=== PATIENT | female | born 1955 | race Caucasian/White ===

== ENCOUNTER 2016-09-22 10:34 | Inpatient (IN) | payer MEDICARE ==
[2016-09-22] MEDS ORDERED: HYDROmorphone 1 MG/ML 1 ML SYRINGE IVP STA ×2 (11:04→12:56)
[2016-09-22] MEDS ORDERED: ONDANSETRON 4 MG/2 ML VIAL IVP STA (11:04)
[2016-09-22] MEDS ORDERED: SODIUM CHLORIDE 0.9% 1,000 ML IV STA ×2 (11:04)
--- NOTE | 2016-09-22 11:10 | ED ---
General Adult HPI - General Source: patient, RN notes reviewed Mode of arrival: wheelchair Limitations: no limitations <Rory Rivera - Last Filed: 09/22/16 12:57> <Humble Yeung - Last Filed: 09/22/16 13:02> - General Chief complaint: Abdominal Pain Stated complaint: vomiting,side pain Time Seen by Provider: 09/22/16 10:48 - History of Present Illness Initial comments: Patient 61-year-old female who presents emergency room today with a chief complaint of right-sided abdominal pain and back pain 6 days. Does admit that she has had increased urinary frequency but only urinating small amounts. She states that she has seen a pink color on. His blood. Also admits that this pain is worse after she eats. she admits to symptoms of nausea vomiting. Denies any other complaints or symptoms at this time. Patient denies any recent fever, chills, shortness of breath, chest pain, back pain, numbness or tingling , constipation or diarrhea, headaches or visual changes, or any other complaints. (Rory Rivera) - Related Data Home Medications Medication Instructions Recorded Confirmed Amitriptyline HCl [Elavil] 100 mg PO HS 09/10/13 09/22/16 Lisinopril-Hctz (Unknown Dose) 1 tab PO DAILY 09/22/16 09/22/16 Morphine Sulfate ER [Ms Contin 30 mg PO Q12HR 09/22/16 09/22/16 30Mg] predniSONE 10 mg PO DAILY 09/22/16 09/22/16 Allergies Allergy/AdvReac Type Severity Reaction Status Date / Time ketorolac tromethamine Allergy Anaphylaxis Verified 09/22/16 10:57 [From Toradol] metoclopramide HCl Allergy Anaphylaxis Verified 09/22/16 10:57 [From Reglan] NSAIDS (Non-Steroidal Allergy Nausea & Verified 09/22/16 10:57 Anti-Inflamma Vomiting prochlorperazine edisylate Allergy Anaphylaxis Verified 09/22/16 10:57 [From Compazine] prochlorperazine maleate Allergy Anaphylaxis Verified 09/22/16 10:57 [From Compazine] Sulfa (Sulfonamide Allergy Rash/Hives Verified 09/22/16 10:57 Antibiotics) acetaminophen [From Tylenol] AdvReac Unknown Verified 09/22/16 10:57 Review of Systems ROS Other: All systems not noted in ROS Statement are negative. <Rory Rivera - Last Filed: 09/22/16 12:57> ROS Other: All systems not noted in ROS Statement are negative. <Humble Yeung - Last Filed: 09/22/16 13:02> ROS Statement: Those systems with pertinent positive or pertinent negative responses have been documented in the HPI. Past Medical History Past Medical History: Asthma, Blood Disorder, Cancer, GI Bleed, Hypertension, Pneumonia Additional Past Medical History / Comment(s): Multiple tick bites and negative for Lyme disease, diagnosed with Ellerbe spotted fever, basal cell carcinoma , chronic back pain.HAS CLL History of Any Multi-Drug Resistant Organisms: C-DIFF Date of last positivie culture/infection: OCTOBER 2013 MDRO Source:: STOOL Past Surgical History: Appendectomy, Back Surgery, Section, Hysterectomy, Tonsillectomy Additional Past Surgical History / Comment(s): Removal of basal cell carcinoma from the face, colonoscopy positive for diverticulosis. Past Anesthesia/Blood Transfusion Reactions: No Reported Reaction Past Psychological History: No Psychological Hx Reported Smoking Status: Former smoker Past Alcohol Use History: None Reported Additional Past Alcohol Use History / Comment(s): Patient is and lives in the family with her . They've been traveling cross country for the last 6 years from [place], [place], [place], [place] and [place] as well as [place]. No significant international travel. They have had a pet cat that recently from tickborne disease. They do have a cat at this time. She does have a history of tobacco smoking for 5 years and quit in 1979. Patient denies any medical marijuana, marijuana, street drug use or alcohol use. Patient her have been traveling in an RV for the past 6 years after their son was murdered in a home invasion. Past Drug Use History: None Reported - Past Family History Mother Family Medical History: Coronary Artery Disease (CAD) Father Family Medical History: Cancer Additional Family Medical History / Comment(s): father lung cancer <Rory Rivera - Last Filed: 09/22/16 12:57> General Exam Limitations: no limitations <Rory Rivera - Last Filed: 09/22/16 12:57> Medical Decision Making - Lab Data Result diagrams: 09/22/16 11:29 09/22/16 11:29 <Rory Rivera Last Filed: 09/22/16 12:57> - Lab Data Result diagrams: 09/22/16 11:29 09/22/16 11:29 <Humble Yeung - Last Filed: 09/22/16 13:02> - Medical Decision Making Patient's ultrasound reviewed and does show evidence for cholelithiasis, common bile duct dilated. she will be admitted to the hospital or on antibiotics of Zosyn here in the emergency room. (Rory Rivera) Medical decision-making. The patient has had 6 days of right upper quadrant pain radiating to the right flank. Urine is clean. Ultrasound of the right upper quadrant was reviewed by radiologist and his impression is cholelithiasis , correlate for possible cholecystitis, common bile duct is dilated, consider gastroenterology consult as read by Dr. Dallas. 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 At time and still sees Dr. Delgado will be consulted. Patient be kept nothing by mouth at this time started on Zosyn. The case is discussed with on-call general surgeon Dr. dr hansonania patient be admitted to his service. Examination found the patient with positive Knapp sign or upper quadrant. Dr. Yeung (Humble Yeung) - Lab Data Lab Results 09/22/16 09/22/16 09/22/16 Range/Units 11:05 11:29 11:29 WBC 22.7 H (3.8-10.6) k/uL RBC 4.25 (3.80-5.40) m/uL Hgb 12.5 (11.4-16.0) gm/dL Hct 40.6 (34.0-46.0) % MCV 95.5 (80.0-100.0) fL MCH 29.3 (25.0-35.0) pg MCHC 30.7 L (31.0-37.0) g/dL RDW 17.4 H (11.5-15.5) % Plt Count 257 (150-450) k/uL Neutrophils % (Manual) 22.0 % Band Neutrophils % 2.0 % Lymphocytes % (Manual) 64.0 % Monocytes % (Manual) 7.0 % Eosinophils % (Manual) 5.0 % Neutrophils # (Manual) 5.4 (1.3-7.7) k/uL Lymphocytes # (Manual) 14.5 H (1.0-4.8) k/uL Monocytes # (Manual) 1.6 H (0-1.0) k/uL Eosinophils # (Manual) 1.1 H (0-0.7) k/uL Nucleated RBCs 0 (0-0) /100 WBC Manual Slide Review Performed Hypochromasia Marked Anisocytosis Slight Sodium 141 (137-145) mmol/L Potassium 3.7 (3.5-5.1) mmol/L Chloride 109 H (98-107) mmol/L Carbon Dioxide 22 (22-30) mmol/L Anion Gap 10 mmol/L BUN 9 (7-17) mg/dL Creatinine 0.70 (0.52-1.04) mg/dL Est GFR (MDRD) Af Amer >60 (>60 ml/min/1.73 sqM) Est GFR (MDRD) Non-Af >60 (>60 ml/min/1.73 sqM) Glucose 92 (74-99) mg/dL Calcium 9.4 (8.4-10.2) mg/dL Total Bilirubin 0.2 (0.2-1.3) mg/dL AST 60 H (14-36) U/L ALT 72 H (9-52) U/L Alkaline Phosphatase 115 (38-126) U/L Total Protein 5.9 L (6.3-8.2) g/dL Albumin 3.6 (3.5-5.0) g/dL Amylase 38 (30-110) U/L Lipase 66 (23-300) U/L Urine Color Yellow Urine Appearance Cloudy H (Clear) Urine pH 6.5 (5.0-8.0) Ur Specific [place] 1.021 (1.001-1.035) Urine Protein 1+ H (Negative) Urine Glucose (UA) Negative (Negative) Urine Ketones 1+ H (Negative) Urine Blood Negative (Negative) Urine Nitrite Negative (Negative) Urine Bilirubin 1+ H (Negative) Urine Urobilinogen 3.0 (<2.0) mg/dL Ur Leukocyte Esterase Small H (Negative) Urine WBC <1 (0-5) /hpf Ur Squamous Epith Cells <1 (0-4) /hpf Urine Mucus Rare H (None) /hpf Disposition Time of Disposition: 12:58 <Rory Rivera - Last Filed: 09/22/16 12:57> <Humble Yeung - Last Filed: 09/22/16 13:02> Clinical Impression: Choledocholithiasis Disposition: ADMITTED IP TO THIS HOSP Referrals: None,Stated [Primary Care Provider] - 1-2 days
[2016-09-22 11:37] LABS: Appearance,Urine Cloudy (Clear); Bilirubin,Urine 1+ (Negative); Glucose,Urine (UA) Negative (Negative); Ketones,Urine 1+ (Negative); Leukocyte Esterase,Urine Small (Negative); Mucus,Urine Rare /hpf; Nitrite,Urine Negative (Negative); PH, Urine 6.5 (5.0-8.0); Particle Count 747; Protein,Urine 1+ (Negative); Specific Gravity,Urine 1.021 (1.001-1.035); Squamous Epithelial Cell,Urine <1 /hpf (0-4); UA Billing (MACRO vs. MICRO) MICRO; WBC,Urine <1 /hpf (0-5)
--- NOTE | 2016-09-22 11:48 | XR ---
EXAMINATION TYPE: XR KUB DATE OF EXAM ORDERED: 09/22/2016 HISTORY: abdominal pain. COMPARISON: Previous study dated 12/04/2011. FINDINGS: There has been interval transpedicular fusion extending from L2 to L4. There is been a ontiveros inectomy at these levels. Spacing material is present. The abdominal gas pattern is within normal limits. There is no evidence of obstruction or free air. N o unusual calcifications are seen. IMPRESSION: 1. NO ACUTE INTRA-ABDOMINAL ABNORMALITY. 2. POSTSURGICAL CHANGE.
[2016-09-22 12:21] LABS: Anisocytosis Slight; Aty Lym Flag Marked; CH 28.6; CHCM 30.1; HCT 40.6 % (34.0-46.0); HDW 3.37; HGB 12.5 gm/dL (11.4-16.0); Hypochromasia Marked; MCH 29.3 pg (25.0-35.0); MCHC 30.7 g/dL (31.0-37.0); MCV 95.5 fL (80.0-100.0); Mean Platelet Volume 7.8; RBC 4.25 m/uL (3.80-5.40); RDW 17.4 % (11.5-15.5); WBC 22.7 k/uL (3.8-10.6); WBC (Perox) 23.83
[2016-09-22 12:25] LABS: ALT 72 U/L (9-52); AST 60 U/L (14-36); Alkaline Phosphatase 115 U/L (38-126); Amylase 38 U/L (30-110); Blood Urea Nitrogen 9 mg/dL (7-17); Calcium 9.4 mg/dL (8.4-10.2); Carbon Dioxide 22 mmol/L (22-30); Glucose 92 mg/dL (74-99); Non-African American GFR(MDRD) >60 (>60 ml/min/1.73 sqM); Potassium 3.7 mmol/L (3.5-5.1); Sodium 141 mmol/L (137-145); Total Bilirubin 0.2 mg/dL (0.2-1.3); Total Protein 5.9 g/dL (6.3-8.2)
[2016-09-22 12:34] LABS: Add Differential Manual Differential; Anion Gap 10 mmol/L; Chloride 109 mmol/L (98-107)
--- NOTE | 2016-09-22 12:34 | US ---
EXAMINATION TYPE: US abdomen limited DATE OF EXAM: 09/22/2016 COMPARISON: US 12/12/2013 CLINICAL HISTORY: Pain. Nausea and vomiting EXAM MEASUREMENTS: Liver Length: 13.7 cm Gallbladder Wall: 0.5 cm CBD: 0.8 cm Right Kidney: 10.3 cm Patient of large body habitus with extensive midline bowel gas, 2 hours post prandial Pancreas: heterogeneous, pancreatic duct is 2 to 3 mm at the body Liver: limited visualization due to overlying bowel gas Gallbladder: cholelithiasis, thickened wall Evidence for sonographic Knapp's sign: patient very tender CBD: dilated Right Kidney: wnl There is no ascites. IMPRESSION: Exam is somewhat limited. Cholelithiasis, correlate for possible cholecystitis. Common bi le duct is dilated, consider gastroenterology consult.
[2016-09-22 12:40] LABS: Nucleated Red Blood Cells 0 /100 WBC (0-0); Total Cells Counted 100
[2016-09-22 12:46] LABS: Manual Review Performed
[2016-09-22] MEDS ORDERED: PIPERACILLIN-TAZOBACTAM 3.375 GM in DEXTROSE/WATER 1 50ML.BAG IVPB STA (12:57)
[2016-09-22] MEDS ORDERED: SODIUM CHLORIDE 0.9% 1,000 ML IV ONE (13:00)
[2016-09-22] MEDS ORDERED: NALOXONE 0.4 MG/ML 1 ML VIAL IV PRN (13:00)
[2016-09-22] MEDS: HYDROmorphone 1 MG/ML 1 ML SYRINGE IV PRN ×2 (16:40→20:08)
[2016-09-22] MEDS: ONDANSETRON 4 MG/2 ML VIAL IVP PRN (18:30)
[2016-09-22] MEDS: AMITRIPTYLINE HCL 50 MG TAB PO SCH (21:45)
[2016-09-22] MEDS: PIPERACILLIN-TAZOBACTAM 3.375 GM in DEXTROSE/WATER 1 50ML.BAG IVPB SCH (21:45)
[2016-09-23] MEDS: HYDROmorphone 1 MG/ML 1 ML SYRINGE IV PRN ×7 (00:06→21:14)
[2016-09-23] MEDS: PIPERACILLIN-TAZOBACTAM 3.375 GM in DEXTROSE/WATER 1 50ML.BAG IVPB SCH ×3 (05:14→21:33)
[2016-09-23] MEDS: ONDANSETRON 4 MG/2 ML VIAL IVP PRN ×2 (06:20→14:20)
[2016-09-23 07:40] LABS: ALT 53 U/L (9-52); AST 46 U/L (14-36); Alkaline Phosphatase 95 U/L (38-126); Anion Gap 9 mmol/L; Blood Urea Nitrogen 7 mg/dL (7-17); Calcium 8.5 mg/dL (8.4-10.2); Carbon Dioxide 21 mmol/L (22-30); Chloride 112 mmol/L (98-107); Glucose 90 mg/dL (74-99); Non-African American GFR(MDRD) >60 (>60 ml/min/1.73 sqM); Potassium 3.5 mmol/L (3.5-5.1); Sodium 142 mmol/L (137-145); Total Bilirubin 0.4 mg/dL (0.2-1.3); Total Protein 5.5 g/dL (6.3-8.2)
[2016-09-23 07:43] LABS: Anisocytosis Slight; Aty Lym Flag Marked; CH 28.8; CHCM 31.4; HCT 34.6 % (34.0-46.0); HDW 3.32; Hypochromasia Moderate; MCH 29.3 pg (25.0-35.0); MCHC 31.7 g/dL (31.0-37.0); MCV 92.3 fL (80.0-100.0); Mean Platelet Volume 7.5; RBC 3.75 m/uL (3.80-5.40); RDW 17.4 % (11.5-15.5); WBC 24.2 k/uL (3.8-10.6); WBC (Perox) 24.62
--- NOTE | 2016-09-23 08:10 | P.GSHP ---
History of Present Illness H&P Date: 09/22/16 Chief Complaint: Right upper quadrant pain This is a 61-year-old female who has had a several week history of right upper quadrant pain. Patient states the pain has been intermittent nature however worsened this morning. - Constitutional Constitutional: Reports as per HPI Past Medical History Past Medical History: Asthma, Blood Disorder, Cancer, COPD, GERD/Reflux, GI Bleed, Hypertension, Pneumonia, Seizure Disorder, Thyroid Disorder Additional Past Medical History / Comment(s): CLL, basal cell carcinoma, pt states she does not make gamma globulin and normally gets gammaglobulin infusions monthy but has not been received an infusion in 2 months, anemia, rectal bleed, diverticular dx, colitis, IBS, chronic back pain and R sided sciatica, pt states she has seizures and last seizure was few weeks ago, bilateral tinnitis, migraines, UTIs, thyroid problem in past, miguel mountain spotted fever, . History of Any Multi-Drug Resistant Organisms: C-DIFF Date of last positivie culture/infection: OCTOBER 2013 MDRO Source:: STOOL Past Surgical History: Appendectomy, Back Surgery, Section, Hysterectomy, Orthopedic Surgery, Tonsillectomy Additional Past Surgical History / Comment(s): Recent low back injections, past 4 low back surgery, cervical surgery, removal of basal cell carcinoma from the face, PICC lines since removed, R sided infusaport, BMAs with biopsy, R breast benign lumpectomy, D&C, EGD/colonoscopy Past Anesthesia/Blood Transfusion Reactions: No Reported Reaction Additional Past Anesthesia/Blood Transfusion Reaction / Comment(s): Pt received blood in 2008 without reaction. Past Psychological History: No Psychological Hx Reported Additional Psychological History / Comment(s): Pt resides with her spouse in their RV. They are back in [place] for the summer. Pt is independent. They have a dog. Smoking Status: Former smoker Past Alcohol Use History: None Reported Additional Past Alcohol Use History / Comment(s): Patient is and lives in the family RV with her . They've been traveling cross country for the last 6 years from [facility], [place], [place], [place] and [place] as well as [place]. No significant international travel. They have had a pet cat that recently from tickborne disease. They do have a dog at this time. She does have a history of tobacco smoking for 5 years and quit in 1979. Patient denies any medical marijuana, marijuana, street drug use or alcohol use. Patient her have been traveling in an for the past 6 years after their son was murdered in a home invasion. Past Drug Use History: None Reported - Past Family History Mother Family Medical History: Coronary Artery Disease (CAD) Father Family Medical History: Cancer Additional Family Medical History / Comment(s): father lung cancer Medications and Allergies Home Medications Medication Instructions Recorded Confirmed Type Amitriptyline HCl [Elavil] 100 mg PO HS 09/10/13 09/22/16 History Lisinopril-Hctz (Unknown Dose) 1 tab PO DAILY 09/22/16 09/22/16 History Morphine Sulfate ER [Ms Contin 30 mg PO Q12HR 09/22/16 09/22/16 History 30Mg] predniSONE 10 mg PO DAILY 09/22/16 09/22/16 History Allergies Allergy/AdvReac Type Severity Reaction Status Date / Time ketorolac tromethamine Allergy Anaphylaxis Verified 09/22/16 10:57 [From Toradol] metoclopramide HCl Allergy Anaphylaxis Verified 09/22/16 10:57 [From Reglan] NSAIDS (Non-Steroidal Allergy Nausea & Verified 09/22/16 10:57 Anti-Inflamma Vomiting prochlorperazine edisylate Allergy Anaphylaxis Verified 09/22/16 10:57 [From Compazine] prochlorperazine maleate Allergy Anaphylaxis Verified 09/22/16 10:57 [From Compazine] Sulfa (Sulfonamide Allergy Rash/Hives Verified 09/22/16 10:57 Antibiotics) acetaminophen [From Tylenol] AdvReac Unknown Verified 09/22/16 10:57 Surgical - Exam Vital Signs Temp Pulse Resp BP Pulse Ox 98.1 F 88 20 133/79 98 09/22/16 10:34 09/22/16 10:34 09/22/16 10:34 09/22/16 10:34 09/22/16 10:34 - General well developed, moderate distress - Eyes PERRL - ENT normal pinna - Neck no masses - Respiratory normal expansion - Cardiovascular Rhythm: regular - Abdomen Mild right upper quadrant pain Abdomen: soft, tender Results - Labs 09/23/16 06:38 09/23/16 06:38 Abnormal Lab Results - Last 24 Hours (Table) 09/22/16 09/22/16 09/22/16 Range/Units 11:05 11:29 11:29 WBC 22.7 H (3.8-10.6) k/uL RBC (3.80-5.40) m/uL Hgb (11.4-16.0) gm/dL MCHC 30.7 L (31.0-37.0) g/dL RDW 17.4 H (11.5-15.5) % Lymphocytes # (Manual) 14.5 H (1.0-4.8) k/uL Monocytes # (Manual) 1.6 H (0-1.0) k/uL Eosinophils # (Manual) 1.1 H (0-0.7) k/uL Chloride 109 H (98-107) mmol/L Carbon Dioxide (22-30) mmol/L AST 60 H (14-36) U/L ALT 72 H (9-52) U/L Total Protein 5.9 L (6.3-8.2) g/dL Albumin (3.5-5.0) g/dL Urine Appearance Cloudy H (Clear) Urine Protein 1+ H (Negative) Urine Ketones 1+ H (Negative) Urine Bilirubin 1+ H (Negative) Ur Leukocyte Esterase Small H (Negative) Urine Mucus Rare H (None) /hpf 09/23/16 09/23/16 Range/Units 06:38 06:38 WBC 24.2 H (3.8-10.6) k/uL RBC 3.75 L (3.80-5.40) m/uL Hgb 11.0 L (11.4-16.0) gm/dL MCHC (31.0-37.0) g/dL RDW 17.4 H (11.5-15.5) % Lymphocytes # (Manual) (1.0-4.8) k/uL Monocytes # (Manual) (0-1.0) k/uL Eosinophils # (Manual) (0-0.7) k/uL Chloride 112 H (98-107) mmol/L Carbon Dioxide 21 L (22-30) mmol/L AST 46 H (14-36) U/L ALT 53 H (9-52) U/L Total Protein 5.5 L (6.3-8.2) g/dL Albumin 3.0 L (3.5-5.0) g/dL Urine Appearance (Clear) Urine Protein (Negative) Urine Ketones (Negative) Urine Bilirubin (Negative) Ur Leukocyte Esterase (Negative) Urine Mucus (None) /hpf Microbiology - Last 24 Hours (Table) 09/22/16 12:55 Urine Culture - Preliminary Urine,Voided Diabetes panel 09/22/16 09/23/16 Range/Units 11:29 06:38 Sodium 141 142 (137-145) mmol/L Potassium 3.7 3.5 (3.5-5.1) mmol/L Chloride 109 H 112 H (98-107) mmol/L Carbon Dioxide 22 21 L (22-30) mmol/L BUN 9 7 (7-17) mg/dL Creatinine 0.70 0.68 (0.52-1.04) mg/dL Glucose 92 90 (74-99) mg/dL Calcium 9.4 8.5 (8.4-10.2) mg/dL AST 60 H 46 H (14-36) U/L ALT 72 H 53 H (9-52) U/L Alkaline Phosphatase 115 95 (38-126) U/L Total Protein 5.9 L 5.5 L (6.3-8.2) g/dL Albumin 3.6 3.0 L (3.5-5.0) g/dL Calcium panel 09/22/16 09/23/16 Range/Units 11:29 06:38 Calcium 9.4 8.5 (8.4-10.2) mg/dL Albumin 3.6 3.0 L (3.5-5.0) g/dL Pituitary panel 09/22/16 09/23/16 Range/Units 11:29 06:38 Sodium 141 142 (137-145) mmol/L Potassium 3.7 3.5 (3.5-5.1) mmol/L Chloride 109 H 112 H (98-107) mmol/L Carbon Dioxide 22 21 L (22-30) mmol/L BUN 9 7 (7-17) mg/dL Creatinine 0.70 0.68 (0.52-1.04) mg/dL Glucose 92 90 (74-99) mg/dL Calcium 9.4 8.5 (8.4-10.2) mg/dL Adrenal panel 09/22/16 09/23/16 Range/Units 11:29 06:38 Sodium 141 142 (137-145) mmol/L Potassium 3.7 3.5 (3.5-5.1) mmol/L Chloride 109 H 112 H (98-107) mmol/L Carbon Dioxide 22 21 L (22-30) mmol/L BUN 9 7 (7-17) mg/dL Creatinine 0.70 0.68 (0.52-1.04) mg/dL Glucose 92 90 (74-99) mg/dL Calcium 9.4 8.5 (8.4-10.2) mg/dL Total Bilirubin 0.2 0.4 (0.2-1.3) mg/dL AST 60 H 46 H (14-36) U/L ALT 72 H 53 H (9-52) U/L Alkaline Phosphatase 115 95 (38-126) U/L Total Protein 5.9 L 5.5 L (6.3-8.2) g/dL Albumin 3.6 3.0 L (3.5-5.0) g/dL - Imaging US - abdomen: report reviewed (Cholelithiasis with thickened gallbladder wall) Assessment and Plan Plan: Acute cholecystitis. Patient received IV antibiotics. She'll undergo laparoscopic cholecystectomy his admission.
[2016-09-23 08:48] LABS: Add Differential Manual Differential
[2016-09-23 08:55] LABS: Nucleated Red Blood Cells 0 /100 WBC (0-0); Total Cells Counted 200
[2016-09-23 15:39] VITALS: BMI 33.9
[2016-09-23] MEDS ORDERED: IV FLUID CONTINUATION 1,000 ML IV ONE (16:54)
[2016-09-23] MEDS ORDERED: HEPARIN SODIUM,PORCINE 5,000 UNIT/ML 1 ML VIAL SQ ONE (17:12)
[2016-09-23] MEDS ORDERED: HYDROCORTISONE SUCCINATE 100 MG/2 ML VIAL IV ONE (17:32)
[2016-09-23] MEDS ORDERED: ONDANSETRON 4 MG/2 ML VIAL IVP ONE (17:32)
[2016-09-23] MEDS ORDERED: GLYCOPYRROLATE 0.2 MG/ML 2 ML VIAL ONE (17:42)
[2016-09-23] MEDS ORDERED: fentaNYL (PF) 50 MCG/ML 2 ML AMP ONE (17:42)
[2016-09-23] MEDS ORDERED: SUCCINYLCHOLINE CHLORIDE 100 MG/5 ML SYR IV ONE (17:42)
[2016-09-23] MEDS ORDERED: LIDOCAINE 1% INJ 10MG/ML (20 ML MDV) ONE (17:42)
[2016-09-23] MEDS ORDERED: NEOSTIGMINE 1 MG/ML 10 ML VIAL ONE (17:42)
[2016-09-23] MEDS ORDERED: PROPOFOL 10 MG/ML 20 ML VIAL IV ONE (17:42)
[2016-09-23] MEDS ORDERED: ROCURONIUM BROMIDE 10 MG/ML 10 ML VIAL IV ONE (17:42)
[2016-09-23] MEDS ORDERED: MIDAZOLAM 2 MG/2 ML VIAL ONE (17:42)
[2016-09-23] MEDS ORDERED: BUPIVACAIN-EPI 0.25%-1:200,000 30 ML VIAL IJ ONE (17:56)
[2016-09-23] MEDS ORDERED: NALOXONE 0.4 MG/ML 1 ML VIAL IV PRN (18:14)
[2016-09-23] MEDS ORDERED: LACTATED RINGERS 1,000 ML IV ONE (18:14)
[2016-09-23] MEDS ORDERED: HYDROcodone/APAP 5-325MG 1 EACH TAB PO PRN ×2 (18:14)
--- NOTE | 2016-09-23 18:14 | P.OP ---
Date of Procedure: 09/23/16 Preoperative Diagnosis: Cholecystitis Postoperative Diagnosis: Cholecystitis Procedure(s) Performed: Laparoscopic cholecystectomy Implants: Anesthesia: BUCK Surgeon: Alex Ribeiro Estimated Blood Loss (ml): 5 Pathology: other (Gallbladder) Condition: stable Disposition: PACU Indications for Procedure: Operative Findings: Description of Procedure: MThe patient was placed on the operating table. The patient received a general endotracheal tube anesthesia. The patients abdomen was prepped and draped in the usual sterile fashion. Through an infraumbilical stab incision , the fascia of the anterior abdominal wall was grasped with a pair of Kochers and then the Veress needle was placed in the peritoneal cavity. Position of the Veress needle was confirmed with positive drop test. The abdomen was then insufflated. After adequate insufflation, the 10 mm trocar was placed in the peritoneal cavity. Following this the laparoscope was placed in the peritoneal cavity. The patient was placed in the head-up, right side up position and then a 5 mm trocar was placed in the right lateral and right subcostal position under direct visualization. A 8 mm trocar was placed in the epigastric position. The gallbladder was grasped in the fundus and infundibulum. Traction on the gallbladder was placed in the lateral and the cephalad positions. The triangle of Calot was visualized.. The cystic duct was bluntly dissected until the union of the cystic duct and common bile duct was seen. The cystic duct was then divided and sealed with the Harmonic scissors. A PDS Endoloop was then placed throughout the cystic duct stump. The cystic artery divided and sealed with the Harmonic scissors. The gallbladder was then removed from the liver bed using Harmonic scissors. The gallbladder was then extracted through the epigastric port site. Operative field was checked for any bleeding spots and Harmonic scissors was used to coagulate the liver bed. The abdomen was irrigated. The trocars were removed. The skin was closed using interrupted 3-0 Vicryl suture. Dermabond dressing were applied. The patient tolerated the procedure well.
[2016-09-23] MEDS ORDERED: KETOROLAC 30 MG/ML 1 ML VIAL IVP SCH (18:15)
[2016-09-23] MEDS: HYDROmorphone 1 MG/ML 1 ML SYRINGE IVP ONE ×4 (18:51→19:15)
[2016-09-23] MEDS ORDERED: SODIUM CHLORIDE 0.9% 1,000 ML IV ONE (19:18)
--- NOTE | 2016-09-23 20:05 | P.CONS ---
History of Present Illness - Reason for Consult Consult date: 09/23/16 CLL Requesting physician: Rory Rivera - Chief Complaint RUQ and right shoulder pain, choleycystitis - History of Present Illness Ms. Siegel is a pleasant female with a history of CLL diagnosed in 2007. She had bone marrow in [place] and was treated with fludarabine and Cytoxan for one cycle in 2011 with excellent response so she was placed on observation. Pt has moved several times and while in [place] in 2013 she received 1 cycle of Treanda and Rituxan for increasing WBC, she again had a good response and decided against continuing. In 08/30 she was seen at [facility], her CBC showed no progression. She had been receiving monthly IVIg infusions in [place] from 01/29 to 07/31 for skin lesions with no changes, she had another IVIg infusion in 09/30 as her IgG levels were very low. CT scan of abdomen/pevis 11/03/13 which revealed no splenomegaly or lymphadenopathies, diffusely sclerotic osseous structures, bone scan done on 12/29/2013 revealed mild osseous changes, consistent with CLL. Bone marrow biopsy done 01/17/2014 revealed diffuse bone marrow involvement with CLL at 95%. Pt was last seen by Dr. Delgado 01/26/14 and she was moving. Pt states that treatment was attempted with irbutinib but she could not tolerate it so this was stopped. She states monthly IVIg infusions and CBC monitoring only. She just came back to the area in the last few weeks. She is admitted with choleycystitis and sched for removal. Review of Systems All systems: negative Constitutional: Reports as per HPI Past Medical History Past Medical History: Asthma, Blood Disorder, Cancer, COPD, GERD/Reflux, GI Bleed, Hypertension, Pneumonia, Seizure Disorder, Thyroid Disorder Additional Past Medical History / Comment(s): CLL, basal cell carcinoma, pt states she does not make gamma globulin and normally gets gammaglobulin infusions monthy but has not been received an infusion in 2 months, anemia, rectal bleed, diverticular dx, colitis, IBS, chronic back pain and R sided sciatica, pt states she has seizures and last seizure was few weeks ago, bilateral tinnitis, migraines, UTIs, thyroid problem in past, miguel mountain spotted fever, . History of Any Multi-Drug Resistant Organisms: C-DIFF Year Discovered:: OCTOBER 2013 MDRO Source:: STOOL Past Surgical History: Appendectomy, Back Surgery, Section, Hysterectomy, Orthopedic Surgery, Tonsillectomy Additional Past Surgical History / Comment(s): Recent low back injections, past 4 low back surgery, cervical surgery, removal of basal cell carcinoma from the face, PICC lines since removed, R sided infusaport, BMAs with biopsy, R breast benign lumpectomy, D&C, EGD/colonoscopy Past Anesthesia/Blood Transfusion Reactions: No Reported Reaction Additional Past Anesthesia/Blood Transfusion Reaction / Comm: Pt received blood in 2008 without reaction. Past Psychological History: No Psychological Hx Reported Additional Psychological History / Comment(s): Pt resides with her spouse in their RV. They are back in [place] for the summer. Pt is independent. They have a dog. Smoking Status: Former smoker Past Alcohol Use History: None Reported Additional Past Alcohol Use History / Comment(s): Patient is and lives in the family RV with her . They've been traveling cross country for the last 6 years from [facility], [place], [place], [place] and [place] as well as [place]. No significant international travel. They have had a pet cat that recently from tickborne disease. They do have a dog at this time. She does have a history of tobacco smoking for 5 years and quit in 1979. Patient denies any medical marijuana, marijuana, street drug use or alcohol use. Patient her have been traveling in an RV for the past 6 years after their son was murdered in a home invasion. Past Drug Use History: None Reported - Past Family History Mother Family Medical History: Coronary Artery Disease (CAD) Father Family Medical History: Cancer Additional Family Medical History / Comment(s): father lung cancer Medications and Allergies Home Medications Medication Instructions Recorded Confirmed Type Amitriptyline HCl [Elavil] 100 mg PO HS 09/10/13 09/22/16 History Lisinopril-Hctz (Unknown Dose) 1 tab PO DAILY 09/22/16 09/22/16 History Morphine Sulfate ER [Ms Contin 30 mg PO Q12HR 09/22/16 09/22/16 History 30Mg] predniSONE 10 mg PO DAILY 09/22/16 09/22/16 History Allergies Allergy/AdvReac Type Severity Reaction Status Date / Time ketorolac tromethamine Allergy Anaphylaxis Verified 09/23/16 17:04 [From Toradol] metoclopramide HCl Allergy Anaphylaxis Verified 09/23/16 17:04 [From Reglan] NSAIDS (Non-Steroidal Allergy Nausea & Verified 09/23/16 17:04 Anti-Inflamma Vomiting prochlorperazine edisylate Allergy Anaphylaxis Verified 09/23/16 17:04 [From Compazine] prochlorperazine maleate Allergy Anaphylaxis Verified 09/23/16 17:04 [From Compazine] Sulfa (Sulfonamide Allergy Rash/Hives Verified 09/23/16 17:04 Antibiotics) acetaminophen [From Tylenol] AdvReac Unknown Verified 09/23/16 17:04 Physical Exam Vitals: Vital Signs Temp Pulse Pulse Pulse Resp BP Pulse Ox 09/23/16 19:15 91 16 128/60 96 09/23/16 19:02 87 16 121/58 96 09/23/16 19:01 99 16 122/60 96 09/23/16 18:45 90 16 137/73 96 09/23/16 18:30 98.6 F 96 16 144/80 96 09/23/16 16:55 98.4 F 90 16 152/87 98 09/23/16 15:01 98.5 F 87 16 150/97 96 09/23/16 14:00 98.5 F 87 18 150/97 96 09/23/16 08:00 80 78 18 09/23/16 07:00 98.1 F 80 18 145/86 99 09/23/16 02:00 98.1 F 78 16 125/83 95 09/22/16 20:00 97.4 F L 78 18 153/82 Intake and Output 09/23/16 09/23/16 09/23/16 06:59 14:59 22:59 Intake Total 1400 750 Output Total 5 Balance 1400 745 Intake: IV 750 Intake, IV Titration 1400 Amount Piperacillin-Tazobactam 3 200 .375 gm In Dextrose/Water 1 50ml.bag @ 12.5 mls/hr IVPB Q8H [facility] Rx#: [id number] Sodium Chloride 0.9% 1, 1200 000 ml @ 100 mls/hr IV . Q10H [facility] Rx#:[id number] Output: Estimated Blood Loss 5 Other: Voiding Method Toilet # Voids 2 1 Weight 95.254 kg Patient Weight 09/24/16 06:59 Weight 95.254 kg - Constitutional General appearance: cooperative, no acute distress, obese - EENT Eyes: anicteric sclerae, EOMI, PERRLA, normal appearance ENT: hearing grossly normal, normal oropharynx - Neck Neck: no lymphadenopathy - Respiratory Respiratory: bilateral: CTA - Cardiovascular Rhythm: regular Heart sounds: normal: S1, S2 leg Peripheral Edema: bilateral: None - Gastrointestinal General gastrointestinal: no absent bowel sounds, no decreased bowel sounds, no distended, no hepatomegaly, no hyperactive bowel sounds, normal bowel sounds, no organomegaly, no rigid, no scaphoid, soft, no splenomegaly, tenderness, no umbilical hernia, no ventral hernia Localized gastrointestinal: tender: RUQ (mild) - Neurologic Neurologic: CNII-XII intact - Musculoskeletal Musculoskeletal: strength equal bilaterally - Psychiatric Psychiatric: A&O x's 3, appropriate affect, intact judgment & insight Results CBC & Chem 7: 09/23/16 06:38 09/23/16 06:38 Labs: Abnormal Lab Results - Last 24 Hours (Table) 09/23/16 09/23/16 Range/Units 06:38 06:38 WBC 24.2 H (3.8-10.6) k/uL RBC 3.75 L (3.80-5.40) m/uL Hgb 11.0 L (11.4-16.0) gm/dL RDW 17.4 H (11.5-15.5) % Lymphocytes # (Manual) 16.7 H (1.0-4.8) k/uL Chloride 112 H (98-107) mmol/L Carbon Dioxide 21 L (22-30) mmol/L AST 46 H (14-36) U/L ALT 53 H (9-52) U/L Total Protein 5.5 L (6.3-8.2) g/dL Albumin 3.0 L (3.5-5.0) g/dL Microbiology - Last 24 Hours (Table) 09/22/16 13:42 Blood Culture - Preliminary Blood No Growth after 24 hours 09/22/16 12:55 Urine Culture - Preliminary Urine,Voided Abdominal x-ray: report reviewed US - abdomen: report reviewed Assessment and Plan (1) Chronic lymphocytic leukemia of B-cell type in remission Narrative/Plan: Pt has had intermittent treatments and been monitored for many years. Nothing to suggest acute hematologic condition, pt is ok from Hem standpoint to have choleycystectomy. Ig levels have been ordered, no acute interventions at this time, f/u Dr. Delgado few weeks. Status: Chronic (2) Leukocytosis Narrative/Plan: Not significantly increased from pt baseline. Pt just back in the area from [place], she will f/u with Dr. Delgado in a few weeks and have CBC rechecked. Status: Acute
[2016-09-23] MEDS: AMITRIPTYLINE HCL 50 MG TAB PO SCH (21:33)
[2016-09-24 04:39] LABS: Immunoglobulin G 431 mg/dL (700 - 1600)
[2016-09-24] MEDS: ONDANSETRON 4 MG/2 ML VIAL IVP PRN ×2 (04:41→13:46)
[2016-09-24] MEDS: HYDROmorphone 1 MG/ML 1 ML SYRINGE IV PRN ×7 (04:42→23:25)
[2016-09-24] MEDS: PIPERACILLIN-TAZOBACTAM 3.375 GM in DEXTROSE/WATER 1 50ML.BAG IVPB SCH ×3 (04:48→22:08)
[2016-09-24 07:42] LABS: Anisocytosis Slight; Aty Lym Flag Marked; HCT 35.9 % (34.0-46.0); HDW 3.62; HGB 11.9 gm/dL (11.4-16.0); Hypochromasia Slight; MCH 29.4 pg (25.0-35.0); MCHC 33.1 g/dL (31.0-37.0); MCV 88.6 fL (80.0-100.0); Mean Platelet Volume 7.1; Poikilocytosis Slight; RBC 4.05 m/uL (3.80-5.40); RDW 17.2 % (11.5-15.5); WBC (Perox) 39.29
[2016-09-24 07:44] LABS: ALT 73 U/L (9-52); AST 69 U/L (14-36); Alkaline Phosphatase 131 U/L (38-126); Anion Gap 12 mmol/L; Blood Urea Nitrogen 6 mg/dL (7-17); Calcium 9.6 mg/dL (8.4-10.2); Carbon Dioxide 20 mmol/L (22-30); Chloride 110 mmol/L (98-107); Glucose 98 mg/dL (74-99); Non-African American GFR(MDRD) >60 (>60 ml/min/1.73 sqM); Sodium 142 mmol/L (137-145); Total Bilirubin 0.6 mg/dL (0.2-1.3); Total Protein 6.1 g/dL (6.3-8.2)
[2016-09-24 07:45] LABS: WBC 38.1 k/uL (3.8-10.6)
[2016-09-24 08:01] LABS: Glucose,Whole Blood 96 mg/dL (75-99)
[2016-09-24] MEDS ORDERED: Potassium Replacement Protocol 1 EACH MISC MISCELLANE PRN ×2 (08:05→17:17)
[2016-09-24 08:11] LABS: Add Differential Manual Differential
[2016-09-24 08:14] LABS: Band Neutrophils % 0.5 %; Metamyelocytes % 0.5 %; Nucleated Red Blood Cells 0 /100 WBC (0-0); Total Cells Counted 200
[2016-09-24 08:28] LABS: Polychromasia Present; Spherocytes Present
[2016-09-24] MEDS: POTASSIUM CHLORIDE 10 MEQ, LIDOCAINE 2% INJ 10 MG in SODIUM CHLORIDE 0.9% 100 ML IV SCH ×4 (09:23→19:39)
--- NOTE | 2016-09-24 13:00 | P.PN ---
Progress Note - Text The patient is resting comfortably in her bed. She has some complaints of incisional pain. She also has some mild nausea. On exam her vital signs are stable. Her abdomen soft. His incision sites are clean dry and intact. Leukocytosis has increased her white count is now 34,000. Dr. Perry from infectious we'll see the patient today. Her leukocytosis is most likely due to her chronic CLL. Patient will be observed closely. Hopefully we discharged home the next 24-48 hours.
[2016-09-24] MEDS: AMITRIPTYLINE HCL 50 MG TAB PO SCH (20:03)
[2016-09-24] MEDS: POTASSIUM CHLORIDE ER 20 MEQ TAB.ER PO SCH ×2 (20:03→22:09)
[2016-09-24] MEDS ORDERED: IMMUNE GLOBULIN 1 GM/10 ML VL IV ONE (20:13)
[2016-09-24] MEDS ORDERED: IMMUNE GLOBULIN (HUMAN-IGG) 20 GM in EMPTY BAG 1 BAG IV NR (22:00)
[2016-09-24] MEDS ORDERED: IMMUNE GLOBULIN (HUMAN-IGG) 20 GM in EMPTY BAG 1 BAG IV ONE (22:00)
[2016-09-25] MEDS: HYDROmorphone 1 MG/ML 1 ML SYRINGE IV PRN ×5 (02:59→17:19)
[2016-09-25] MEDS: ONDANSETRON 4 MG/2 ML VIAL IVP PRN ×3 (03:00→20:01)
[2016-09-25] MEDS: PIPERACILLIN-TAZOBACTAM 3.375 GM in DEXTROSE/WATER 1 50ML.BAG IVPB SCH ×3 (06:05→20:03)
[2016-09-25] MEDS: POTASSIUM CHLORIDE ER 20 MEQ TAB.ER PO SCH ×5 (08:46→23:05)
--- NOTE | 2016-09-25 16:08 | P.PN ---
Progress Note - Text The patient feels better. Her hypokalemia was corrected yesterday. She's had minimal oral intake. On exam her vital signs are stable. Her abdomen soft. Status post laparoscopic cholecystectomy. Patiently discharged the next 24-48 hours when she is medically cleared.
--- NOTE | 2016-09-25 16:24 | CONS ---
DATE OF CONSULTATION: 09/24/2016 REASON FOR CONSULTATION: Leukocytosis post cholecystectomy. The patient is a 61 -year-old female with past medical history significant for ( ) back in 2007 for which the patient has been previously treated with ( ). The patient did mention that recently when she was in [place], her white count was elevated but it was in the 20,000 range. The patient has been diagnosed with gallstone with ultrasound of the abdomen showing cholelithiasis, ( ) possible cholecystitis with thickened gallbladder wall. The patient was giving a history of pain in the right upper quadrant and slightly in the flank area for the last three days prior to admission to the hospital. The patient says pain has been mostly dull aching pain about 3 to 7 out of 10 in intensity. Some nausea but no vomiting with it. The patient subsequently did have a laparoscopic cholecystectomy done by Dr. Ribeiro. Patient though do not have any high grade fever. The patient, however, did have an elevated white count, admission of 22.7 that has gradually increased to 24.7 yesterday, and 38.1 today; hence, ID was consulted for further recommendation regarding antibiotic therapy. The patient did give some history of decreased urine output and some burning but no frequency of any urgency. Her urine has been slightly positive and UTI did show ( ) gram negative bacilli. The patient has been treated with Zosyn during this time. The patient denies any significant chest pain or shortness of breath or cough. No further nausea, vomiting or any diarrhea. REVIEW OF SYSTEMS: CONSTITUTIONAL: Positive for weakness but no high-grade fever. EYES: No complaint. ENT: No complaint. RESPIRATORY: No complaint. GASTROINTESTINAL: No complaint. GENITOURINARY: As per HPI. GASTROINTESTINAL: As per HPI. MUSCULOSKELETAL: No complaint. INTEGUMENTARY: No complaint. PSYCHOLOGICAL: No complaint. ENDOCRINE: No complaint. NEUROLOGIC: No complaint. PAST MEDICAL HISTORY: Significant for asthma, CLL, ( ) GI bleed, hypertension, pneumonia, seizure disorder, hypothyroidism. PAST SURGICAL HISTORY: Appendectomy, back surgery, , hysterectomy, tonsillectomy, ( ) biopsy. SOCIAL HISTORY: Remote history of smoking. No drinking or drug use. FAMILY HISTORY: Mother with history of coronary artery disease, father with history of lung cancer. ALLERGIES TO MULTIPLE MEDICATIONS INCLUDIN. ( ). 2. ( ). 3. Reglan. 4. ( ). 5. Ketorolac. Medications include the patient is currently on: 1. [place]. 2. Elavil. 3. Dilaudid. 4. Narcan. 5. Zofran. 6. Piptazobactam. On examination, blood pressure is 155/83 with a pulse of 85, temperature 98.2. She is 96% on room air. General description is a middle-age female lying in bed in no distress. No tachypnea or accessory muscles of respiration use. HEENT examination shows no pallor or scleral icterus. Oral mucosa membranes dry. NECK: Trachea central. There is no thyromegaly. LUNGS: Unlabored breathing. Clear to auscultation anteriorly. No wheeze or crackle. HEART: S1, S2. Regular rate and rhythm. ABDOMEN: Soft, mild tenderness. No guarding or rigidity. EXTREMITIES: No edema of feet. Examination ( ) some rash on the facial area. No mass palpable. NEUROLOGICAL: The patient is awake, alert and oriented times three. Mood and affect normal. LABS: Hemoglobin is 11.9, white count ( ) with a BUN 6, creatinine 0.60. Potassium has been low. ( ) has been slightly positive. Urine showing gram negative. Blood cultures are negative. DIAGNOSTIC IMPRESSION AND PLAN: The patient with elevated white count, which is likely multifactorial in this patient who does have evidence of an acute cholecystitis, status post cholecystectomy and a gram negative urinary tract infection. However, the patient did have underlying ( ) and elevated white count could be related to blood dyscrasia and the patient also has some rosacea on the skin facial area for which the patient recently has received steroids that may contribute to some of the elevated white count. The patient overall does not look toxic. Clinically with no other clinical focus of infection. PLAN: 1. We will keep the patient on Zosyn 3.375 grams ( ) while waiting for the culture to finalize. 2. ( ) IV fluid. 3. ( ) clinical response as well as the cultures will determine her discharge antibiotics. Thank you for this consultation. We will follow this patient along with you.
[2016-09-25 16:25] LABS: Anisocytosis Slight; Aty Lym Flag Marked; CH 29.1; CHCM 32.3; HCT 35.6 % (34.0-46.0); HGB 11.6 gm/dL (11.4-16.0); Hypochromasia Slight; MCH 29.5 pg (25.0-35.0); MCHC 32.5 g/dL (31.0-37.0); MCV 90.6 fL (80.0-100.0); Mean Platelet Volume 7.3; Poikilocytosis Slight; RBC 3.93 m/uL (3.80-5.40); RDW 17.3 % (11.5-15.5); WBC (Perox) 33.12
[2016-09-25 16:27] LABS: WBC 32.2 k/uL (3.8-10.6)
[2016-09-25 16:28] LABS: Anion Gap 12 mmol/L; Blood Urea Nitrogen 6 mg/dL (7-17); Calcium 9.5 mg/dL (8.4-10.2); Carbon Dioxide 24 mmol/L (22-30); Chloride 107 mmol/L (98-107); Glucose 107 mg/dL (74-99); Non-African American GFR(MDRD) >60 (>60 ml/min/1.73 sqM); Potassium 3.4 mmol/L (3.5-5.1); Sodium 143 mmol/L (137-145)
[2016-09-25 16:37] LABS: Add Differential Manual Differential
[2016-09-25 16:38] LABS: Nucleated Red Blood Cells 0 /100 WBC (0-0); Total Cells Counted 100
[2016-09-25 16:39] LABS: Large Platelets Present; Manual Review Performed; Polychromasia Present; Toxic Granulation Present
[2016-09-25] MEDS: predniSONE 10 MG TAB PO SCH (17:49)
[2016-09-25] MEDS: DOCUSATE 100 MG CAP PO SCH (17:49)
--- NOTE | 2016-09-25 19:35 | CONS ---
DATE OF CONSULTATION: 09/25/2016 REASON FOR CONSULTATION: Advice regarding hypokalemia and other multiple medical issues, requested by Dr. Ribeiro. HISTORY OF PRESENT ILLNESS: This 61-year-old woman with a past medical history of multiple medical problems, including history of CLL, history of COPD, GERD, GI bleed, hypertension, seizure disorder, hypothyroidism, basal cell carcinoma, being followed by Dr. Sun in the outpatient setting, underwent laparoscopic cholecystectomy by Dr. Ribeiro. The patient recently came back to [facility]. The patient also has skin lesions on the face which are related to a tick bite in an immunosuppressed patient, and with prednisone. There is no history of any fever, rigor, or chills. No history of any headache, loss of consciousness, seizures. Patient admitted for further evaluation and treatment. PAST MEDICAL HISTORY: 1. History of asthma. 2. History of COPD. 3. GERD. 4. GI bleed. 5. Hypertension. 6. Pneumonia. 7. Seizure disorder. 8. CLL. 9. Appendectomy. 10. C difficile colitis. Medications prior to admission include: 1. Colace 1 tablet p.o. daily. 2. Prednisone 10 mg daily. 3. Lisinopril hydrochlorothiazide 1 p.o. daily. 4. MS Contin 30 mg p.o. b.i.d. 5. Elavil 100 mg at bedtime. ALLERGIES: 1. KETOROLAC. 2. METOCLOPRAMIDE. 3. NSAIDS. 4. PROCHLORPERAZINE. 5. SULFA. 6. ACETAMINOPHEN. FAMILY HISTORY: History of lung cancer in the family. SOCIAL HISTORY: Previous history of smoking. No current smoking or alcohol intake. REVIEW OF SYSTEMS: ENT: No diminishing hearing. No diminished vision. CARDIOVASCULAR SYSTEM: No angina, palpitations. RESPIRATORY: As mentioned earlier. GI: As mentioned earlier. : No dysuria, retention. NERVOUS SYSTEM: No numbness or weakness. ALLERGY/IMMUNOLOGY: No asthma, hayfever. MUSCULOSKELETAL: As mentioned earlier. HEMATOLOGY/ONCOLOGY: As mentioned earlier. ENDOCRINE: As mentioned earlier. CONSTITUTIONAL: As mentioned earlier. DERMATOLOGY: Negative. RHEUMATOLOGY: Negative. PSYCHIATRY: As mentioned earlier. PHYSICAL EXAMINATION: Patient pulse 92, blood pressure 167/83, respiration 18, temperature 98.2, pulse ox 94% on room air. HEENT: Conjunctivae normal. Oral mucosa moist. NECK: No jugular venous distention. No carotid bruit. No lymph node enlargement. CARDIOVASCULAR SYSTEM: S1, S2 muffled. RESPIRATORY SYSTEM: Breath sounds diminished at the bases. Bilateral scattered rhonchi. No crackles. ABDOMEN: Soft. Status post surgery. LEGS: No edema. No swelling. NERVOUS SYSTEM: Higher functions as mentioned earlier. Moves all 4 limbs. No focal motor or sensory deficit. LYMPHATICS: No lymph node palpable in neck, axillae or groin. SKIN: Maculopapular lesions. Excoriation on the face present. Labs at this time show WBC 38.1. Otherwise, sodium 142, potassium 3. AST 69, ALT 73. ASSESSMENT: 1. Status post laparoscopic cholecystectomy for acute cholecystitis. 2. Chronic lymphocytic leukemia, B-cell type, in remission. 3. Multiple facial lesions. 4. Increased white count secondary to chronic lymphocytic leukemia. 5. Severe hypokalemia. 6. Decreased carbon dioxide. 7. Increased AST, ALT; mild hepatitis. 8. Increased alkaline phosphatase. 9. History of asthma, chronic, intermittent. 10. History of chronic obstructive pulmonary disease. 11. History of gastroesophageal reflux disease. 12. Remote history of gastrointestinal bleed. 13. History of hypertension, essential. 14. History of seizure disorder. 15. Hypothyroidism. 16. History of basal cell carcinoma. 17. History of IV gamma globulin infusions. 18. History of irritable bowel syndrome. 19. History of degenerative joint disease. 20. History of Clostridium difficile colitis. 21. Back surgery and back injections. 22. FULL CODE. RECOMMENDATIONS AND DISCUSSION: In this 61-year-old woman who presented with multiple complex medical issues, we will monitor the patient closely, continue the current medications, current symptomatic treatment. Otherwise, at this time I would recommend supplementation. See orders for further details. Otherwise, home medications if okay with Dr. Ribeiro. Incentive spirometry. Monitor blood sugars closely. Further recommendations to follow. See orders for further details. STAT and repeat labs have been ordered. I would also recommend that the patient follow with Dr. Memo Sun closely after discharge. Patient has seen Dr. Memo Sun previously. [facility]
--- NOTE | 2016-09-25 19:41 | PN ---
DATE OF SERVICE: 09/25/2016 Reason for follow-up: Leukocytosis on admission and acute cholecystitis and urinary tract infection. INTERVAL HISTORY: The patient is afebrile. He was slightly upset that he did vomit earlier this afternoon. He is still complaining of pain in the right upper quadrant area. Denies significant chest pain. No shortness of breath. Occasional cough. On examination, blood pressure 157/86 with pulse of 92, temperature 98.2, she is 95% on room air. General description is a middle-age female lying in bed in no distress. RESPIRATORY SYSTEM: Unlabored breathing. Clear to auscultation anteriorly. HEART: S1, S2 regular rate and rhythm. ABDOMEN: Soft, nontender. ( ) right upper quadrant area. LABS: Potassium of 3.3, ( ) blood culture ( ) showing Proteus mirabilis. DIAGNOSTIC IMPRESSION AND PLAN: Patient with leukocytosis, more likely multifactorial in this patient who did have component ( ) cholecystitis, ( ) status post cholecystectomy and outpatient steroid use for her skin rash. At this time, blood culture has been negative. We will repeat a CBC tomorrow. Keep the patient on Zosyn. However, ( ) switch to oral. Continue supportive care.
[2016-09-25] MEDS: MORPHINE SULFATE ER 30 MG TABLET PO SCH (20:00)
[2016-09-25] MEDS: AMITRIPTYLINE HCL 50 MG TAB PO SCH (20:01)
[2016-09-25] MEDS: PANTOPRAZOLE 40 MG/10 ML VIAL IVP SCH (20:02)
[2016-09-26 01:44] LABS: Appearance,Urine Clear (Clear); Bilirubin,Urine Negative (Negative); Glucose,Urine (UA) Negative (Negative); Ketones,Urine Negative (Negative); Leukocyte Esterase,Urine Negative (Negative); Nitrite,Urine Negative (Negative); Protein,Urine Negative (Negative); Specific Gravity,Urine 1.004 (1.001-1.035); UA Billing (MACRO vs. MICRO) CHEM; Urobilinogen,Urine <2.0 mg/dL (<2.0)
[2016-09-26] MEDS: PIPERACILLIN-TAZOBACTAM 3.375 GM in DEXTROSE/WATER 1 50ML.BAG IVPB SCH ×2 (05:21→13:40)
[2016-09-26] MEDS: MORPHINE SULFATE ER 30 MG TABLET PO SCH (08:00)
[2016-09-26] MEDS: ONDANSETRON 4 MG/2 ML VIAL IVP PRN (08:01)
--- NOTE | 2016-09-26 08:28 | P.DS ---
Providers Date of admission: 09/22/16 13:02 Expected date of discharge: 09/26/16 Attending physician: Alex Ribeiro Consults: 09/22/16 13:00 Consult Physician Stat Consulting Provider: Kvng [place] Consult Reason/Comments: Medical Management Do you want consulting provider notified?: Yes 09/24/16 08:20 Consult Physician Routine Consulting Provider: Lania Carter Consult Reason/Comments: Leukocytosis, CLL Do you want consulting provider notified?: Yes Primary care physician: Stated None Hospital Course: She was hospitalized with abdominal pain. She underwent cholecystectomy. She has a history of CLL. She has had pre-and postoperative leukocytosis as expected. She is doing quite well today. Her incisions are clean and dry. She is asking to go home. She'll be discharged home to continue her oral pain medications at home. Patient will follow-up with Dr. Mccloud in 1 week. Patient Condition at Discharge: Stable Plan - Discharge Summary New Discharge Prescriptions: No Action Amitriptyline HCl [Elavil] 100 mg PO HS predniSONE 10 mg PO DAILY Morphine Sulfate ER [Ms Contin 30Mg] 30 mg PO Q12HR Docusate [Colace] 1 tab PO DAILY Lisinopril 40 mg PO DAILY Hydrochlorothiazide 25 mg PO DAILY Discharge Medication List Amitriptyline HCl [Elavil] 100 mg PO HS 09/10/13 [History] Morphine Sulfate ER [Ms Contin 30Mg] 30 mg PO Q12HR 09/22/16 [History] predniSONE 10 mg PO DAILY 09/22/16 [History] Docusate [Colace] 1 tab PO DAILY 09/25/16 [History] Hydrochlorothiazide 25 mg PO DAILY 09/25/16 [History] Lisinopril 40 mg PO DAILY 09/25/16 [History] Follow up Appointment(s)/Referral(s): None,Stated [Primary Care Provider] - 1-2 days Luis Fernando Delgado MD [STAFF PHYSICIAN] - 10/30/16 4:45 pm Alex Ribeiro MD [STAFF PHYSICIAN] - 1 Week Activity/Diet/Wound Care/Special Instructions: Hand Trimmer placed call to Dr Memo Horn office to check if Dr Sun takes new patients and this insurance. Insurance and [place] address reviewed with office and they will accept. Patient will need to call office to make first appointment-[phone]
[2016-09-26 09:42] LABS: Anisocytosis Slight; Aty Lym Flag Marked; CH 29.1; CHCM 32.6; HCT 37.8 % (34.0-46.0); HGB 12.2 gm/dL (11.4-16.0); Hypochromasia Slight; MCH 29.1 pg (25.0-35.0); MCHC 32.4 g/dL (31.0-37.0); MCV 89.9 fL (80.0-100.0); Mean Platelet Volume 7.4; Poikilocytosis Slight; RBC 4.21 m/uL (3.80-5.40); RDW 17.3 % (11.5-15.5); WBC (Perox) 32.14
[2016-09-26 09:44] LABS: WBC 33.1 k/uL (3.8-10.6)
[2016-09-26 10:08] LABS: Anion Gap 9 mmol/L; Blood Urea Nitrogen 8 mg/dL (7-17); Calcium 9.8 mg/dL (8.4-10.2); Carbon Dioxide 22 mmol/L (22-30); Chloride 111 mmol/L (98-107); Glucose 102 mg/dL (74-99); Non-African American GFR(MDRD) >60 (>60 ml/min/1.73 sqM); Sodium 142 mmol/L (137-145)
[2016-09-26 10:12] LABS: Potassium 4.3 mmol/L (3.5-5.1)
[2016-09-26] MEDS: PANTOPRAZOLE 40 MG/10 ML VIAL IVP SCH (10:12)
[2016-09-26] MEDS: predniSONE 10 MG TAB PO SCH (10:12)
[2016-09-26] MEDS: DOCUSATE 100 MG CAP PO SCH (10:12)
[2016-09-26 10:35] LABS: Add Differential Manual Differential
[2016-09-26 10:36] LABS: Nucleated Red Blood Cells 0 /100 WBC (0-0); Polychromasia Present; Total Cells Counted 100
[2016-09-26 14:20] VITALS: BP 158/94; PULSE 100; RESP 16; TEMP 97.4
[2016-09-26] MEDS ORDERED: HEPARIN SODIUM,PORCINE 5,000 UNIT/ML 1 ML VIAL IV STA (15:31)
--- NOTE | 2016-09-26 19:17 | PN ---
DATE OF SERVICE: 09/26/2016 Reason for follow-up: 1. Leukocytosis, more likely CLS. 2. Possible urinary tract infection. INTERVAL HISTORY: The patient is afebrile. Overall she is feeling better. No further nausea, vomiting and has been tolerating her diet. No worsening right upper quadrant pain. Denies significant chest pain or shortness of breath or cough. On examination, blood pressure 158/94 with a pulse of 100, temperature 97.4, she is 95% on room air. General description is a middle-age female lying in bed in no distress. RESPIRATORY SYSTEM: Unlabored breathing. Clear to auscultation anteriorly. HEART: S1, S2. Regular rate and rhythm. ABDOMEN: Soft. Minimal tender right upper quadrant area. LABS: Hemoglobin 12.2, white count 33.1, BUN 8, creatinine 0.69. UA has been negative. Blood cultures have been negative. DIAGNOSTIC IMPRESSION AND PLAN: Patient with leukocytosis, could more likely be ( ) clinically ( ) any infectious etiology. The patient did have acute cholecystitis, status post cholecystectomy, given a short course of oral Augmentin to be on the safe side without outpatient follow-up with oncology. Continue supportive care.
--- NOTE | 2016-09-26 20:52 | PN ---
DATE OF SERVICE: 09/26/2016 This 61-year-old woman who was admitted after laparoscopic cholecystectomy is improving significantly. No chest pain. No palpitation. No fever. On exam, alert and oriented x3. Pulse is 100, blood pressure is 158/94, respirations 16, temperature 97.4, pulse ox 94% on room air. HEENT: Conjunctivae normal. NECK: No jugular venous distension. CARDIOVASCULAR: S1 and S2 muffled. RESPIRATORY: Breath sounds diminished in the bases. No rhonchi. No crackles. ABDOMEN: Soft, status post surgery. NERVOUS SYSTEM: No focal deficits. LABS: WBC 33.1. Otherwise, sodium 142. ASSESSMENT: 1. Status post laparoscopic cholecystectomy for acute cholecystitis. 2. Chronic lymphoid leukemia, B-cell type, in remission. 3. Multiple facial lesions. 4. Increased WBC secondary to chronic lymphoid leukemia. 5. Severe hyperkalemia improved. 6. Decreased CO2, improved. 7. Increased AST, ALT, mild hepatitis. 8. Increased alkaline phosphatase. 9. History of asthma; chronic, intermittent. 10. History of chronic obstructive pulmonary disease. 11. History of gastroesophageal reflux disease. 12. Remote history of gastrointestinal bleed. 13. History of hypertension, essential. 14. History of seizure disorder. 15. Hypothyroidism. 16. History of basal cell carcinoma. 17. History of IV gamma globulin infusions. 18. History of irritable bowel syndrome. 19. History of degenerative joint disease. 20. History of Clostridium difficile colitis. 21. Back surgery and back injections. 22. FULL CODE. RECOMMENDATIONS AND DISCUSSION: In this 61-year-old woman with a past medical history of multiple medical problems, at this time I recommend to continue current medications, resume the home medications, follow up with Dr. Memo Sun, who is her primary physician. Further recommendations to follow.
== END 2016-09-26 16:46 | disposition home or self-care (01) | DRG 418 ==
LOC: EC 10:34 → 6PED 13:02 → 3SUR 18:50
PROVIDERS: ADMIT Surgery; ATTEND Surgery
PROC: 0FT44ZZ Resection of Gallbladder, Percutaneous Endoscopic Approach (ICD-10-PCS; principal; 2016-09-23 08:00)
DX: K80.00 Calculus of gallbladder with acute cholecystitis without obstruction (principal); C91.11 Chronic lymphocytic leukemia of B-cell type in remission; K75.9 Inflammatory liver disease, unspecified; N39.0 Urinary tract infection, site not specified; I10 Essential (primary) hypertension; J44.9 Chronic obstructive pulmonary disease, unspecified; K21.9 Gastro-esophageal reflux disease without esophagitis; E03.9 Hypothyroidism, unspecified; E87.6 Hypokalemia; B96.89 Other specified bacterial agents as the cause of diseases classified elsewhere; K57.90 Diverticulosis of intestine, part unspecified, without perforation or abscess without bleeding; L71.9 Rosacea, unspecified; M19.91 Primary osteoarthritis, unspecified site; G40.909 Epilepsy, unspecified, not intractable, without status epilepticus; K58.9 Irritable bowel syndrome, unspecified; W57.XXXA Bitten or stung by nonvenomous insect and other nonvenomous arthropods, initial encounter; Z85.828 Personal history of other malignant neoplasm of skin; Z86.19 Personal history of other infectious and parasitic diseases; Z87.891 Personal history of nicotine dependence
CPT/HCPCS: 36415; 74000; 76705; 80048; 80053; 80306; 81001; 81003; 82150; 82784; 83605; 83690; 84132; 85025; 87040; 87077; 87086; 87186; 88304

== ENCOUNTER 2016-09-28 11:05 | Emergency (ER) | payer MEDICARE ==
[2016-09-28] MEDS ORDERED: MORPHINE SULFATE 4 MG/ML SYRINGE IV STA (12:27)
[2016-09-28] MEDS ORDERED: SODIUM CHLORIDE 0.9% 1,000 ML IV STA ×2 (12:27)
[2016-09-28] MEDS ORDERED: ONDANSETRON 4 MG/2 ML VIAL IVP STA (12:27)
[2016-09-28] MEDS ORDERED: PANTOPRAZOLE 40 MG/10 ML VIAL IVP STA (12:27)
[2016-09-28] MEDS ORDERED: RX INFO: IV CONTRAST WAS GIVEN 1 EACH MISC MISCELLANE PRN (12:27)
--- NOTE | 2016-09-28 13:07 | ED ---
General Adult HPI - General Chief complaint: Abdominal Pain Stated complaint: Abd Pain, vomiting Time Seen by Provider: 09/28/16 12:27 Source: patient, RN notes reviewed, old records reviewed Mode of arrival: wheelchair Limitations: no limitations - History of Present Illness Initial comments: This is a 61-year-old female here for evaluation of bowel pain, patient's abdominal pain appears to be right lower quadrant. No radiation. Patient has no fevers, no diarrhea. Patient is complaining of abdominal pain. No rashes. Patient's had surgery about a week and a half ago. Since then she's had decreased appetite and decreased bowel movements. She states however she doesn' t she is severely nauseous. Denies any chest pain or shortness of breath. Denies any dysuria - Related Data Home Medications Medication Instructions Recorded Confirmed Amitriptyline HCl [Elavil] 100 mg PO HS 09/10/13 09/28/16 Morphine Sulfate ER [Ms Contin 30 mg PO Q12HR 09/22/16 09/28/16 30Mg] predniSONE 10 mg PO DAILY 09/22/16 09/28/16 Docusate [Colace] 1 tab PO DAILY 09/25/16 09/28/16 Hydrochlorothiazide 25 mg PO DAILY 09/25/16 09/28/16 Lisinopril 40 mg PO DAILY 09/25/16 09/28/16 Previous Rx's Medication Instructions Recorded Amoxicillin/Potassium Clav 1 tab PO Q12HR #14 tab 09/26/16 [Augmentin 875-125 Tablet] Ondansetron [Zofran] 4 mg PO Q8HR PRN #20 tab 09/26/16 oxyCODONE HCL/ACETAMINOPHEN 1 tab PO Q6HR PRN #30 tab 09/26/16 [Percocet 7.5-325 mg] Allergies Allergy/AdvReac Type Severity Reaction Status Date / Time ketorolac tromethamine Allergy Anaphylaxis Verified 09/28/16 12:46 [From Toradol] metoclopramide HCl Allergy Anaphylaxis Verified 09/28/16 12:46 [From Reglan] NSAIDS (Non-Steroidal Allergy Nausea & Verified 09/28/16 12:46 Anti-Inflamma Vomiting prochlorperazine edisylate Allergy Anaphylaxis Verified 09/28/16 12:46 [From Compazine] prochlorperazine maleate Allergy Anaphylaxis Verified 09/28/16 12:46 [From Compazine] Sulfa (Sulfonamide Allergy Rash/Hives Verified 09/28/16 12:46 Antibiotics) acetaminophen [From Tylenol] AdvReac Unknown Verified 09/28/16 12:46 Review of Systems ROS Statement: Those systems with pertinent positive or pertinent negative responses have been documented in the HPI. ROS Other: All systems not noted in ROS Statement are negative. Past Medical History Past Medical History: Asthma, Blood Disorder, Cancer, COPD, GERD/Reflux, GI Bleed, Hypertension, Pneumonia, Seizure Disorder, Thyroid Disorder Additional Past Medical History / Comment(s): CLL, basal cell carcinoma, pt states she does not make gamma globulin and normally gets gammaglobulin infusions monthy but has not been received an infusion in 2 months, anemia, rectal bleed, diverticular dx, colitis, IBS, chronic back pain and R sided sciatica, pt states she has seizures and last seizure was few weeks ago, bilateral tinnitis, migraines, UTIs, thyroid problem in past, miguel mountain spotted fever, . History of Any Multi-Drug Resistant Organisms: C-DIFF Date of last positivie culture/infection: OCTOBER 2013 MDRO Source:: STOOL Past Surgical History: Appendectomy, Back Surgery, Section, Cholecystectomy, Hysterectomy, Orthopedic Surgery, Tonsillectomy Additional Past Surgical History / Comment(s): Recent low back injections, past 4 low back surgery, cervical surgery, removal of basal cell carcinoma from the face, PICC lines since removed, R sided infusaport, BMAs with biopsy, R breast benign lumpectomy, D&C, EGD/colonoscopy Past Anesthesia/Blood Transfusion Reactions: No Reported Reaction Additional Past Anesthesia/Blood Transfusion Reaction / Comment(s): Pt received blood in 2008 without reaction. Past Psychological History: No Psychological Hx Reported Additional Psychological History / Comment(s): Pt resides with her spouse in their RV. They are back in [place] for the summer. Pt is independent. They have a dog. Smoking Status: Former smoker Past Alcohol Use History: None Reported Additional Past Alcohol Use History / Comment(s): Patient is and lives in the family RV with her . They've been traveling cross country for the last [address] [facility], [place], [place], [place] and [place] as well as [place]. No significant international travel. They have had a pet cat that recently from tickborne disease. They do have a dog at this time. She does have a history of tobacco smoking for 5 years and quit in 1979. Patient denies any medical marijuana, marijuana, street drug use or alcohol use. Patient her have been traveling in an RV for the past 6 years after their son was murdered in a home invasion. Past Drug Use History: None Reported - Past Family History Mother Family Medical History: Coronary Artery Disease (CAD) Father Family Medical History: Cancer Additional Family Medical History / Comment(s): father lung cancer General Exam Limitations: no limitations General appearance: alert, in no apparent distress Head exam: Present: atraumatic, normocephalic, normal inspection Eye exam: Present: normal appearance, PERRL, EOMI. Absent: scleral icterus, conjunctival injection, periorbital swelling ENT exam: Present: normal exam, mucous membranes moist Neck exam: Present: normal inspection. Absent: tenderness, meningismus, lymphadenopathy Respiratory exam: Present: normal lung sounds bilaterally. Absent: respiratory distress, wheezes, rales, rhonchi, stridor Cardiovascular Exam: Present: regular rate, normal rhythm, normal heart sounds. Absent: systolic murmur, diastolic murmur, rubs, gallop, clicks GI/Abdominal exam: Present: soft, normal bowel sounds. Absent: distended, tenderness, guarding, rebound, rigid Extremities exam: Present: normal inspection, full ROM, normal capillary refill. Absent: tenderness, pedal edema, joint swelling, calf tenderness Back exam: Present: normal inspection Neurological exam: Present: alert, oriented X3, CN II-XII intact Psychiatric exam: Present: normal affect, normal mood Skin exam: Present: warm, dry, intact, normal color. Absent: rash Course Vital Signs 09/28/16 11:18 Temperature 98.1 F Pulse Rate 94 Respiratory 20 Rate Blood Pressure 112/60 O2 Sat by Pulse 98 Oximetry - Reevaluation(s) Reevaluation #1: 09/28/16 14:01 Medical surgical history is reviewed, white count increased from 33-40 Reevaluation #2: 09/28/16 14:[address] Cole will see patient in his office tomorrow Medical Decision Making - Medical Decision Making 61 female here for evaluation of bowel pain. Spoke with , we'll continue antiemetics liquid diet and patient to be seen in his office tomorrow. CT is negative for acute disease, lab work is normal urine is negative - Lab Data Result diagrams: 09/28/16 12:45 09/28/16 12:45 Lab Results 09/28/16 09/28/16 09/28/16 Range/Units 12:45 12:45 12:45 WBC 40.7 H* (3.8-10.6) k/uL RBC 4.19 (3.80-5.40) m/uL Hgb 12.2 (11.4-16.0) gm/dL Hct 37.7 (34.0-46.0) % MCV 89.9 (80.0-100.0) fL MCH 29.1 (25.0-35.0) pg MCHC 32.4 (31.0-37.0) g/dL RDW 17.4 H (11.5-15.5) % Plt Count 241 (150-450) k/uL Neutrophils % (Manual) 22.5 % Band Neutrophils % 0.5 % Lymphocytes % (Manual) 67.0 % Monocytes % (Manual) 8.5 % Eosinophils % (Manual) 1.5 % Neutrophils # (Manual) 9.4 H (1.3-7.7) k/uL Lymphocytes # (Manual) 27.3 H (1.0-4.8) k/uL Monocytes # (Manual) 3.5 H (0-1.0) k/uL Eosinophils # (Manual) 0.6 (0-0.7) k/uL Nucleated RBCs 0 (0-0) /100 WBC Manual Slide Review Performed Hypochromasia Slight Poikilocytosis Slight Anisocytosis Slight Sodium 139 (137-145) mmol/L Potassium 3.9 (3.5-5.1) mmol/L Chloride 105 (98-107) mmol/L Carbon Dioxide 22 (22-30) mmol/L Anion Gap 12 mmol/L BUN 15 (7-17) mg/dL Creatinine 0.80 (0.52-1.04) mg/dL Est GFR (MDRD) Af Amer >60 (>60 ml/min/1.73 sqM) Est GFR (MDRD) Non-Af >60 (>60 ml/min/1.73 sqM) Glucose 107 H (74-99) mg/dL Plasma Lactic Acid Eddie 1.5 (0.7-2.0) mmol/L Calcium 9.5 (8.4-10.2) mg/dL Total Bilirubin 0.6 (0.2-1.3) mg/dL AST 61 H (14-36) U/L ALT 69 H (9-52) U/L Alkaline Phosphatase 132 H (38-126) U/L Total Protein 7.2 (6.3-8.2) g/dL Albumin 4.0 (3.5-5.0) g/dL Amylase 32 (30-110) U/L Lipase 64 (23-300) U/L Urine Color Urine Appearance (Clear) Urine pH (5.0-8.0) Ur Specific [place] (1.001-1.035) Urine Protein (Negative) Urine Glucose (UA) (Negative) Urine Ketones (Negative) Urine Blood (Negative) Urine Nitrite (Negative) Urine Bilirubin (Negative) Urine Urobilinogen (<2.0) mg/dL Ur Leukocyte Esterase (Negative) Urine RBC (0-5) /hpf Urine WBC (0-5) /hpf Ur Squamous Epith Cells (0-4) /hpf Urine Bacteria (None) /hpf Hyaline Casts (0-2) /lpf Urine Mucus (None) /hpf 09/28/16 Range/Units 12:45 WBC (3.8-10.6) k/uL RBC (3.80-5.40) m/uL Hgb (11.4-16.0) gm/dL Hct (34.0-46.0) % MCV (80.0-100.0) fL MCH (25.0-35.0) pg MCHC (31.0-37.0) g/dL RDW (11.5-15.5) % Plt Count (150-450) k/uL Neutrophils % (Manual) % Band Neutrophils % % Lymphocytes % (Manual) % Monocytes % (Manual) % Eosinophils % (Manual) % Neutrophils # (Manual) (1.3-7.7) k/uL Lymphocytes # (Manual) (1.0-4.8) k/uL Monocytes # (Manual) (0-1.0) k/uL Eosinophils # (Manual) (0-0.7) k/uL Nucleated RBCs (0-0) /100 WBC Manual Slide Review Hypochromasia Poikilocytosis Anisocytosis Sodium (137-145) mmol/L Potassium (3.5-5.1) mmol/L Chloride (98-107) mmol/L Carbon Dioxide (22-30) mmol/L Anion Gap mmol/L BUN (7-17) mg/dL Creatinine (0.52-1.04) mg/dL Est GFR (MDRD) Af Amer (>60 ml/min/1.73 sqM) Est GFR (MDRD) Non-Af (>60 ml/min/1.73 sqM) Glucose (74-99) mg/dL Plasma Lactic Acid Eddie (0.7-2.0) mmol/L Calcium (8.4-10.2) mg/dL Total Bilirubin (0.2-1.3) mg/dL AST (14-36) U/L ALT (9-52) U/L Alkaline Phosphatase (38-126) U/L Total Protein (6.3-8.2) g/dL Albumin (3.5-5.0) g/dL Amylase (30-110) U/L Lipase (23-300) U/L Urine Color Yellow Urine Appearance Clear (Clear) Urine pH 6.0 (5.0-8.0) Ur Specific [place] 1.023 (1.001-1.035) Urine Protein Trace H (Negative) Urine Glucose (UA) Negative (Negative) Urine Ketones Negative (Negative) Urine Blood Negative (Negative) Urine Nitrite Negative (Negative) Urine Bilirubin Negative (Negative) Urine Urobilinogen 2.0 (<2.0) mg/dL Ur Leukocyte Esterase Small H (Negative) Urine RBC 3 (0-5) /hpf Urine WBC 3 (0-5) /hpf Ur Squamous Epith Cells 1 (0-4) /hpf Urine Bacteria Rare H (None) /hpf Hyaline Casts 27 H (0-2) /lpf Urine Mucus Rare H (None) /hpf Disposition Clinical Impression: Abdominal pain, Nausea and vomiting Disposition: HOME SELF-CARE Condition: Good Instructions: Acute Nausea and Vomiting (ED) Referrals: Memo Sun MD [Primary Care Provider] - 1-2 days
[2016-09-28 13:11] LABS: Appearance,Urine Clear (Clear); Bacteria,Urine Rare /hpf; Bilirubin,Urine Negative (Negative); Glucose,Urine (UA) Negative (Negative); Ketones,Urine Negative (Negative); Leukocyte Esterase,Urine Small (Negative); Mucus,Urine Rare /hpf; Nitrite,Urine Negative (Negative); Particle Count 4492; Protein,Urine Trace (Negative); RBC,Urine 3 /hpf (0-5); Specific Gravity,Urine 1.023 (1.001-1.035); Squamous Epithelial Cell,Urine 1 /hpf (0-4); UA Billing (MACRO vs. MICRO) MICRO; WBC,Urine 3 /hpf (0-5)
[2016-09-28 13:16] LABS: Anisocytosis Slight; Aty Lym Flag Marked; CH 29.2; CHCM 32.7; HCT 37.7 % (34.0-46.0); HDW 3.54; HGB 12.2 gm/dL (11.4-16.0); Hypochromasia Slight; MCH 29.1 pg (25.0-35.0); MCHC 32.4 g/dL (31.0-37.0); MCV 89.9 fL (80.0-100.0); Mean Platelet Volume 7.9; Poikilocytosis Slight; RBC 4.19 m/uL (3.80-5.40); RDW 17.4 % (11.5-15.5); WBC (Perox) 42.12
[2016-09-28 13:21] LABS: ALT 69 U/L (9-52); AST 61 U/L (14-36); Alkaline Phosphatase 132 U/L (38-126); Amylase 32 U/L (30-110); Anion Gap 12 mmol/L; Blood Urea Nitrogen 15 mg/dL (7-17); Calcium 9.5 mg/dL (8.4-10.2); Carbon Dioxide 22 mmol/L (22-30); Chloride 105 mmol/L (98-107); Glucose 107 mg/dL (74-99); Non-African American GFR(MDRD) >60 (>60 ml/min/1.73 sqM); Potassium 3.9 mmol/L (3.5-5.1); Sodium 139 mmol/L (137-145); Total Bilirubin 0.6 mg/dL (0.2-1.3); Total Protein 7.2 g/dL (6.3-8.2); WBC 40.7 k/uL (3.8-10.6)
[2016-09-28 13:42] LABS: Add Differential Manual Differential
[2016-09-28 13:45] LABS: Band Neutrophils % 0.5 %; Manual Review Performed; Nucleated Red Blood Cells 0 /100 WBC (0-0); Total Cells Counted 200
--- NOTE | 2016-09-28 13:53 | CT ---
EXAMINATION TYPE: CT abdomen pelvis w con DATE OF EXAM: 09/28/2016 COMPARISON: 11/03/2013 INDICATION: Pain, constipation, nausea and vomiting post GB surgery last week DLP: 1355.4 mGycm, Automated exposure control for dose reduction was used. CONTRAST: 100 mL of Omnipaque 300. Study performed without Oral Contrast TECHNIQUE: Axial images were obtained from above the diaphragm to the pubic rami in the axial plane a t 5 mm thick sections. Reconstructed images are reviewed on the computer in the coronal plane. FINDINGS: Limited CT sections are obtained the lung bases. There is some minimal compressive atelectasis withi n the dependent portions of the lung bases.. CT ABDOMEN: Liver: Normal Spleen: Normal Pancreas: There is fatty infiltration of the pancreas. Adrenal glands: The adrenal glands are normal. Gallbladder: There is been a cholecystectomy. Kidneys: No masses are evident. No hydronephrosis is present. A 0.8 cm mid posterior right renal co rtical cyst is present. Delayed images were obtained through the kidneys, which remain unremarkable. Aorta: Normal Inferior vena cava: Normal. CT PELVIS: Loops of bowel within the abdomen and pelvis are normal. There are loops of bowel which are incom pletely distended or lack oral contrast limiting their evaluation. Appendix: Surgically absent Urinary bladder: Decompressed, somewhat limited evaluation. Genitourinary structures: Uterus and ovaries are not identified. Osseous structures: There is diffuse osseous sclerosis throughout the osseous structures suspicious f or metastatic disease. Degenerative changes are at sacroiliac joints. Postsurgical changes are within the lumbar spine. IMPRESSIONS: 1. Diffuse osseous metastasis. Clinical correlation is recommended.
[2016-09-28] MEDS ORDERED: TRIMETHOBENZAMIDE 100 MG/ML 2 ML VIAL IM STA (14:45)
[2016-09-28 15:06] VITALS: BP 151/99; PULSE 97; RESP 18; TEMP 98.2
== END 2016-09-28 15:04 | disposition home or self-care (01) ==
LOC: EC 11:05
DX: R10.31 Right lower quadrant pain (principal); R11.2 Nausea with vomiting, unspecified; I10 Essential (primary) hypertension; Z87.891 Personal history of nicotine dependence; Z85.828 Personal history of other malignant neoplasm of skin; Z90.49 Acquired absence of other specified parts of digestive tract; Z79.891 Long term (current) use of opiate analgesic; Z79.899 Other long term (current) drug therapy; Z88.2 Allergy status to sulfonamides; Z88.6 Allergy status to analgesic agent; Z88.8 Allergy status to other drugs, medicaments and biological substances
CPT/HCPCS: 36415; 80053; 82150; 83605; 83690; 85025; 81001; 87086; 74177; 99284; 96374; 96375 ×2; 96361 ×2; 96372; J2270; J3250; J2405; Q9967; C9113

== ENCOUNTER 2016-10-16 12:23 | Inpatient (IN) | payer MEDICARE ==
[2016-10-16] MEDS ORDERED: SODIUM CHLORIDE 0.9% 1,000 ML IV STA (12:44)
[2016-10-16] MEDS ORDERED: RX INFO: IV CONTRAST WAS GIVEN 1 EACH MISC MISCELLANE PRN (12:44)
[2016-10-16] MEDS ORDERED: PANTOPRAZOLE 40 MG/10 ML VIAL IVP STA (12:44)
[2016-10-16] MEDS ORDERED: HYDROmorphone 1 MG/ML 1 ML SYRINGE IVP STA ×2 (12:45→15:09)
[2016-10-16] MEDS ORDERED: ONDANSETRON 4 MG/2 ML VIAL IVP STA (12:46)
--- NOTE | 2016-10-16 12:48 | ED ---
General Adult HPI - General Chief complaint: Abdominal Pain Stated complaint: Abd Pain Time Seen by Provider: 10/16/16 12:34 Source: patient, family, RN notes reviewed Mode of arrival: wheelchair Limitations: no limitations - History of Present Illness Initial comments: Patient is a pleasant 62-year-old female presenting to the emergency Department with epigastric pain. Onset was last night. Discomfort is mostly in the epigastric region however somewhat through the lower abdomen as well. No vomiting. No diarrhea. Patient has had some dark stools however. Patient did have a cystectomy done laparoscopically 2 weeks ago. Patient has been doing well prior to last night. No fevers. No chest pain abdominal discomfort is intermittent. - Related Data Home Medications Medication Instructions Recorded Confirmed Amitriptyline HCl [Elavil] 100 mg PO HS 09/10/13 10/16/16 Lisinopril-Hctz 20-25 mg 1 tab PO DAILY 10/16/16 10/16/16 [Zestoretic 20-25] Allergies Allergy/AdvReac Type Severity Reaction Status Date / Time ketorolac tromethamine Allergy Anaphylaxis Verified 10/16/16 13:32 [From Toradol] metoclopramide HCl Allergy Anaphylaxis Verified 10/16/16 13:32 [From Reglan] NSAIDS (Non-Steroidal Allergy Nausea & Verified 10/16/16 13:32 Anti-Inflamma Vomiting prochlorperazine edisylate Allergy Anaphylaxis Verified 10/16/16 13:32 [From Compazine] prochlorperazine maleate Allergy Anaphylaxis Verified 10/16/16 13:32 [From Compazine] Sulfa (Sulfonamide Allergy Rash/Hives Verified 10/16/16 13:32 Antibiotics) acetaminophen [From Tylenol] AdvReac Unknown Verified 10/16/16 13:32 Review of Systems ROS Statement: Those systems with pertinent positive or pertinent negative responses have been documented in the HPI. ROS Other: All systems not noted in ROS Statement are negative. Constitutional: Denies: fever Eyes: Denies: eye pain ENT: Denies: ear pain Respiratory: Denies: cough, dyspnea Cardiovascular: Denies: chest pain Endocrine: Denies: fatigue Gastrointestinal: Reports: abdominal pain Genitourinary: Denies: dysuria Musculoskeletal: Denies: back pain Skin: Denies: rash Neurological: Denies: weakness Past Medical History Past Medical History: Asthma, Blood Disorder, Cancer, COPD, GERD/Reflux, GI Bleed, Hypertension, Pneumonia, Seizure Disorder, Thyroid Disorder Additional Past Medical History / Comment(s): CLL, basal cell carcinoma, pt states she does not make gamma globulin and normally gets gammaglobulin infusions monthy but has not been received an infusion in 2 months, anemia, rectal bleed, diverticular dx, colitis, IBS, chronic back pain and R sided sciatica, pt states she has seizures and last seizure was few weeks ago, bilateral tinnitis, migraines, UTIs, thyroid problem in past, miguel mountain spotted fever, . History of Any Multi-Drug Resistant Organisms: C-DIFF Date of last positivie culture/infection: OCTOBER 2013 MDRO Source:: STOOL Past Surgical History: Appendectomy, Back Surgery, Section, Cholecystectomy, Hysterectomy, Orthopedic Surgery, Tonsillectomy Additional Past Surgical History / Comment(s): Recent low back injections, past 4 low back surgery, cervical surgery, removal of basal cell carcinoma from the face, PICC lines since removed, R sided infusaport, BMAs with biopsy, R breast benign lumpectomy, D&C, EGD/colonoscopy Past Anesthesia/Blood Transfusion Reactions: No Reported Reaction Additional Past Anesthesia/Blood Transfusion Reaction / Comment(s): Pt received blood in 2008 without reaction. Past Psychological History: No Psychological Hx Reported Smoking Status: Former smoker Past Alcohol Use History: None Reported Past Drug Use History: None Reported - Past Family History Mother Family Medical History: Coronary Artery Disease (CAD) Father Family Medical History: Cancer Additional Family Medical History / Comment(s): father lung cancer General Exam Limitations: no limitations General appearance: alert, in no apparent distress Head exam: Present: atraumatic Eye exam: Present: normal appearance, PERRL ENT exam: Present: normal oropharynx Neck exam: Present: normal inspection Respiratory exam: Present: normal lung sounds bilaterally Cardiovascular Exam: Present: regular rate, normal rhythm Expanded Peripheral pulses: 2+: Dorsalis Pedis (R), Dorsalis Pedis (L) GI/Abdominal exam: Present: soft, tenderness (Moderate epigastric tenderness to palpation, mild diffuse tenderness), normal bowel sounds. Absent: distended, guarding, rebound, rigid, pulsatile mass Extremities exam: Present: normal inspection. Absent: pedal edema, calf tenderness Neurological exam: Present: alert Psychiatric exam: Present: normal affect, normal mood Skin exam: Present: normal color Course Vital Signs 10/16/16 10/16/16 10/16/16 12:26 13:51 15:04 Temperature 98.1 F Pulse Rate 99 79 85 Respiratory 16 18 16 Rate Blood Pressure 142/98 147/88 160/88 O2 Sat by Pulse 97 99 99 Oximetry EKG Findings - EKG Comments: EKG Findings:: Normal sinus rhythm 84. [place] 146. QRS 98. QT 388. QTC 458. Normal axis. Normal QRS. Normal ST-T. Medical Decision Making - Medical Decision Making Patient reexamined and still and discomfort. Case discussed with Dr. Mireles who does recommend medical admission. Case discussed with Dr. [place], who will admit for Dr. Sun. Case also discussed with Dr. Wilson for ERCP. Dr. Delgado will be placed on consult for patient's CLL. - Lab Data Result diagrams: 10/16/16 13:25 10/16/16 13:25 Lab Results 10/16/16 10/16/16 10/16/16 Range/Units 13:25 13:25 13:25 WBC 37.6 H* (3.8-10.6) k/uL RBC 3.70 L (3.80-5.40) m/uL Hgb 11.0 L (11.4-16.0) gm/dL Hct 33.6 L (34.0-46.0) % MCV 91.0 (80.0-100.0) fL MCH 29.8 (25.0-35.0) pg MCHC 32.8 (31.0-37.0) g/dL RDW 17.5 H (11.5-15.5) % Plt Count 198 (150-450) k/uL Neutrophils % (Manual) 27.0 % Lymphocytes % (Manual) 67.5 % Monocytes % (Manual) 4.5 % Eosinophils % (Manual) 1.0 % Neutrophils # (Manual) 10.2 H (1.3-7.7) k/uL Lymphocytes # (Manual) 25.4 H (1.0-4.8) k/uL Monocytes # (Manual) 1.7 H (0-1.0) k/uL Eosinophils # (Manual) 0.4 (0-0.7) k/uL Nucleated RBCs 0 (0-0) /100 WBC Manual Slide Review Performed Polychromasia Present Hypochromasia Slight Anisocytosis Slight PT (9.0-12.0) sec INR (<1.1) APTT (22.0-30.0) sec Sodium 140 (137-145) mmol/L Potassium 3.5 (3.5-5.1) mmol/L Chloride 106 (98-107) mmol/L Carbon Dioxide 24 (22-30) mmol/L Anion Gap 10 mmol/L BUN 11 (7-17) mg/dL Creatinine 0.66 (0.52-1.04) mg/dL Est GFR (MDRD) Af Amer >60 (>60 ml/min/1.73 sqM) Est GFR (MDRD) Non-Af >60 (>60 ml/min/1.73 sqM) Glucose 86 (74-99) mg/dL Calcium 9.1 (8.4-10.2) mg/dL Total Bilirubin 0.5 (0.2-1.3) mg/dL AST 61 H (14-36) U/L ALT 55 H (9-52) U/L Alkaline Phosphatase 146 H (38-126) U/L Total Creatine Kinase 21 L (30-135) U/L CK-MB (CK-2) 0.4 (0.0-2.4) ng/mL CK-MB (CK-2) Rel Index 1.9 Troponin I <0.012 (0.000-0.034) ng/mL Total Protein 6.3 (6.3-8.2) g/dL Albumin 3.7 (3.5-5.0) g/dL Amylase 38 (30-110) U/L Lipase 161 (23-300) U/L Urine Color Urine Appearance (Clear) Urine pH (5.0-8.0) Ur Specific [place] (1.001-1.035) Urine Protein (Negative) Urine Glucose (UA) (Negative) Urine Ketones (Negative) Urine Blood (Negative) Urine Nitrite (Negative) Urine Bilirubin (Negative) Urine Urobilinogen (<2.0) mg/dL Ur Leukocyte Esterase (Negative) Stool Occult Blood (Negative) 10/16/16 10/16/16 10/16/16 Range/Units 13:25 13:25 13:25 WBC (3.8-10.6) k/uL RBC (3.80-5.40) m/uL Hgb (11.4-16.0) gm/dL Hct (34.0-46.0) % MCV (80.0-100.0) fL MCH (25.0-35.0) pg MCHC (31.0-37.0) g/dL RDW (11.5-15.5) % Plt Count (150-450) k/uL Neutrophils % (Manual) % Lymphocytes % (Manual) % Monocytes % (Manual) % Eosinophils % (Manual) % Neutrophils # (Manual) (1.3-7.7) k/uL Lymphocytes # (Manual) (1.0-4.8) k/uL Monocytes # (Manual) (0-1.0) k/uL Eosinophils # (Manual) (0-0.7) k/uL Nucleated RBCs (0-0) /100 WBC Manual Slide Review Polychromasia Hypochromasia Anisocytosis PT 9.4 (9.0-12.0) sec INR 0.9 (<1.1) APTT 21.5 L (22.0-30.0) sec Sodium (137-145) mmol/L Potassium (3.5-5.1) mmol/L Chloride (98-107) mmol/L Carbon Dioxide (22-30) mmol/L Anion Gap mmol/L BUN (7-17) mg/dL Creatinine (0.52-1.04) mg/dL Est GFR (MDRD) Af Amer (>60 ml/min/1.73 sqM) Est GFR (MDRD) Non-Af (>60 ml/min/1.73 sqM) Glucose (74-99) mg/dL Calcium (8.4-10.2) mg/dL Total Bilirubin (0.2-1.3) mg/dL AST (14-36) U/L ALT (9-52) U/L Alkaline Phosphatase (38-126) U/L Total Creatine Kinase (30-135) U/L CK-MB (CK-2) (0.0-2.4) ng/mL CK-MB (CK-2) Rel Index Troponin I (0.000-0.034) ng/mL Total Protein (6.3-8.2) g/dL Albumin (3.5-5.0) g/dL Amylase (30-110) U/L Lipase (23-300) U/L Urine Color Yellow Urine Appearance Clear (Clear) Urine pH 7.0 (5.0-8.0) Ur Specific [place] 1.011 (1.001-1.035) Urine Protein Negative (Negative) Urine Glucose (UA) Negative (Negative) Urine Ketones Negative (Negative) Urine Blood Negative (Negative) Urine Nitrite Negative (Negative) Urine Bilirubin Negative (Negative) Urine Urobilinogen <2.0 (<2.0) mg/dL Ur Leukocyte Esterase Negative (Negative) Stool Occult Blood Negative (Negative) - Radiology Data Radiology results: image reviewed (Computed tomography scan of the abdomen and pelvis shows concerns for possible calcification in the common bile duct. Sclerotic lesions in the pelvis and lumbar and sacrum.) Disposition Clinical Impression: Bile duct obstruction Disposition: ADMITTED IP TO THIS [facility] Condition: Serious Referrals: Memo Sun MD [Primary Care Provider] - 1-2 days
[2016-10-16 13:44] LABS: Anisocytosis Slight; Aty Lym Flag Marked; HCT 33.6 % (34.0-46.0); HDW 3.15; Hypochromasia Slight; MCH 29.8 pg (25.0-35.0); MCHC 32.8 g/dL (31.0-37.0); Mean Platelet Volume 7.6; RDW 17.5 % (11.5-15.5); WBC (Perox) 37.03
[2016-10-16 13:47] LABS: Appearance,Urine Clear (Clear); Bilirubin,Urine Negative (Negative); Glucose,Urine (UA) Negative (Negative); Ketones,Urine Negative (Negative); Leukocyte Esterase,Urine Negative (Negative); Nitrite,Urine Negative (Negative); Protein,Urine Negative (Negative); Specific Gravity,Urine 1.011 (1.001-1.035); UA Billing (MACRO vs. MICRO) CHEM; Urobilinogen,Urine <2.0 mg/dL (<2.0)
[2016-10-16 13:49] LABS: WBC 37.6 k/uL (3.8-10.6)
[2016-10-16 13:55] LABS: Add Differential Manual Differential
[2016-10-16 13:57] LABS: ALT 55 U/L (9-52); AST 61 U/L (14-36); Alkaline Phosphatase 146 U/L (38-126); Amylase 38 U/L (30-110); Anion Gap 10 mmol/L; Blood Urea Nitrogen 11 mg/dL (7-17); Calcium 9.1 mg/dL (8.4-10.2); Carbon Dioxide 24 mmol/L (22-30); Chloride 106 mmol/L (98-107); Glucose 86 mg/dL (74-99); Non-African American GFR(MDRD) >60 (>60 ml/min/1.73 sqM); Potassium 3.5 mmol/L (3.5-5.1); Sodium 140 mmol/L (137-145); Total Bilirubin 0.5 mg/dL (0.2-1.3); Total Protein 6.3 g/dL (6.3-8.2)
[2016-10-16 13:58] LABS: INR 0.9 (<1.1); Manual Review Performed; Nucleated Red Blood Cells 0 /100 WBC (0-0); Prothrombin Time 9.4 sec (9.0-12.0); Total Cells Counted 200
[2016-10-16 13:59] LABS: Polychromasia Present
[2016-10-16 14:02] LABS: Creatine Kinase 21 U/L (30-135)
[2016-10-16 14:05] LABS: Partial Thromboplastin Time 21.5 sec (22.0-30.0)
[2016-10-16 14:15] LABS: Creatine Kinase MB 0.4 ng/mL (0.0-2.4); Troponin I <0.012 ng/mL (0.000-0.034)
--- NOTE | 2016-10-16 14:39 | CT ---
EXAMINATION TYPE: CT abdomen pelvis w con DATE OF EXAM: 10/16/2016 COMPARISON: NONE INDICATION: Abdominal pain DLP: 1543.40 mGycm, Automated exposure control for dose reduction was used. CONTRAST: 100 ml mL of Omnipaque 300. Study performed without Oral Contrast TECHNIQUE: Axial images were obtained from above the diaphragm to the pubic rami in the axial plane a t 5 mm thick sections. Reconstructed images are reviewed on the computer in the coronal plane. FINDINGS: Limited CT sections are obtained the lung bases. Some minimal subsegmental atelectasis is likely pre sent along the left diaphragm.. Coronary artery calcification is present. CT ABDOMEN: Liver: Normal Spleen: Normal Pancreas: Fatty infiltrated Adrenal glands: The adrenal glands are normal. Gallbladder: A 0.5 cm calcification is near the expected region of the neck of the gallbladder. By hi story the gallbladder is surgically absent, Correlate with patient's surgical history. A duct stone may be present. Kidneys: No masses are evident. No hydronephrosis is present. There is a 1.0 cm cyst on the posteri or mid right kidney. Delayed images were obtained through the kidneys, which remain unremarkable. Aorta: Vascular calcification is within the aorta. Inferior vena cava: Normal. CT PELVIS: Postsurgical bowel changes are in the right lower quadrant. Diverticular changes are within the sigmo id colon. No acute diverticulitis is evident. Studies without oral contrast limiting their evaluation . Appendix: Surgically absent Urinary bladder: Normal. Genitourinary structures: Uterus and ovaries are not identified. Osseous structures: Postsurgical changes are within the lumbar spine. Laminectomies have been perform ed. There is diffuse osseous changes throughout the pelvis including the symphysis pubis iliac wings, the sacrum, and multiple vertebral levels. Some proximal femoral changes may be present. Findings ar e compatible with multiple metastatic lesions. IMPRESSIONS: 1. Extensive sclerotic metastasis. 2. Common bile duct calcification may be present measuring 0.5 cm. 3. Diverticulosis without acute diverticulitis. 4. Right renal cyst.
[2016-10-16] MEDS ORDERED: NALOXONE 0.4 MG/ML 1 ML VIAL IV PRN (16:29)
[2016-10-16] MEDS: SODIUM CHLORIDE 0.9% 1,000 ML IV SCH (17:08)
--- NOTE | 2016-10-16 17:28 | P.GSCN ---
History of Present Illness Consult date: 10/16/16 Reason for Consult: Abdominal pain History of present illness: This a 61-year-old female who was admitted through the emergency room with complete abdominal pain. Patient states that he had she has severe crampy at the epigastric abdominal pain. The patient underwent laparoscopic cholecystectomy proximal 2 weeks ago. Patient to CAT scan which is suggestive of a retained common bile duct stone. The patient has a history of CLL. Her white count is chronically elevated in the 25-35 range. Past Medical History Past Medical History: Asthma, Blood Disorder, Cancer, COPD, GERD/Reflux, GI Bleed, Hypertension, Pneumonia, Seizure Disorder, Thyroid Disorder Additional Past Medical History / Comment(s): CLL, basal cell carcinoma, pt states she does not make gamma globulin and normally gets gammaglobulin infusions monthy but has not been received an infusion in 2 months, anemia, rectal bleed, diverticular dx, colitis, IBS, chronic back pain and R sided sciatica, pt states she has seizures and last seizure was few weeks ago, bilateral tinnitis, migraines, UTIs, thyroid problem in past, miguel mountain spotted fever, . History of Any Multi-Drug Resistant Organisms: C-DIFF Year Discovered:: OCTOBER 2013 MDRO Source:: STOOL Past Surgical History: Appendectomy, Back Surgery, Section, Cholecystectomy, Hysterectomy, Orthopedic Surgery, Tonsillectomy Additional Past Surgical History / Comment(s): Recent low back injections, past 4 low back surgery, cervical surgery, removal of basal cell carcinoma from the face, PICC lines since removed, R sided infusaport, BMAs with biopsy, R breast benign lumpectomy, D&C, EGD/colonoscopy Past Anesthesia/Blood Transfusion Reactions: No Reported Reaction Additional Past Anesthesia/Blood Transfusion Reaction / Comm: Pt received blood in 2008 without reaction. Past Psychological History: No Psychological Hx Reported Smoking Status: Former smoker Past Alcohol Use History: None Reported Past Drug Use History: None Reported - Past Family History Mother Family Medical History: Coronary Artery Disease (CAD) Father Family Medical History: Cancer Additional Family Medical History / Comment(s): father lung cancer Medications and Allergies Home Medications Medication Instructions Recorded Confirmed Type Amitriptyline HCl [Elavil] 100 mg PO HS 09/10/13 10/16/16 History Lisinopril-Hctz 20-25 mg 1 tab PO DAILY 10/16/16 10/16/16 History [Zestoretic 20-25] Allergies Allergy/AdvReac Type Severity Reaction Status Date / Time ketorolac tromethamine Allergy Anaphylaxis Verified 10/16/16 13:32 [From Toradol] metoclopramide HCl Allergy Anaphylaxis Verified 10/16/16 13:32 [From Reglan] NSAIDS (Non-Steroidal Allergy Nausea & Verified 10/16/16 13:32 Anti-Inflamma Vomiting prochlorperazine edisylate Allergy Anaphylaxis Verified 10/16/16 13:32 [From Compazine] prochlorperazine maleate Allergy Anaphylaxis Verified 10/16/16 13:32 [From Compazine] Sulfa (Sulfonamide Allergy Rash/Hives Verified 10/16/16 13:32 Antibiotics) acetaminophen [From Tylenol] AdvReac Unknown Verified 10/16/16 13:32 Surgical - Exam Vital Signs Temp Pulse Resp BP Pulse Ox 98.1 F 99 16 142/98 97 10/16/16 12:26 10/16/16 12:26 10/16/16 12:26 10/16/16 12:26 10/16/16 12:26 - General well developed, no distress - Eyes PERRL - ENT normal pinna - Neck no masses - Respiratory normal expansion - Cardiovascular Rhythm: regular - Abdomen Mild epigastric tenderness. There is no rebound or guarding Abdomen: soft Results - Labs 10/16/16 13:25 10/16/16 13:25 Abnormal Lab Results - Last 24 Hours (Table) 10/16/16 10/16/16 10/16/16 Range/Units 13:25 13:25 13:25 WBC 37.6 H* (3.8-10.6) k/uL RBC 3.70 L (3.80-5.40) m/uL Hgb 11.0 L (11.4-16.0) gm/dL Hct 33.6 L (34.0-46.0) % RDW 17.5 H (11.5-15.5) % Neutrophils # (Manual) 10.2 H (1.3-7.7) k/uL Lymphocytes # (Manual) 25.4 H (1.0-4.8) k/uL Monocytes # (Manual) 1.7 H (0-1.0) k/uL APTT (22.0-30.0) sec AST 61 H (14-36) U/L ALT 55 H (9-52) U/L Alkaline Phosphatase 146 H (38-126) U/L Total Creatine Kinase 21 L (30-135) U/L 10/16/16 Range/Units 13:25 WBC (3.8-10.6) k/uL RBC (3.80-5.40) m/uL Hgb (11.4-16.0) gm/dL Hct (34.0-46.0) % RDW (11.5-15.5) % Neutrophils # (Manual) (1.3-7.7) k/uL Lymphocytes # (Manual) (1.0-4.8) k/uL Monocytes # (Manual) (0-1.0) k/uL APTT 21.5 L (22.0-30.0) sec AST (14-36) U/L ALT (9-52) U/L Alkaline Phosphatase (38-126) U/L Total Creatine Kinase (30-135) U/L Diabetes panel 10/16/16 Range/Units 13:25 Sodium 140 (137-145) mmol/L Potassium 3.5 (3.5-5.1) mmol/L Chloride 106 (98-107) mmol/L Carbon Dioxide 24 (22-30) mmol/L BUN 11 (7-17) mg/dL Creatinine 0.66 (0.52-1.04) mg/dL Glucose 86 (74-99) mg/dL Calcium 9.1 (8.4-10.2) mg/dL AST 61 H (14-36) U/L ALT 55 H (9-52) U/L Alkaline Phosphatase 146 H (38-126) U/L Total Protein 6.3 (6.3-8.2) g/dL Albumin 3.7 (3.5-5.0) g/dL Calcium panel 10/16/16 Range/Units 13:25 Calcium 9.1 (8.4-10.2) mg/dL Albumin 3.7 (3.5-5.0) g/dL Pituitary panel 10/16/16 Range/Units 13:25 Sodium 140 (137-145) mmol/L Potassium 3.5 (3.5-5.1) mmol/L Chloride 106 (98-107) mmol/L Carbon Dioxide 24 (22-30) mmol/L BUN 11 (7-17) mg/dL Creatinine 0.66 (0.52-1.04) mg/dL Glucose 86 (74-99) mg/dL Calcium 9.1 (8.4-10.2) mg/dL Adrenal panel 10/16/16 Range/Units 13:25 Sodium 140 (137-145) mmol/L Potassium 3.5 (3.5-5.1) mmol/L Chloride 106 (98-107) mmol/L Carbon Dioxide 24 (22-30) mmol/L BUN 11 (7-17) mg/dL Creatinine 0.66 (0.52-1.04) mg/dL Glucose 86 (74-99) mg/dL Calcium 9.1 (8.4-10.2) mg/dL Total Bilirubin 0.5 (0.2-1.3) mg/dL AST 61 H (14-36) U/L ALT 55 H (9-52) U/L Alkaline Phosphatase 146 H (38-126) U/L Total Protein 6.3 (6.3-8.2) g/dL Albumin 3.7 (3.5-5.0) g/dL Assessment and Plan Plan: Rule out retained common bile duct stone. Patient will undergo evaluation by the GI service for possible ERCP. She'll have her liver function tests repeated in the a.m.
[2016-10-16] MEDS: ONDANSETRON 4 MG/2 ML VIAL IVP PRN (18:21)
[2016-10-16] MEDS: HYDROmorphone 1 MG/ML 1 ML SYRINGE IV PRN ×2 (18:22→20:55)
[2016-10-16] MEDS: AMITRIPTYLINE HCL 50 MG TAB PO SCH (20:55)
[2016-10-16] MEDS: PANTOPRAZOLE 40 MG/10 ML VIAL IV SCH (21:50)
[2016-10-17] MEDS: HYDROmorphone 1 MG/ML 1 ML SYRINGE IV PRN ×7 (00:35→19:07)
[2016-10-17] MEDS: ONDANSETRON 4 MG/2 ML VIAL IVP PRN ×3 (03:31→17:18)
[2016-10-17] MEDS: SODIUM CHLORIDE 0.9% 1,000 ML IV SCH ×2 (05:18→10:25)
[2016-10-17] MEDS: PANTOPRAZOLE 40 MG/10 ML VIAL IV SCH ×2 (09:18→20:57)
[2016-10-17] MEDS: LISINOPRIL-HCTZ 20-25 MG 1 EACH TAB PO SCH (09:19)
--- NOTE | 2016-10-17 09:54 | P.CONS ---
History of Present Illness - Reason for Consult Consult date: 10/17/16 Pain, liver enzyme elevation.CLL - History of Present Illness Ms. Siegel is a [id number] female with a history of CLL diagnosed in 2007. She had bone marrow in [place] and was treated with fludarabine and Cytoxan for one cycle in 2011 with excellent response so she was placed on observation. Pt has moved several times and while in [place] in 2013 she received 1 cycle of Treanda and Rituxan for increasing WBC, she again had a good response and decided against continuing. In 08/30 she was seen at [facility] , her CBC showed no progression. She had been receiving monthly IVIg infusions in [place] from 01/29 to 07/31 for skin lesions with no changes, she had another IVIg infusion in 09/30 as her IgG levels were very low. CT scan of abdomen/pevis 11/03/13 which revealed no splenomegaly or lymphadenopathies, diffusely sclerotic osseous structures, bone scan done on 12/29/2013 revealed mild osseous changes, consistent with CLL. Bone marrow biopsy done 01/17/2014 revealed diffuse bone marrow involvement with CLL at 95%. Pt was last seen by Dr. Delgado 01/26/14 and she was moving. Pt states that treatment was attempted with irbutinib but she could not tolerate it so this was stopped. She states monthly IVIg infusions and CBC monitoring only. She just came back to the area in 09/02. She was admitted with choleycystitis in early 10/03. Her IgG level was 431, and she received IVIG infusions. She underwent a cholecystectomy and was discharged. The patient has continued to have abdominal discomfort as well as intermittent nausea and vomiting and had an ER visit after her discharge. She was admitted with persistence of these symptoms. On admission, she was again noted to have elevated liver enzymes in the same range as during her previous admission. WBC was elevated in the 30,000 range. Hemoglobin and platelets are stable. CT of the abdomen and pelvis showed a calcification at the site of the gallbladder neck, suspicious for bile duct stone. Consult was placed for further evaluation. Review of Systems Constitutional: Reports fatigue, Reports poor appetite Eyes: denies blurred vision, denies pain Ears, nose, mouth and throat: Denies headache, Denies sore throat Cardiovascular: Reports decreased exercise tolerance Respiratory: Denies cough Gastrointestinal: Reports as per HPI, Reports abdominal pain, Reports nausea, Reports vomiting Genitourinary: Denies dysuria, Denies hematuria Menstruation: Reports postmenopausal Musculoskeletal: Denies myalgias Integumentary: Reports rash (Prior history of recurrent issues with rash, which appeared to be reaction to insect bites. This has not recurred recently) Neurological: Reports weakness Psychiatric: Denies anxiety, Denies depression Endocrine: Denies fatigue, Denies weight change Hematologic/Lymphatic: Reports as per HPI Past Medical History Past Medical History: Asthma, Blood Disorder, Cancer, COPD, GERD/Reflux, GI Bleed, Hypertension, Pneumonia, Seizure Disorder, Thyroid Disorder Additional Past Medical History / Comment(s): CLL, basal cell carcinoma, pt states she does not make gamma globulin and normally gets gammaglobulin infusions monthLy-HAD 3 WEEKS AGO, anemia, rectal bleed, diverticular dx, colitis, IBS, chronic back pain and R sided sciatica, pt states she has seizures and last seizure 10-15-16, bilateral tinnitis, migraines, UTIs, thyroid problem in past, 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 History of Any Multi-Drug Resistant Organisms: None Reported Year Discovered:: OCTOBER 2013 MDRO Source:: STOOL Past Surgical History: Appendectomy, Back Surgery, Section, Cholecystectomy, Hysterectomy, Orthopedic Surgery, Tonsillectomy Additional Past Surgical History / Comment(s): Recent low back injections, past 4 low back surgery, cervical surgery, removal of basal cell carcinoma from the face, PICC lines since removed, R sided infusaport, BMAs with biopsy, R breast benign lumpectomy, D&C, EGD/colonoscopy Past Anesthesia/Blood Transfusion Reactions: No Reported Reaction Additional Past Anesthesia/Blood Transfusion Reaction / Comm: Pt received blood in 2008 without reaction. clausterphobia Smoking Status: Former smoker - Past Family History Mother Family Medical History: Coronary Artery Disease (CAD) Father Family Medical History: Cancer Additional Family Medical History / Comment(s): father lung cancer Medications and Allergies Home Medications Medication Instructions Recorded Confirmed Type Amitriptyline HCl [Elavil] 100 mg PO HS 09/10/13 10/16/16 History Lisinopril-Hctz 20-25 mg 1 tab PO DAILY 10/16/16 10/16/16 History [Zestoretic 20-25] Allergies Allergy/AdvReac Type Severity Reaction Status Date / Time ketorolac tromethamine Allergy Anaphylaxis Verified 10/16/16 13:32 [From Toradol] metoclopramide HCl Allergy Anaphylaxis Verified 10/16/16 13:32 [From Reglan] NSAIDS (Non-Steroidal Allergy Nausea & Verified 10/16/16 13:32 Anti-Inflamma Vomiting prochlorperazine edisylate Allergy Anaphylaxis Verified 10/16/16 13:32 [From Compazine] prochlorperazine maleate Allergy Anaphylaxis Verified 10/16/16 13:32 [From Compazine] Sulfa (Sulfonamide Allergy Rash/Hives Verified 10/16/16 13:32 Antibiotics) acetaminophen [From Tylenol] AdvReac Unknown Verified 10/16/16 13:32 Physical Exam Vitals: Vital Signs Temp Pulse Pulse Resp BP BP Pulse Ox 10/16/16 23:00 98 F 85 16 122/64 96 10/16/16 17:10 98.0 F 68 16 160/94 99 10/16/16 16:28 97.3 F L 87 18 142/80 96 10/16/16 15:04 85 16 160/88 99 10/16/16 13:51 79 18 147/88 99 10/16/16 12:26 98.1 F 99 16 142/98 97 Intake and Output 10/16/16 10/17/16 10/17/16 22:59 06:59 14:59 Intake Total 920 920 Balance 920 920 Intake: IV 920 920 Sodium Chloride 0.9% 1, 920 920 000 ml @ 115 mls/hr IV . Q8H42M [facility] Rx#:[id number] Other: Weight 90.718 kg - Constitutional General appearance: no acute distress - EENT Eyes: EOMI, PERRLA ENT: hearing grossly normal, normal oropharynx - Neck Neck: no lymphadenopathy Thyroid: bilateral: normal size - Respiratory Respiratory: bilateral: CTA - Cardiovascular Rhythm: regular Heart sounds: normal: S1, S2 - Gastrointestinal General gastrointestinal: normal bowel sounds, soft Localized gastrointestinal: tender: RUQ - Integumentary Integumentary: normal - Neurologic Neurologic: CNII-XII intact - Musculoskeletal Musculoskeletal: generalized weakness, strength equal bilaterally - Psychiatric Psychiatric: A&O x's 3, appropriate affect Results CBC & Chem 7: 10/16/16 13:25 10/16/16 13:25 Labs: Abnormal Lab Results - Last 24 Hours (Table) 10/16/16 10/16/16 10/16/16 Range/Units 13:25 13:25 13:25 WBC 37.6 H* (3.8-10.6) k/uL RBC 3.70 L (3.80-5.40) m/uL Hgb 11.0 L (11.4-16.0) gm/dL Hct 33.6 L (34.0-46.0) % RDW 17.5 H (11.5-15.5) % Neutrophils # (Manual) 10.2 H (1.3-7.7) k/uL Lymphocytes # (Manual) 25.4 H (1.0-4.8) k/uL Monocytes # (Manual) 1.7 H (0-1.0) k/uL APTT (22.0-30.0) sec AST 61 H (14-36) U/L ALT 55 H (9-52) U/L Alkaline Phosphatase 146 H (38-126) U/L Total Creatine Kinase 21 L (30-135) U/L 10/16/16 Range/Units 13:25 WBC (3.8-10.6) k/uL RBC (3.80-5.40) m/uL Hgb (11.4-16.0) gm/dL Hct (34.0-46.0) % RDW (11.5-15.5) % Neutrophils # (Manual) (1.3-7.7) k/uL Lymphocytes # (Manual) (1.0-4.8) k/uL Monocytes # (Manual) (0-1.0) k/uL APTT 21.5 L (22.0-30.0) sec AST (14-36) U/L ALT (9-52) U/L Alkaline Phosphatase (38-126) U/L Total Creatine Kinase (30-135) U/L CT scan - abdomen: report reviewed CT scan - pelvis: report reviewed Assessment and Plan (1) Abdominal pain Narrative/Plan: The patient has had persistent liver enzyme elevation, in the same range since her surgery. CT of the abdomen and pelvis does not show any evidence of an abscess or fluid leak, but does raise the possibility of a bile duct stone. This is most likely the cause of her symptoms. Her presentation does NOT appear to be related in any way to her underlying CLL. Defer to surgery, and GI for further management. Status: Acute (2) Chronic lymphocytic leukemia of B-cell type in remission Narrative/Plan: The patient's white count is increased from her usual baseline. With her current clinical presentation, this is most likely reactive, due to her recent cholecystitis, surgery, and ongoing inflammation. Her hemoglobin and platelets are stable. There is no evidence of any new adenopathy. Therefore, at this time, progression of the CLL is felt to be quite unlikely. She will have continued follow-up, with Dr. Delgado in the office, after resolution of her acute problems. If WBC remains elevated even in those circumstances, that would indicate progression. However even in that case, at this time the patient really does not have any criteria for initiation of treatment. Status: Chronic (3) Hypogammaglobulinemia Narrative/Plan: The patient has been receiving IVIG infusions approximately every month. Did have an an infusion of for IgG level of 431, about 3 weeks ago. With no evidence of any active infection currently, there does not seem to be an indication to repeat infusions right now or to check levels. These will be checked as an outpatient, and further infusion set up, when she follows up with Dr. Barfield. Status: Acute
[2016-10-17] MEDS: LORazepam 2 MG/ML SYRINGE IV PRN ×2 (11:35→18:03)
--- NOTE | 2016-10-17 12:35 | P.PN ---
Subjective Principal diagnosis: Abdominal pain, elevated liver function tests The patient continues to have abdominal pain. She is thirsty. She is afraid to eat. She's not been evaluated by GI. Objective - Vital Signs Vital signs: Vital Signs Temp 97.9 F 10/17/16 07:00 Pulse 73 10/17/16 07:00 Resp 16 10/17/16 07:00 BP 159/99 10/17/16 07:00 Pulse Ox 98 10/17/16 07:00 Intake & Output 10/16/16 10/17/16 10/17/16 18:59 06:59 18:59 Intake Total 1840 Balance 1840 Weight 90.718 kg 90.718 kg Intake: IV 1840 Sodium Chloride 0.9% 1, 1840 000 ml @ 115 mls/hr IV . Q8H42M [facility] Rx#:[id number] - Constitutional General appearance: Present: cooperative, mild distress (Appears anxious regarding her medical situation) - Gastrointestinal General gastrointestinal: Present: soft - Integumentary Integumentary: Absent: jaundiced - Labs CBC & Chem 7: 10/16/16 13:25 10/16/16 13:25 Labs: Abnormal Lab Results - Last 24 Hours (Table) 10/16/16 10/16/16 10/16/16 Range/Units 13:25 13:25 13:25 WBC 37.6 H* (3.8-10.6) k/uL RBC 3.70 L (3.80-5.40) m/uL Hgb 11.0 L (11.4-16.0) gm/dL Hct 33.6 L (34.0-46.0) % RDW 17.5 H (11.5-15.5) % Neutrophils # (Manual) 10.2 H (1.3-7.7) k/uL Lymphocytes # (Manual) 25.4 H (1.0-4.8) k/uL Monocytes # (Manual) 1.7 H (0-1.0) k/uL APTT (22.0-30.0) sec AST 61 H (14-36) U/L ALT 55 H (9-52) U/L Alkaline Phosphatase 146 H (38-126) U/L Total Creatine Kinase 21 L (30-135) U/L 06/30/17 Range/Units 13:25 WBC (3.8-10.6) k/uL RBC (3.80-5.40) m/uL Hgb (11.4-16.0) gm/dL Hct (34.0-46.0) % RDW (11.5-15.5) % Neutrophils # (Manual) (1.3-7.7) k/uL Lymphocytes # (Manual) (1.0-4.8) k/uL Monocytes # (Manual) (0-1.0) k/uL APTT 21.5 L (22.0-30.0) sec AST (14-36) U/L ALT (9-52) U/L Alkaline Phosphatase (38-126) U/L Total Creatine Kinase (30-135) U/L Assessment and Plan (1) Bile duct obstruction Status: Acute (2) Abdominal pain Status: Acute Plan: Await evaluation by GI. The patient is currently nonsurgical.
[2016-10-17] MEDS: AMITRIPTYLINE HCL 50 MG TAB PO SCH (20:56)
[2016-10-17] MEDS: HEPARIN SODIUM,PORCINE 5,000 UNIT/ML 1 ML VIAL SQ SCH (20:58)
[2016-10-17] MEDS ORDERED: METOCLOPRAMIDE 5 MG/ML 2 ML VIAL IVP PRN (21:35)
[2016-10-17] MEDS: HYDROmorphone 1 MG/ML 1 ML SYRINGE IVP PRN (21:50)
[2016-10-18] MEDS: ONDANSETRON 4 MG/2 ML VIAL IVP PRN ×3 (01:52→19:24)
[2016-10-18] MEDS: HYDROmorphone 1 MG/ML 1 ML SYRINGE IVP PRN ×4 (01:54→14:12)
[2016-10-18] MEDS: LORazepam 2 MG/ML SYRINGE IV PRN ×4 (02:12→21:34)
[2016-10-18] MEDS: SODIUM CHLORIDE 0.9% 1,000 ML IV SCH ×2 (05:38→12:58)
[2016-10-18] MEDS: HEPARIN SODIUM,PORCINE 5,000 UNIT/ML 1 ML VIAL SQ SCH ×2 (07:33→19:22)
[2016-10-18] MEDS: PANTOPRAZOLE 40 MG/10 ML VIAL IV SCH ×2 (07:33→21:27)
[2016-10-18 08:15] LABS: ALT 268 U/L (9-52); AST 274 U/L (14-36); Alkaline Phosphatase 298 U/L (38-126); Anion Gap 11 mmol/L; Blood Urea Nitrogen 7 mg/dL (7-17); Calcium 8.9 mg/dL (8.4-10.2); Carbon Dioxide 26 mmol/L (22-30); Chloride 102 mmol/L (98-107); Glucose 102 mg/dL (74-99); Non-African American GFR(MDRD) >60 (>60 ml/min/1.73 sqM); Potassium 3.3 mmol/L (3.5-5.1); Sodium 139 mmol/L (137-145); Total Bilirubin 0.7 mg/dL (0.2-1.3); Total Protein 6.1 g/dL (6.3-8.2)
[2016-10-18 08:29] LABS: Anisocytosis Slight; Aty Lym Flag Marked; CH 28.3; CHCM 32.1; HCT 35.2 % (34.0-46.0); HDW 3.12; HGB 11.9 gm/dL (11.4-16.0); Hypochromasia Slight; MCHC 33.8 g/dL (31.0-37.0); MCV 88.8 fL (80.0-100.0); Mean Platelet Volume 7.3; RBC 3.96 m/uL (3.80-5.40); RDW 17.3 % (11.5-15.5); WBC (Perox) 30.88
[2016-10-18 09:19] LABS: Add Differential Manual Differential
--- NOTE | 2016-10-18 09:20 | P.CONS ---
History of Present Illness - Reason for Consult Consult date: 10/17/16 - History of Present Illness This a 61-year-old female who was admitted through the emergency room with complete abdominal pain. Patient states that he had she has severe crampy at the epigastric abdominal pain. The patient underwent laparoscopic cholecystectomy proximal 2 weeks ago. Patient to CAT scan which is suggestive of a retained common bile duct stone. The patient has a history of CLL. Her white count is chronically elevated in the 25-35 range. Review of Systems Constitutional: Reports fatigue, Reports poor appetite Eyes: denies blurred vision, denies pain Ears, nose, mouth and throat: Denies headache, Denies sore throat Cardiovascular: Reports decreased exercise tolerance Respiratory: Denies cough Gastrointestinal: Reports as per HPI, Reports abdominal pain, Reports nausea, Reports vomiting Genitourinary: Denies dysuria, Denies hematuria Menstruation: Reports postmenopausal Musculoskeletal: Denies myalgias Integumentary: Reports rash (Prior history of recurrent issues with rash, which appeared to be reaction to insect bites. This has not recurred recently) Neurological: Reports weakness Psychiatric: Denies anxiety, Denies depression Endocrine: Denies fatigue, Denies weight change Hematologic/Lymphatic: Reports as per HPI Past Medical History Past Medical History: Asthma, Blood Disorder, Cancer, COPD, GERD/Reflux, GI Bleed, Hypertension, Pneumonia, Seizure Disorder, Thyroid Disorder Additional Past Medical History / Comment(s): CLL, basal cell carcinoma, pt states she does not make gamma globulin and normally gets gammaglobulin infusions monthLy-HAD 3 WEEKS AGO, anemia, rectal bleed, diverticular dx, colitis, IBS, chronic back pain and R sided sciatica, pt states she has seizures and last seizure 10-15-16, bilateral tinnitis, migraines, UTIs, thyroid problem in past, 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 History of Any Multi-Drug Resistant Organisms: None Reported Year Discovered:: OCTOBER 2013 MDRO Source:: STOOL Past Surgical History: Appendectomy, Back Surgery, Section, Cholecystectomy, Hysterectomy, Orthopedic Surgery, Tonsillectomy Additional Past Surgical History / Comment(s): Recent low back injections, past 4 low back surgery, cervical surgery, removal of basal cell carcinoma from the face, PICC lines since removed, R sided infusaport, BMAs with biopsy, R breast benign lumpectomy, D&C, EGD/colonoscopy Past Anesthesia/Blood Transfusion Reactions: No Reported Reaction Additional Past Anesthesia/Blood Transfusion Reaction / Comm: Pt received blood in 2008 without reaction. clausterphobia Smoking Status: Former smoker - Past Family History Mother Family Medical History: Coronary Artery Disease (CAD) Father Family Medical History: Cancer Additional Family Medical History / Comment(s): father lung cancer Medications and Allergies Home Medications Medication Instructions Recorded Confirmed Type Amitriptyline HCl [Elavil] 100 mg PO HS 09/10/13 10/16/16 History Lisinopril-Hctz 20-25 mg 1 tab PO DAILY 10/16/16 10/16/16 History [Zestoretic 20-25] Allergies Allergy/AdvReac Type Severity Reaction Status Date / Time ketorolac tromethamine Allergy Anaphylaxis Verified 10/16/16 13:32 [From Toradol] metoclopramide HCl Allergy Anaphylaxis Verified 10/16/16 13:32 [From Reglan] NSAIDS (Non-Steroidal Allergy Nausea & Verified 10/16/16 13:32 Anti-Inflamma Vomiting prochlorperazine edisylate Allergy Anaphylaxis Verified 10/16/16 13:32 [From Compazine] prochlorperazine maleate Allergy Anaphylaxis Verified 10/16/16 13:32 [From Compazine] Sulfa (Sulfonamide Allergy Rash/Hives Verified 10/16/16 13:32 Antibiotics) acetaminophen [From Tylenol] AdvReac Unknown Verified 10/16/16 13:32 Physical Exam Vitals: Vital Signs Temp Pulse Pulse Resp BP BP Pulse Ox 10/17/16 07:00 97.9 F 73 16 159/99 98 10/16/16 23:00 98 F 85 16 122/64 96 10/16/16 17:10 98.0 F 68 16 160/94 99 10/16/16 16:28 97.3 F L 87 18 142/80 96 Intake and Output 10/17/16 10/17/16 10/17/16 06:59 14:59 22:59 Intake Total 920 Balance 920 Intake: IV 920 Sodium Chloride 0.9% 1, 920 000 ml @ 115 mls/hr IV . [id number] [facility] Rx#:[id number] Other: Weight 90.718 kg On physical examination, patient appears comfortable in no apparent distress. Vital signs are stable. Blood pressure is [], pulse is [], temperature []. HEENT: Unremarkable. Conjunctivae pink. Sclerae anicteric. Oral cavity no lesions. NECK: No JVD or lymph node enlargement. CHEST: Clear to auscultation. HEART: Regular rate and rhythm. ABDOMEN: Soft. Bowel sounds are positive. No organomegaly. EXTREMITIES: No pedal edema. SKIN: No rashes. NEUROLOGIC: Alert and oriented x3. No focal deficits. Results CBC & Chem 7: 10/18/16 08:00 10/18/16 05:38 Assessment and Plan Plan: 61-year old female S/P recent cholecystectomy presenting with abdominal pains and abnormal LFT's and suggestion of CBD stone. Will repeat labs in AM. Will consider ERCP tomorrow or Wednesday based on her course and enzymes.
[2016-10-18 09:21] LABS: WBC 31.9 k/uL (3.8-10.6)
[2016-10-18 09:22] LABS: Metamyelocytes % 2.5 %; Nucleated Red Blood Cells 0 /100 WBC (0-0); Polychromasia Present; Total Cells Counted 200
--- NOTE | 2016-10-18 11:18 | P.PN ---
Progress Note - Text The patient continues to have pain. Her liver function tests are going up. Her white counts coming down. I spoke with Dr. Lau via phone. Hopefully does a ERCP on her within the next day or so.
[2016-10-18] MEDS ORDERED: hydrALAZINE HCL 20 MG/ML 1 ML VIAL IVP PRN (11:19)
[2016-10-18 11:38] LABS: Amylase 125 U/L (30-110)
[2016-10-18] MEDS: LISINOPRIL-HCTZ 20-25 MG 1 EACH TAB PO SCH (12:02)
--- NOTE | 2016-10-18 12:41 | XR ---
EXAMINATION TYPE: XR abdomen acute w cxr DATE OF EXAM: 10/18/2016 COMPARISON: NONE HISTORY: Pain TECHNIQUE: Single view of the chest and 2 views of the abdomen are submitted. FINDINGS: Single view of the chest fails demonstrate evidence for acute pulmonary disease. There is no evidence for pneumoperitoneum. The bowel gas pattern is unremarkable as there is air throughout nondilated small and large bowel. No sizeable air fluid levels.No mass effects are seen. No unusual calcifications. Sclerotic bony metastases. IMPRESSION: 1. Unremarkable abdomen. Bone metastases.
[2016-10-18] MEDS: MORPHINE SULFATE IR 15 MG TABLET PO PRN ×3 (12:49→23:54)
[2016-10-18] MEDS: MORPHINE SULFATE ER 30 MG TABLET PO SCH (19:55)
[2016-10-19] MEDS: MORPHINE SULFATE IR 15 MG TABLET PO PRN ×3 (05:54→16:28)
[2016-10-19] MEDS: ONDANSETRON 4 MG/2 ML VIAL IVP PRN ×2 (06:02→16:28)
[2016-10-19] MEDS: SODIUM CHLORIDE 0.9% 1,000 ML IV SCH (06:06)
--- NOTE | 2016-10-19 06:50 | P.PN ---
Progress Note - Text Await evaluation and recommendations from GI.
[2016-10-19] MEDS: HEPARIN SODIUM,PORCINE 5,000 UNIT/ML 1 ML VIAL SQ SCH ×2 (07:49→19:58)
[2016-10-19] MEDS: MORPHINE SULFATE ER 30 MG TABLET PO SCH ×2 (08:14→19:57)
[2016-10-19] MEDS: PANTOPRAZOLE 40 MG/10 ML VIAL IV SCH ×2 (08:15→19:58)
[2016-10-19] MEDS: LISINOPRIL-HCTZ 20-25 MG 1 EACH TAB PO SCH (08:15)
[2016-10-19] MEDS: LORazepam 2 MG/ML SYRINGE IV PRN ×2 (08:35→21:15)
[2016-10-19 09:53] LABS: Anisocytosis Slight; Aty Lym Flag Moderate; CHCM 32.3; HCT 34.9 % (34.0-46.0); HDW 3.09; HGB 11.4 gm/dL (11.4-16.0); MCH 29.6 pg (25.0-35.0); MCHC 32.7 g/dL (31.0-37.0); MCV 90.3 fL (80.0-100.0); Mean Platelet Volume 7.7; RBC 3.87 m/uL (3.80-5.40); RDW 17.6 % (11.5-15.5); WBC (Perox) 33.38
[2016-10-19 10:08] LABS: ALT 158 U/L (9-52); AST 112 U/L (14-36); Alkaline Phosphatase 234 U/L (38-126); Anion Gap 12 mmol/L; Blood Urea Nitrogen 13 mg/dL (7-17); Calcium 8.7 mg/dL (8.4-10.2); Carbon Dioxide 20 mmol/L (22-30); Chloride 106 mmol/L (98-107); Glucose 70 mg/dL (74-99); Non-African American GFR(MDRD) >60 (>60 ml/min/1.73 sqM); Potassium 3.1 mmol/L (3.5-5.1); Sodium 138 mmol/L (137-145); Total Bilirubin 0.6 mg/dL (0.2-1.3); Total Protein 5.6 g/dL (6.3-8.2)
[2016-10-19 10:21] LABS: WBC 33.2 k/uL (3.8-10.6)
[2016-10-19] MEDS ORDERED: INDOMETHACIN 50MG SUPPOSITORY RECTAL ONE (10:37)
[2016-10-19] MEDS ORDERED: LEVOFLOXACIN 500MG-D5W PMX 500 MG in DEXTROSE/WATER 1 100ML.BAG IVPB STA (10:38)
[2016-10-19] MEDS: LACTATED RINGERS 1,000 ML IV SCH ×2 (11:00→23:29)
[2016-10-19 13:22] LABS: Add Differential Manual Differential
[2016-10-19 13:25] LABS: Nucleated Red Blood Cells 0 /100 WBC (0-0); Total Cells Counted 200
[2016-10-19 13:26] LABS: Toxic Granulation Present
[2016-10-19] MEDS ORDERED: PROPOFOL 10 MG/ML 20 ML VIAL IV ONE (14:21)
[2016-10-19] MEDS ORDERED: HYDROCORTISONE SUCCINATE 100 MG/2 ML VIAL ONE (14:21)
[2016-10-19] MEDS ORDERED: IV FLUID CONTINUATION 1,000 ML IV ONE (14:26)
[2016-10-19] MEDS ORDERED: IOHEXOL 300 MG/ML 50 ML BOTTLE MISCELLANE ONE (15:04)
--- NOTE | 2016-10-19 15:42 | FL ---
Fluoroscopy INDICATION: Postop abdominal pain FINDINGS: Fluoroscopy time: 32 seconds. Images obtained: 1. IMPRESSIONS: 1. Documentation of fluoroscopy.
--- NOTE | 2016-10-19 15:58 | P.PCN ---
Date of Procedure: 10/19/16 Preoperative Diagnosis: Postoperative Diagnosis: Procedure(s) Performed: Procedure: Endoscopic retrograde cholangiography with sphincterotomy and passing of the 11.5 mm balloon catheter across the sphincterotomy site multiple times fully inflated. Preoperative diagnosis: Abdominal pain, abnormal liver chemistries and abnormal CT of the abdomen 2 weeks following cholecystectomy. Postoperative diagnosis: 1. Dilated common bile duct with suggestion of filling defects noted under fluoroscopy raising the possibility of retained common bile duct stone. 2. No bile leak demonstrated at the cystic duct stump. 3. Successful sphincterotomy with passing of the 11.5 mm balloon catheter in a sweeping motion through the common bile duct and across the sphincterotomy site fully inflated multiple times with no common bile duct stones seen during this maneuver. Preparation and sedation: Were provided by anesthesia. Brief clinical history: The patient is a 61-year-old female who was admitted through the emergency room with abdominal pain. Patient states that she has severe crampy epigastric/abdominal pain. The patient underwent laparoscopic cholecystectomy approximately 2 weeks ago[address] Patient had CT scan which is suggestive of a retained common bile duct stone. The patient has a history of CLL. Her white count is chronically elevated in the 25-35 range. The patient had elevated liver enzymes but normal bilirubin. She continued to have a pressure sensation in her abdomen and was symptomatic every night since admission. This evaluation to assess for possible common bile duct stone. The details are summarized in the history and physical and dictated consultation. Procedure: With the patient in the prone position and after informed consent and adequate sedation, I passed the Olympus video duodenoscope down the esophagus into the stomach then passed it through the pylorus into the duodenum and brought the papilla into view. Initial cannulation and injection with dye resulted in opacification of the common bile duct. The common bile duct and biliary tree were visualized as well as the cystic duct stump. There was suggestion of faint filling defects observed under fluoroscopy raising the possibility of common bile duct stones. No bile leakage was demonstrated. I then proceeded to exchange the catheter for a sphincterotome over a guidewire. After adequate sphincterotomy I exchanged the sphincterotome for an 11.5 mm balloon catheter. The balloon catheter was advanced to the proximal common bile duct and inflated and was withdrawn fully inflated multiple times. During this sweeping motion of the common bile duct we did not see any common bile duct stones emerge at the sphincterotomy site. The patient tolerated the procedure well and did not have any immediate complications. Plan: The patient was reassured. Will allow liquid diet and monitor her symptoms and liver enzymes closely. Further plans based on her course. Will continue to follow with you with interest. Implants: Indications for Procedure: Operative Findings: Description of Procedure:
[2016-10-19 17:34] LABS: Glucose,Whole Blood 102 mg/dL (75-99)
[2016-10-20] MEDS: MORPHINE SULFATE IR 15 MG TABLET PO PRN ×2 (00:20→05:59)
[2016-10-20] MEDS: LORazepam 2 MG/ML SYRINGE IV PRN ×2 (02:31→09:50)
[2016-10-20 06:44] LABS: Anisocytosis Slight; Aty Lym Flag Marked; CH 28.8; CHCM 32.5; HCT 32.7 % (34.0-46.0); HDW 3.13; HGB 10.8 gm/dL (11.4-16.0); MCH 29.4 pg (25.0-35.0); MCHC 33.1 g/dL (31.0-37.0); Mean Platelet Volume 7.8; RBC 3.68 m/uL (3.80-5.40); RDW 17.8 % (11.5-15.5)
[2016-10-20 06:48] LABS: ALT 127 U/L (9-52); AST 77 U/L (14-36); Alkaline Phosphatase 220 U/L (38-126); Anion Gap 10 mmol/L; Blood Urea Nitrogen 18 mg/dL (7-17); Calcium 9.1 mg/dL (8.4-10.2); Carbon Dioxide 23 mmol/L (22-30); Chloride 105 mmol/L (98-107); Glucose 89 mg/dL (74-99); Non-African American GFR(MDRD) >60 (>60 ml/min/1.73 sqM); Potassium 3.4 mmol/L (3.5-5.1); Sodium 138 mmol/L (137-145); Total Bilirubin 0.5 mg/dL (0.2-1.3); Total Protein 5.6 g/dL (6.3-8.2)
[2016-10-20 06:56] LABS: WBC 42.6 k/uL (3.8-10.6)
[2016-10-20] MEDS: PANTOPRAZOLE 40 MG/10 ML VIAL IV SCH (07:53)
[2016-10-20] MEDS: MORPHINE SULFATE ER 30 MG TABLET PO SCH (07:53)
[2016-10-20] MEDS: HEPARIN SODIUM,PORCINE 5,000 UNIT/ML 1 ML VIAL SQ SCH (07:53)
[2016-10-20] MEDS: LISINOPRIL-HCTZ 20-25 MG 1 EACH TAB PO SCH (07:53)
[2016-10-20 08:19] VITALS: BP 122/70; PULSE 81; RESP 20; TEMP 97.9
--- NOTE | 2016-10-20 10:10 | P.PN ---
Progress Note - Text The patient underwent ERCP with stenting yesterday. Her pain is gone. She's feeling well and anxious to be discharged. Assessment, choledocholithiasis status post laparoscopic cholecystectomy Recommendation: Surgically stable for discharge. Follow-up with Dr. Aguilar as needed.
[2016-10-20 10:38] LABS: Add Differential Manual Differential
[2016-10-20 10:42] LABS: Manual Review Performed; Nucleated Red Blood Cells 0 /100 WBC (0-0); Total Cells Counted 100
--- NOTE | 2016-10-25 13:09 | HP ---
DATE OF SERVICE: 10/16/2016 CHIEF COMPLAINT: Abdominal pain. HISTORY OF PRESENT ILLNESS: This 61-year-old woman who has a past medical history of multiple medical problems, including history of asthma, history of COPD, history of CLL, history of seizure disorder, had a laparoscopic cholecystectomy about 2 weeks ago. The patient was complaining of upper abdominal pain. The patient had elevated LFTs and was admitted for further evaluation and treatment. There is no history of any fever, rigor, chills, no history of headache, loss of consciousness. PAST MEDICAL HISTORY: 1. Asthma. 2. COPD. 3. GI bleed. 4. History of recent laparoscopic cholecystectomy. HOME MEDICATIONS: 1. Prednisone 10 mg daily. 2. MS Contin 30 mg p.o. b.i.d. 3. Zestoretic 1 tablet p.o. daily. 4. Protonix 40 mg daily. 5. MSIR 15 mg t.i.d. ALLERGIES: 1. KETOROLAC. 2. METOCLOPRAMIDE. 3. NSAIDS. 4. PROCHLORPERAZINE. 5. SULFA. FAMILY HISTORY: History of cancer in the family. SOCIAL HISTORY: Previous history of smoking. No history of alcohol intake. REVIEW OF SYSTEMS: ENT: No diminished hearing. No diminished vision. CARDIOVASCULAR SYSTEM: No angina. RESPIRATORY SYSTEM: As mentioned earlier. GI: As mentioned earlier. : No dysuria, retention. NERVOUS SYSTEM: No numbness, weakness. ALLERGY/IMMUNOLOGY: No asthma, hayfever. MUSCULOSKELETAL: As mentioned earlier. HEMATOLOGY/ONCOLOGY: No history of anemia. ENDOCRINE: No history of diabetes or hypothyroidism. CONSTITUTIONAL: As mentioned earlier. DERMATOLOGIC: Negative. RHEUMATOLOGIC: Negative. PSYCHIATRY: As mentioned earlier. PHYSICAL EXAMINATION: Patient is alert and oriented x3. Pulse is 99, blood pressure 148/98, respirations 16, temperature 98.1, pulse ox 97% on room air. HEENT: Conjunctivae normal. NECK: No jugular venous congestion. CARDIAC: S1, S2 muffled. RESPIRATORY: Breath sounds diminished at the bases. Scattered rhonchi and crackles. ABDOMEN: Soft. Mild diffuse discomfort in the upper abdomen. LEGS: No edema. No swelling. NERVOUS SYSTEM: Higher functions as mentioned earlier. Moves all 4 limbs. No focal motor or sensory deficit. LYMPHATICS: No lymph node palpable in neck, axillae or groin. SKIN: No ulcer, rash or bleeding. LABS: WBC 37.6. AST 61, ALT 55, alkaline phosphatase 146. ASSESSMENT: 1. Upper abdominal pain; possibly common bile duct stones. 2. History of recent laparoscopic cholecystectomy. 3. Chronic lymphocytic leukemia. 4. Chronic pain syndrome. 5. History of asthma, chronic obstructive pulmonary disease. 6. Multiple other medical issues. RECOMMENDATIONS AND DISCUSSION: In this 61-year-old woman who presented with multiple complex medical issues, we will monitor the patient closely, continue the current medications, symptomatic treatment for the pain. Otherwise, repeat labs. Guarded prognosis because of multiple complex medical issues. Further recommendations to follow. Gastroenterology evaluation for possible ERCP. MTDD
--- NOTE | 2016-10-25 13:24 | PN ---
DATE OF SERVICE: 10/17/2016 This 61-year-old woman was admitted with upper abdominal pain after cholecystectomy. She has elevated LFTs. CBD stones were suspected. The patient is complaining of nausea and vomiting also. The patient has multiple pain medications, but she is still complaining of pain despite significant pain medication. Past medical history reviewed. REVIEW OF SYSTEMS: CARDIOVASCULAR SYSTEM: No angina, palpitations. RESPIRATORY SYSTEM: As mentioned earlier. GI: As mentioned earlier. : No dysuria, retention. NERVOUS SYSTEM: No numbness, weakness. Current medications are reviewed. Doses are reviewed. On exam, alert and oriented x3. Pulse 84, blood pressure 160/91, respiration 16 , temperature 98 degrees, pulse ox 99% on room air. HEENT: Conjunctivae normal. NECK: No jugular venous distention. CARDIOVASCULAR: S1, S2 muffled. RESPIRATORY: Breath sounds diminished at the bases. No rhonchi. No crackles. ABDOMEN: Soft. Diffuse tenderness, upper abdomen. No guarding. No rigidity. No mass palpable. LEGS: No edema. No swelling. NERVOUS SYSTEM: No focal deficit. LABS: WBC 31.9. Other labs are noted. AST has increased to 274. ALT 268. ASSESSMENT: 1. Upper abdominal pain; possibly common bile duct stones. 2. History of recent laparoscopic cholecystectomy. 3. Chronic obstructive pulmonary disease. 4. Gastroesophageal reflux disease. 5. Hypertension. 6. seizure disorder. RECOMMENDATIONS AND DISCUSSION: I recommend to continue current medications, continue with symptomatic treatment. Otherwise, at this time I recommend gastroenterology evaluation. Guarded prognosis because of multiple complex medical issues. Further recommendations to follow. MTDD
--- NOTE | 2016-10-25 13:28 | PN ---
DATE OF SERVICE: 10/18/2016 This 61-year-old woman who was admitted with upper abdominal pain is suspected to have CBD stones. No chest pain. No palpitations. No fever. On exam, alert and oriented x3. Pulse 96, blood pressure 120/77, respiration 18 , temperature 98.1, pulse ox 96% on room air. HEENT: Conjunctivae normal. NECK: No jugular venous distention. CARDIOVASCULAR: S1, S2 muffled. RESPIRATORY: Breath sounds diminished at the bases. No rhonchi. No crackles. ABDOMEN: Soft. Minimal diffuse tenderness. LEGS: No edema. No swelling. NERVOUS SYSTEM: No focal deficit. LABS: WBC 31.9. Other labs are noted. ASSESSMENT: 1. Upper abdominal pain with possible common bile duct stones. 2. History of recent cholecystectomy. RECOMMENDATIONS AND DISCUSSION: I recommend to continue current medications, continue with the monitoring, symptomatic treatment. Otherwise, at this time I would recommend gastroenterology evaluation. Further recommendations to follow. MTDD
--- NOTE | 2016-10-25 13:53 | PN ---
DATE OF SERVICE: 10/19/2016 This 61-year-old woman was admitted with upper abdominal pain also has elevated LFTs. The patient underwent ERCP and sphincterotomy by Dr. Lau. The patient is feeling much better. No chest pain, no palpitations. No fever. On exam, alert and oriented x3. Pulse 83, blood pressure 112/66, respirations 16 , temperature 98.1, pulse ox 94% on room air. HEENT: Conjunctivae normal. NECK: No jugular venous distention. CARDIOVASCULAR: S1, S2. RESPIRATORY: Breath sounds are diminished at the bases. No rhonchi, no crackles. ABDOMEN: Soft, nontender. LEGS: No edema. NERVOUS SYSTEM: No focal deficits. LABS: WBC 33.2, AST 112, other labs are noted. ASSESSMENT: 1. Upper abdominal pain, possibly common bile duct stones status post ERCP. 2. History of recent laparoscopic cholecystectomy. 3. History of asthma, chronic obstructive pulmonary disease. 4. History of gastroesophageal reflux disease. 5. History of hypertension. 6. Multiple medical issues. RECOMMENDATIONS AND DISCUSSIONS: Continue the current medications, continue monitoring and symptomatic treatment. Guarded prognosis. Further recommendations to follow. Repeat labs in the morning. MTDD
--- NOTE | 2016-10-26 14:36 | DS ---
FINAL DIAGNOSES: 1. Upper abdominal pain with possible common bile duct stones. 2. Recent laparoscopic cholecystectomy. 3. History of status post ERCP and sphincterotomy. 4. History of asthma, chronic obstructive pulmonary disease. 5. Multiple other medical issues. 6. Chronic lymphatic leukemia. HISTORY OF PRESENT ILLNESS: This 61 year old woman with history of multiple medical problems underwent recent laparoscopic cholecystectomy. The patient had upper abdominal pain as well as CBD stones. The patient underwent ERCP, improving significantly. On exam, vital signs are stable. Cardiovascular: S1, S2. Abdomen soft. Nervous system: No focal deficits. DISCHARGE ADVICE AND MEDICATIONS: 1. Diet is cardiac. 2. Activity limited until followup. 3. Followup with Dr. Memo Sun in one to two days. 4. Followup with Dr. Lau as advised. 5. pain management. 6. Zestoretic one tablet po daily. 7. MS Contin 30 mg po b.i.d. 8. MSIR 50 mg t.i.d. prn 9. Protonix 40 mg daily. 10. Prednisone 10 mg po daily. MTDD
== END 2016-10-20 12:30 | disposition home or self-care (01) | DRG 445 ==
LOC: EC 12:23 → 5ONC 16:29
PROVIDERS: ADMIT Hospitalist; ATTEND Hospitalist
PROC: 0F798ZZ Dilation of Common Bile Duct, Via Natural or Artificial Opening Endoscopic (ICD-10-PCS; principal; 2016-10-19 08:40)
PROC: BF101ZZ Fluoroscopy of Bile Ducts using Low Osmolar Contrast (ICD-10-PCS; 2016-10-19 08:40)
DX: K80.50 Calculus of bile duct without cholangitis or cholecystitis without obstruction (principal); C91.11 Chronic lymphocytic leukemia of B-cell type in remission; D80.1 Nonfamilial hypogammaglobulinemia; I10 Essential (primary) hypertension; J44.9 Chronic obstructive pulmonary disease, unspecified; K21.9 Gastro-esophageal reflux disease without esophagitis; E07.9 Disorder of thyroid, unspecified; M54.9 Dorsalgia, unspecified; G89.29 Other chronic pain; G40.909 Epilepsy, unspecified, not intractable, without status epilepticus; Z85.828 Personal history of other malignant neoplasm of skin; Z90.710 Acquired absence of both cervix and uterus; Z90.49 Acquired absence of other specified parts of digestive tract; Z87.891 Personal history of nicotine dependence; Z86.19 Personal history of other infectious and parasitic diseases; Z79.899 Other long term (current) drug therapy; Z88.6 Allergy status to analgesic agent; Z88.2 Allergy status to sulfonamides; Z88.8 Allergy status to other drugs, medicaments and biological substances
CPT/HCPCS: 36415; 43262; 43277; 74022; 74177; 74330; 80053; 81003; 82150; 82272; 82550; 82553; 83690; 84484; 85025; 85610; 85730; 93005; 96361; 96374; 96375; 96376; 99285

== ENCOUNTER 2016-11-03 11:15 | Emergency (ER) | payer MEDICARE ==
[2016-11-03 11:32] VITALS: RESP 20
[2016-11-03] MEDS ORDERED: MINERAL OIL 133 ML ENEMA RECTAL STA (12:03)
[2016-11-03] MEDS ORDERED: ONDANSETRON ODT 8 MG TAB.RAPDIS PO STA (12:03)
[2016-11-03] MEDS ORDERED: MAGNESIUM CITRATE 296 ML BOTTLE PO ONE (12:04)
[2016-11-03] MEDS ORDERED: DOCUSATE 100 MG CAP PO STA (12:04)
--- NOTE | 2016-11-03 12:08 | ED ---
Abdominal Pain HPI - General Chief Complaint: Abdominal Pain Stated Complaint: Abd Pain Time Seen by Provider: 11/03/16 11:50 Source: patient Mode of arrival: ambulatory Limitations: no limitations - History of Present Illness Initial Comments: This 61-year-old white female presents with a complaint of constipation. She states that she had her gallbladder out and then another scope afterwards and was discharged from the hospital on October 20, 2 weeks ago. She states that she has not had normal bowel movements ever since that time. She is taking strong narcotic medications for her chronic back pain. She has had long-standing constipation problems but states that this is the worse she has had. She has had occasional nausea and vomiting. She has not had any recorded fevers or temperatures. She states that she had a small bowel movement yesterday. No other complaints or modifying factors. - Related Data Home Medications Medication Instructions Recorded Confirmed Lisinopril-Hctz 20-25 mg 1 tab PO DAILY 10/16/16 11/03/16 [Zestoretic 20-25] Previous Rx's Medication Instructions Recorded Pantoprazole Sodium [Protonix] 40 mg PO DAILY #30 tablet. 10/20/16 Allergies Allergy/AdvReac Type Severity Reaction Status Date / Time ketorolac tromethamine Allergy Anaphylaxis Verified 11/03/16 12:42 [From Toradol] metoclopramide HCl Allergy Anaphylaxis Verified 11/03/16 12:42 [From Reglan] NSAIDS (Non-Steroidal Allergy Nausea & Verified 11/03/16 12:42 Anti-Inflamma Vomiting prochlorperazine edisylate Allergy Anaphylaxis Verified 11/03/16 12:42 [From Compazine] prochlorperazine maleate Allergy Anaphylaxis Verified 11/03/16 12:42 [From Compazine] Sulfa (Sulfonamide Allergy Rash/Hives Verified 11/03/16 12:42 Antibiotics) acetaminophen [From Tylenol] AdvReac Unknown Verified 11/03/16 12:42 Review of Systems ROS Statement: Those systems with pertinent positive or pertinent negative responses have been documented in the HPI. ROS Other: All systems not noted in ROS Statement are negative. 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 History of Any Multi-Drug Resistant Organisms: None Reported Date of last positivie culture/infection: None MDRO Source:: None Past Surgical History: Appendectomy, Back Surgery, Section, Cholecystectomy, Hysterectomy, Orthopedic Surgery, Tonsillectomy Additional Past Surgical History / Comment(s): Recent low back injections, past 4 low back surgery, cervical surgery, removal of basal cell carcinoma from the face, PICC lines since removed, R sided infusaport, BMAs with biopsy, R breast benign lumpectomy, D&C, EGD/colonoscopy Past Anesthesia/Blood Transfusion Reactions: No Reported Reaction Additional Past Anesthesia/Blood Transfusion Reaction / Comment(s): Pt received blood in 2008 without reaction. clausterphobia Past Psychological History: No Psychological Hx Reported Smoking Status: Former smoker Past Alcohol Use History: None Reported Past Drug Use History: None Reported - Past Family History Mother Family Medical History: Coronary Artery Disease (CAD) Father Family Medical History: Cancer Additional Family Medical History / Comment(s): father lung cancer General Exam - General Exam Comments Initial Comments: GENERAL: The patient is well nourished and well hydrated. VITAL SIGNS: Heart rate, blood pressure, respiratory rate reviewed as recorded in nurse's notes. EYES: Pupils are round and reactive. Extraocular movements are intact. No conjunctival / lid redness or swelling. ENT: No external evidence of injury, swelling, or ecchymosis. Airway is patent. Throat is clear. NECK: Nontender. No swelling or evidence of injury. No subcutaneous emphysema. Trachea is midline. No thyroid mass. HEART: Regular rate and rhythm. Good peripheral pulses. LUNGS/CHEST: Breath sounds clear and equal bilaterally. No rales, rhonchi, or wheezes. No ecchymosis, subcutaneous emphysema, or tenderness. ABDOMEN: There is mild diffuse abdominal tenderness noted. No palpable masses or organomegaly. No peritoneal signs. No abdominal wall swelling or ecchymosis. There is well-healing laparoscopic surgical scars without evidence of infection. EXTREMITIES: No extremity tenderness. Normal muscle tone and function. No thoracolumbar tenderness. NEUROLOGIC: Sensation is grossly intact. Cranial nerve exam reveals face is symmetrical, tongue is midline, speech is clear. SKIN: No abrasions or ecchymosis is noted. No induration or masses noted. PSYCHIATRIC: Alert and oriented. Appropriate behavior and judgment. Limitations: no limitations Course Vital Signs 11/03/16 11:30 Temperature 98.4 F Pulse Rate 81 Respiratory 20 Rate Blood Pressure 135/74 O2 Sat by Pulse 96 Oximetry Medical Decision Making - Medical Decision Making The patient was seen and examined. A mineral oil enema as well as some Colace and agrees him citrate is ordered. Zofran oral dissolving tablet is administered. The KUB x-ray shows increased amount of stool but no obstructive or acute process otherwise noted. The laboratory shows significant elevation of white blood cell count of 46,000 and this likely is due to her leukemia. This has trended upwards from previous comparisons. The remainder of labs are fairly unremarkable. She is refusing to take the magnesium citrate or mineral oil enema here. She does not want to take the medications here and then potentially have bowel movements in the emergency department. She states that she would prefer to go home and take the medications. These will be distributed to her to take home. She was informed of her results, particularly her elevated white blood cell count and is felt that she should've close follow- up with her oncologist. She is informed to please return if she changes her mind regarding further ER inpatient treatment. Return parameters are discussed and she leaves in no identifiable distress. - Lab Data Result diagrams: 11/03/16 11:55 11/03/16 11:55 Lab Results 11/03/16 11/03/16 11/03/16 Range/Units 11:55 11:55 11:55 WBC 46.5 H* (3.8-10.6) k/uL RBC 4.00 (3.80-5.40) m/uL Hgb 11.6 (11.4-16.0) gm/dL Hct 35.5 (34.0-46.0) % MCV 88.9 (80.0-100.0) fL MCH 29.1 (25.0-35.0) pg MCHC 32.8 (31.0-37.0) g/dL RDW 17.4 H (11.5-15.5) % Plt Count 237 (150-450) k/uL Neutrophils % (Manual) 6.0 % Lymphocytes % (Manual) 84.0 % Monocytes % (Manual) 9.0 % Eosinophils % (Manual) 1.0 % Neutrophils # (Manual) 2.8 (1.3-7.7) k/uL Lymphocytes # (Manual) 39.1 H (1.0-4.8) k/uL Monocytes # (Manual) 4.2 H (0-1.0) k/uL Eosinophils # (Manual) 0.5 (0-0.7) k/uL Nucleated RBCs 0 (0-0) /100 WBC Manual Slide Review Performed Hypochromasia Slight Poikilocytosis (manual Present Anisocytosis Slight PT 9.6 (9.0-12.0) sec INR 0.9 (<1.2) APTT 21.9 L (22.0-30.0) sec Sodium 141 (137-145) mmol/L Potassium 3.8 (3.5-5.1) mmol/L Chloride 106 (98-107) mmol/L Carbon Dioxide 26 (22-30) mmol/L Anion Gap 9 mmol/L BUN 11 (7-17) mg/dL Creatinine 0.75 (0.52-1.04) mg/dL Est GFR (MDRD) Af Amer >60 (>60 ml/min/1.73 sqM) Est GFR (MDRD) Non-Af >60 (>60 ml/min/1.73 sqM) Glucose 86 (74-99) mg/dL Calcium 9.5 (8.4-10.2) mg/dL Total Bilirubin 0.3 (0.2-1.3) mg/dL AST 73 H (14-36) U/L ALT 71 H (9-52) U/L Alkaline Phosphatase 176 H (38-126) U/L Total Protein 6.3 (6.3-8.2) g/dL Albumin 3.9 (3.5-5.0) g/dL Amylase <30 L (30-110) U/L Lipase 41 (23-300) U/L Urine Color Urine Appearance (Clear) Urine pH (5.0-8.0) Ur Specific [place] (1.001-1.035) Urine Protein (Negative) Urine Glucose (UA) (Negative) Urine Ketones (Negative) Urine Blood (Negative) Urine Nitrite (Negative) Urine Bilirubin (Negative) Urine Urobilinogen (<2.0) mg/dL Ur Leukocyte Esterase (Negative) Urine RBC (0-5) /hpf Urine WBC (0-5) /hpf Ur Squamous Epith Cells (0-4) /hpf Hyaline Casts (0-2) /lpf Urine Mucus (None) /hpf 11/03/ Range/Units 11:55 WBC (3.8-10.6) k/uL RBC (3.80-5.40) m/uL Hgb (11.4-16.0) gm/dL Hct (34.0-46.0) % MCV (80.0-100.0) fL MCH (25.0-35.0) pg MCHC (31.0-37.0) g/dL RDW (11.5-15.5) % Plt Count (150-450) k/uL Neutrophils % (Manual) % Lymphocytes % (Manual) % Monocytes % (Manual) % Eosinophils % (Manual) % Neutrophils # (Manual) (1.3-7.7) k/uL Lymphocytes # (Manual) (1.0-4.8) k/uL Monocytes # (Manual) (0-1.0) k/uL Eosinophils # (Manual) (0-0.7) k/uL Nucleated RBCs (0-0) /100 WBC Manual Slide Review Hypochromasia Poikilocytosis (manual Anisocytosis PT (9.0-12.0) sec INR (<1.2) APTT (22.0-30.0) sec Sodium (137-145) mmol/L Potassium (3.5-5.1) mmol/L Chloride (98-107) mmol/L Carbon Dioxide (22-30) mmol/L Anion Gap mmol/L BUN (7-17) mg/dL Creatinine (0.52-1.04) mg/dL Est GFR (MDRD) Af Amer (>60 ml/min/1.73 sqM) Est GFR (MDRD) Non-Af (>60 ml/min/1.73 sqM) Glucose (74-99) mg/dL Calcium (8.4-10.2) mg/dL Total Bilirubin (0.2-1.3) mg/dL AST (14-36) U/L ALT (9-52) U/L Alkaline Phosphatase (38-126) U/L Total Protein (6.3-8.2) g/dL Albumin (3.5-5.0) g/dL Amylase (30-110) U/L Lipase (23-300) U/L Urine Color Yellow Urine Appearance Clear (Clear) Urine pH 5.5 (5.0-8.0) Ur Specific [place] 1.018 (1.001-1.035) Urine Protein Trace H (Negative) Urine Glucose (UA) Negative (Negative) Urine Ketones Negative (Negative) Urine Blood Negative (Negative) Urine Nitrite Negative (Negative) Urine Bilirubin Negative (Negative) Urine Urobilinogen <2.0 (<2.0) mg/dL Ur Leukocyte Esterase Large H (Negative) Urine RBC 2 (0-5) /hpf Urine WBC 10 H (0-5) /hpf Ur Squamous Epith Cells <1 (0-4) /hpf Hyaline Casts 4 H (0-2) /lpf Urine Mucus Rare H (None) /hpf Disposition Clinical Impression: Constipation, Abdominal pain, Nausea and vomiting, Chronic pain syndrome, Leukocytosis, Leukemia Disposition: HOME SELF-CARE Condition: Good Instructions: Abdominal Pain (ED), Constipation (ED) Referrals: Memo Sun MD [Primary Care Provider] - 1-2 days Time of Disposition: 13:17
--- NOTE | 2016-11-03 12:23 | XR ---
EXAMINATION TYPE: XR KUB DATE OF EXAM: 11/03/2016 COMPARISON: NONE HISTORY: Pain TECHNIQUE: Single supine KUB image of the abdomen is obtained FINDINGS: Small bowel demonstrates no evidence for dilatation or air fluid levels. Gas and fecal material is seen in non-distended colon. No convincing evidence for pneumoperitoneum. No unusual calcifications. The lung bases are clear. Diffuse osseous disease. Postsurgical change lumbar spine. IMPRESSION: 1. Overall nonobstructive bowel gas pattern.
[2016-11-03 12:32] LABS: ALT 71 U/L (9-52); AST 73 U/L (14-36); Alkaline Phosphatase 176 U/L (38-126); Amylase <30 U/L (30-110); Anion Gap 9 mmol/L; Blood Urea Nitrogen 11 mg/dL (7-17); Calcium 9.5 mg/dL (8.4-10.2); Carbon Dioxide 26 mmol/L (22-30); Chloride 106 mmol/L (98-107); Glucose 86 mg/dL (74-99); Non-African American GFR(MDRD) >60 (>60 ml/min/1.73 sqM); Potassium 3.8 mmol/L (3.5-5.1); Sodium 141 mmol/L (137-145); Total Bilirubin 0.3 mg/dL (0.2-1.3); Total Protein 6.3 g/dL (6.3-8.2)
[2016-11-03 12:33] LABS: Appearance,Urine Clear (Clear); Bilirubin,Urine Negative (Negative); Glucose,Urine (UA) Negative (Negative); Ketones,Urine Negative (Negative); Leukocyte Esterase,Urine Large (Negative); Mucus,Urine Rare /hpf; Nitrite,Urine Negative (Negative); PH, Urine 5.5 (5.0-8.0); Particle Count 4706; Protein,Urine Trace (Negative); RBC,Urine 2 /hpf (0-5); Specific Gravity,Urine 1.018 (1.001-1.035); Squamous Epithelial Cell,Urine <1 /hpf (0-4); UA Billing (MACRO vs. MICRO) MICRO; Urobilinogen,Urine <2.0 mg/dL (<2.0); WBC,Urine 10 /hpf (0-5)
[2016-11-03 12:35] LABS: Anisocytosis Slight; Aty Lym Flag Marked; CH 28.2; HCT 35.5 % (34.0-46.0); HDW 3.23; HGB 11.6 gm/dL (11.4-16.0); Hypochromasia Slight; MCH 29.1 pg (25.0-35.0); MCHC 32.8 g/dL (31.0-37.0); MCV 88.9 fL (80.0-100.0); Mean Platelet Volume 7.6; RDW 17.4 % (11.5-15.5); WBC (Perox) 45.63
[2016-11-03 12:45] LABS: INR 0.9 (<1.2); Prothrombin Time 9.6 sec (9.0-12.0)
[2016-11-03 12:48] LABS: Add Differential Manual Differential; WBC 46.5 k/uL (3.8-10.6)
[2016-11-03 12:50] LABS: Manual Review Performed; Nucleated Red Blood Cells 0 /100 WBC (0-0); Total Cells Counted 100
[2016-11-03 12:54] LABS: Partial Thromboplastin Time 21.9 sec (22.0-30.0)
[2016-11-03 13:26] VITALS: BP 132/81; PULSE 77; TEMP 97.5
== END 2016-11-03 13:26 | disposition home or self-care (01) ==
LOC: EC 11:15
DX: K59.00 Constipation, unspecified (principal); C91.10 Chronic lymphocytic leukemia of B-cell type not having achieved remission; D72.829 Elevated white blood cell count, unspecified; R11.2 Nausea with vomiting, unspecified; R10.9 Unspecified abdominal pain; G89.4 Chronic pain syndrome; K21.9 Gastro-esophageal reflux disease without esophagitis; Z87.891 Personal history of nicotine dependence; Z79.899 Other long term (current) drug therapy; Z88.6 Allergy status to analgesic agent; Z88.8 Allergy status to other drugs, medicaments and biological substances; Z90.49 Acquired absence of other specified parts of digestive tract; Z98.890 Other specified postprocedural states; Z88.2 Allergy status to sulfonamides
CPT/HCPCS: 36415; 74000; 80053; 81001; 82150; 83690; 85025; 85610; 85730; 99284

== ENCOUNTER 2016-11-04 09:07 | Emergency (ER) | payer MEDICARE ==
[2016-11-04] MEDS ORDERED: ONDANSETRON 4 MG/2 ML VIAL IVP STA ×3 (09:29→14:55)
[2016-11-04] MEDS ORDERED: HYDROmorphone 1 MG/ML 1 ML SYRINGE IVP STA ×4 (09:29→14:55)
[2016-11-04] MEDS ORDERED: SODIUM CHLORIDE 0.9% 1,000 ML IV STA (09:29)
[2016-11-04] MEDS ORDERED: RX INFO: IV CONTRAST WAS GIVEN 1 EACH MISC MISCELLANE PRN (09:30)
--- NOTE | 2016-11-04 09:58 | ED ---
General Adult HPI <Ronnie Silverio - Last Filed: 11/04/16 12:33> - General Source: patient, RN notes reviewed Mode of arrival: wheelchair Limitations: no limitations <Rory Rivera - Last Filed: 11/04/16 15:40> - General Chief complaint: Abdominal Pain Stated complaint: constipation Time Seen by Provider: 11/04/16 09:22 - History of Present Illness Initial comments: Patient is a 61-year-old female status post cholecystectomy weeks, who presents emergency room today with a chief complaint of abdominal pain. Does admit that she was seen here the emergency room yesterday. States she did not want to do enema take medications here the emergency room so she went home with these. States she did take the medications has had no relief of the abdominal pain. Was unable to have bowel movement. States she's not pass gas no over the last 2 days. Patient states that she has had some symptoms of nausea and some vomiting. Does admit to increased abdominal pain going across the abdomen. Patient does admit to a history of chronic back pain as well which believes it has made the situation worse because if she tries to have a bowel movement she has increased pain in her back. She denies any other complaints or associated symptoms at this time. Patient denies any recent fever, chills, shortness of breath, chest pain, numbness or tingling, dysuria or hematuria, constipation or diarrhea, headaches or visual changes, or any other complaints. (Rory Rivera) - Related Data Home Medications Medication Instructions Recorded Confirmed Lisinopril-Hctz 20-25 mg 1 tab PO DAILY 10/16/16 11/04/16 [Zestoretic 20-25] Amitriptyline HCl [Elavil] 200 mg PO HS 11/04/16 11/04/16 Morphine Sulfate ER [Ms Contin 30 mg PO BID PRN 11/04/16 11/04/16 30Mg] Morphine Sulfate Ir [Msir] 15 mg PO TID PRN 11/04/16 11/04/16 oxyCODONE HCL 10 mg PO TID PRN 11/04/16 11/04/16 Previous Rx's Medication Instructions Recorded Pantoprazole Sodium [Protonix] 40 mg PO DAILY #30 tablet. 10/20/16 Hydrocodone/Acetaminophen [[place] 1 each PO Q6HR PRN #15 tab 11/04/16 5-325] Lactulose 10 gm PO DAILY 5 Days 11/04/16 Ondansetron Odt [Zofran ODT] 4 mg PO Q8HR PRN #20 tab 11/04/16 Allergies Allergy/AdvReac Type Severity Reaction Status Date / Time ketorolac tromethamine Allergy Anaphylaxis Verified 11/04/16 09:57 [From Toradol] metoclopramide HCl Allergy Anaphylaxis Verified 11/04/16 09:57 [From Reglan] NSAIDS (Non-Steroidal Allergy Nausea & Verified 11/04/16 09:57 Anti-Inflamma Vomiting prochlorperazine edisylate Allergy Anaphylaxis Verified 11/04/16 09:57 [From Compazine] prochlorperazine maleate Allergy Anaphylaxis Verified 11/04/16 09:57 [From Compazine] Sulfa (Sulfonamide Allergy Rash/Hives Verified 11/04/16 09:57 Antibiotics) acetaminophen [From Tylenol] AdvReac Unknown Verified 11/04/16 09:57 Review of Systems ROS Other: All systems not noted in ROS Statement are negative. <Ronnie Silverio - Last Filed: 11/04/16 12:33> ROS Other: All systems not noted in ROS Statement are negative. <Rory Rivera - Last Filed: 11/04/16 15:40> ROS Statement: Those systems with pertinent positive or pertinent negative responses have been documented in the HPI. 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 History of Any Multi-Drug Resistant Organisms: None Reported Date of last positivie culture/infection: None MDRO Source:: None Past Surgical History: Appendectomy, Back Surgery, Section, Cholecystectomy, Hysterectomy, Orthopedic Surgery, Tonsillectomy Additional Past Surgical History / Comment(s): Recent low back injections, past 4 low back surgery, cervical surgery, removal of basal cell carcinoma from the face, PICC lines since removed, R sided infusaport, BMAs with biopsy, R breast benign lumpectomy, D&C, EGD/colonoscopy Past Anesthesia/Blood Transfusion Reactions: No Reported Reaction Additional Past Anesthesia/Blood Transfusion Reaction / Comment(s): Pt received blood in 2008 without reaction. clausterphobia Past Psychological History: No Psychological Hx Reported Smoking Status: Former smoker Past Alcohol Use History: None Reported Past Drug Use History: None Reported - Past Family History Mother Family Medical History: Coronary Artery Disease (CAD) Father Family Medical History: Cancer Additional Family Medical History / Comment(s): father lung cancer <Rory Rivera - Last Filed: 11/04/16 15:40> General Exam <Ronnie Silverio - Last Filed: 11/04/16 12:33> Limitations: no limitations <Rory Rivera - Last Filed: 11/04/16 15:40> - General Exam Comments Initial Comments: General: The patient is awake and alert, in no distress, and does not appear acutely ill. Eye: Pupils are equal, round and reactive to light, extra-ocular movements are intact. No nystagmus. There is normal conjunctiva bilaterally. No signs of icterus. Ears, nose, mouth and throat: There are moist mucous membranes and no oral lesions. Neck: The neck is supple, there is no tenderness or JVD. Cardiovascular: There is a regular rate and rhythm. No murmur, rub or gallop is appreciated. Respiratory: Lungs are clear to auscultation, respirations are non-labored, breath sounds are equal. No wheezes, stridor, rales, or rhonchi. Gastrointestinal: Appears them. Bowel sounds. Abdomen soft on palpation. Mild tenderness in the lower abdomen both on left and right sides. No rebound tenderness. No guarding. No CVA tenderness. Musculoskeletal: Normal ROM, no tenderness. Strength 5/5. Sensation intact. Pulses equal bilaterally 2+. Neurological: A&O x 3. CN II-XII intact, There are no obvious motor or sensory deficits. Coordination appears grossly intact. Speech is normal. Skin: Skin is warm and dry and no rashes or lesions are noted. Psychiatric: Cooperative, appropriate mood & affect, normal judgment. (Rory Rivera) Medical Decision Making - Lab Data Result diagrams: 11/04/16 10:05 11/04/16 10:05 <Ronnie Silverio - Last Filed: 11/04/16 12:33> - Lab Data Result diagrams: 11/04/16 10:05 11/04/16 10:05 <Rory Rivera - Last Filed: 11/04/16 15:40> - Medical Decision Making 59-year-old female presenting with abdominal pain. Laboratory studies patient does have white blood cell count 57,000 this is elevated compared to labs drawn yesterday. CAT scan is also read as diffuse osseous metastases. These findings were discussed both with Dr. Delgado the patient's oncologist and Dr. Robertson the radiologist. Dr. Delgado is comfortable with the increase in her white blood cell count given a history of CLL, and Dr. Robertson compared findings on CT to CT obtained in 2013 and these osseous changes are stable. Patient will be given an enema and her abdominal pain will be reevaluated. ( Ronnie Silverio) Reexamined at this time shows no signs of distress. She is resting comfortably in the stretcher. Patient's labs been reviewed. As discussed and seen by attending physician Dr. Silverio. Was given a enema here in the emergency room is feeling better afterwards. Patient will be discharged home with laxative along with short prescription for pain medication. Also given nausea medication. Advised return to the emergency room symptoms increase worsen. Advised follow-up the family doctor over the next 2 days. (Rory Rivera) - Lab Data Lab Results 11/04/16 11/04/16 11/04/16 Range/Units 09:35 10:05 10:05 WBC 57.6 H* (3.8-10.6) k/uL RBC 3.83 (3.80-5.40) m/uL Hgb 11.2 L (11.4-16.0) gm/dL Hct 34.1 (34.0-46.0) % MCV 89.0 (80.0-100.0) fL MCH 29.3 (25.0-35.0) pg MCHC 32.9 (31.0-37.0) g/dL RDW 17.5 H (11.5-15.5) % Plt Count 227 (150-450) k/uL Neutrophils % (Manual) 22.5 % Lymphocytes % (Manual) 72.5 % Monocytes % (Manual) 3.0 % Eosinophils % (Manual) 2.0 % Neutrophils # (Manual) 13.0 H (1.3-7.7) k/uL Lymphocytes # (Manual) 41.8 H (1.0-4.8) k/uL Monocytes # (Manual) 1.7 H (0-1.0) k/uL Eosinophils # (Manual) 1.2 H (0-0.7) k/uL Nucleated RBCs 0 (0-0) /100 WBC Hypochromasia Slight Poikilocytosis (manual Present Anisocytosis Slight Sodium 140 (137-145) mmol/L Potassium 4.2 (3.5-5.1) mmol/L Chloride 106 (98-107) mmol/L Carbon Dioxide 25 (22-30) mmol/L Anion Gap 9 mmol/L BUN 13 (7-17) mg/dL Creatinine 0.70 (0.52-1.04) mg/dL Est GFR (MDRD) Af Amer >60 (>60 ml/min/1.73 sqM) Est GFR (MDRD) Non-Af >60 (>60 ml/min/1.73 sqM) Glucose 95 (74-99) mg/dL Calcium 9.5 (8.4-10.2) mg/dL Total Bilirubin 0.4 (0.2-1.3) mg/dL AST 86 H (14-36) U/L ALT 70 H (9-52) U/L Alkaline Phosphatase 158 H (38-126) U/L Total Protein 6.2 L (6.3-8.2) g/dL Albumin 3.8 (3.5-5.0) g/dL Amylase <30 L (30-110) U/L Lipase 39 (23-300) U/L Urine Color Yellow Urine Appearance Clear (Clear) Urine pH 6.0 (5.0-8.0) Ur Specific [place] 1.017 (1.001-1.035) Urine Protein Negative (Negative) Urine Glucose (UA) Negative (Negative) Urine Ketones Negative (Negative) Urine Blood Negative (Negative) Urine Nitrite Negative (Negative) Urine Bilirubin Negative (Negative) Urine Urobilinogen <2.0 (<2.0) mg/dL Ur Leukocyte Esterase Small H (Negative) Urine RBC <1 (0-5) /hpf Urine WBC 3 (0-5) /hpf Ur Squamous Epith Cells 1 (0-4) /hpf Urine Mucus Rare H (None) /hpf Disposition <MartRonnie harltey Tamar - Last Filed: 11/04/16 12:33> Time of Disposition: 15:38 <Ellen Riveraony - Last Filed: 11/04/16 15:40> Clinical Impression: Abdominal pain, Constipation, Leukemia, Leukocytosis Disposition: HOME SELF-CARE Condition: Good Instructions: Constipation (ED) Additional Instructions: Please use medication as discussed. Please follow-up with family doctor in the next 2 days of symptoms have not improved. Please return to emergency room if the symptoms increase or worsen or for any other concerns. Prescriptions: Hydrocodone/Acetaminophen [[place] 5-325] 1 each PO Q6HR PRN #15 tab PRN Reason: Pain Lactulose 10 gm PO DAILY 5 Days Ondansetron Odt [Zofran ODT] 4 mg PO Q8HR PRN #20 tab PRN Reason: Nausea Referrals: Memo Sun MD [Primary Care Provider] - 1-2 days
[2016-11-04 10:28] LABS: Anisocytosis Slight; Aty Lym Flag Marked; CH 28.7; CHCM 32.4; HCT 34.1 % (34.0-46.0); HDW 3.22; HGB 11.2 gm/dL (11.4-16.0); Hypochromasia Slight; MCH 29.3 pg (25.0-35.0); MCHC 32.9 g/dL (31.0-37.0); Mean Platelet Volume 7.7; RBC 3.83 m/uL (3.80-5.40); RDW 17.5 % (11.5-15.5); WBC (Perox) 55.18
[2016-11-04 10:42] LABS: WBC 57.6 k/uL (3.8-10.6)
[2016-11-04 10:45] LABS: ALT 70 U/L (9-52); AST 86 U/L (14-36); Alkaline Phosphatase 158 U/L (38-126); Amylase <30 U/L (30-110); Anion Gap 9 mmol/L; Blood Urea Nitrogen 13 mg/dL (7-17); Calcium 9.5 mg/dL (8.4-10.2); Carbon Dioxide 25 mmol/L (22-30); Chloride 106 mmol/L (98-107); Glucose 95 mg/dL (74-99); Non-African American GFR(MDRD) >60 (>60 ml/min/1.73 sqM); Potassium 4.2 mmol/L (3.5-5.1); Sodium 140 mmol/L (137-145); Total Bilirubin 0.4 mg/dL (0.2-1.3); Total Protein 6.2 g/dL (6.3-8.2)
[2016-11-04 11:00] LABS: Appearance,Urine Clear (Clear); Bilirubin,Urine Negative (Negative); Glucose,Urine (UA) Negative (Negative); Ketones,Urine Negative (Negative); Leukocyte Esterase,Urine Small (Negative); Mucus,Urine Rare /hpf; Nitrite,Urine Negative (Negative); Particle Count 2515; Protein,Urine Negative (Negative); RBC,Urine <1 /hpf (0-5); Specific Gravity,Urine 1.017 (1.001-1.035); Squamous Epithelial Cell,Urine 1 /hpf (0-4); UA Billing (MACRO vs. MICRO) MICRO; Urobilinogen,Urine <2.0 mg/dL (<2.0); WBC,Urine 3 /hpf (0-5)
[2016-11-04 11:06] LABS: Add Differential Manual Differential
[2016-11-04 11:08] LABS: Nucleated Red Blood Cells 0 /100 WBC (0-0); Total Cells Counted 200
--- NOTE | 2016-11-04 11:31 | CT ---
EXAMINATION TYPE: CT abdomen pelvis w con DATE OF EXAM: 11/04/2016 REFERENCE: Previous study dated 10/16/2016. HISTORY: Pain HISTORY: Constipation REFERENCE: NONE CT DLP: 1457.7 mGy Automated exposure control for dose reduction was used. TECHNIQUE: Helical acquisition through the abdomen and pelvis was obtained following the oral ingesti on of without Oral Contrast and following intravenous administration of 100 mL of Omnipaque 300. The data was reformatted in axial, coronal and sagittal projections. FINDINGS: There is dependent atelectasis at the lung bases. There is no pleural or pericardial fluid . The heart is not enlarged. There is a small hiatal hernia. Within the abdomen, the gallbladder has been removed. Liver and spleen appear normal there is a 4.5 m m calcification adjacent to or within the common hepatic duct. This is unchanged from previous. Both adrenal glands are normal. There is a stable 9.6 mm cystic lesion in the upper pole of the right kidney. The left kidney is norm al. The pancreas is unremarkable. There is some stable para-aortic and paracaval adenopathy. There is no iliac or inguinal adenopathy. The uterus is been removed. The bladder is unremarkable. There is diverticular change involving the sigmoid colon without radiographic evidence of diverticuli tis. The appendix is not visualized. Small bowel loops are normal. There is no free fluid and no free air. There is diffuse sclerotic metastases. There has been a previous interpedicular fusion at L3 and L5. IMPRESSION: 1. DIFFUSE OSSEOUS METASTASES. 2. MILD, UNCOMPLICATED DIVERTICULAR CHANGE INVOLVING THE SIGMOID COLON. 3. SMALL HIATAL HERNIA. 4. STABLE, 4.5 MM CALCIFICATION WITHIN OR ADJACENT TO THE COMMON HEPATIC DUCT. 5. STABLE PARACARDIAC AND PERICAVAL ADENOPATHY. 6. 9.6 MM CYST IN THE UPPER POLE OF THE RIGHT KIDNEY.
[2016-11-04 12:57] VITALS: RESP 16
[2016-11-04 16:08] VITALS: BP 154/112; PULSE 94; TEMP 98.4
== END 2016-11-04 16:06 | disposition home or self-care (01) ==
LOC: EC 09:07
DX: K59.00 Constipation, unspecified (principal); D72.829 Elevated white blood cell count, unspecified; R11.2 Nausea with vomiting, unspecified; I10 Essential (primary) hypertension; Z85.6 Personal history of leukemia; Z90.49 Acquired absence of other specified parts of digestive tract; Z87.19 Personal history of other diseases of the digestive system; Z85.828 Personal history of other malignant neoplasm of skin; Z87.891 Personal history of nicotine dependence; Z88.2 Allergy status to sulfonamides; Z88.6 Allergy status to analgesic agent; Z88.8 Allergy status to other drugs, medicaments and biological substances; Z79.899 Other long term (current) drug therapy
CPT/HCPCS: 99285; 96374; 96376 ×3; 96375; 36415; 80053; 82150; 83690; 85025; 81001; 87086; 74177; J2405; J1170; Q9967

== ENCOUNTER 2016-12-07 15:40 | Emergency (ER) | payer MEDICARE ==
[2016-12-07] MEDS ORDERED: RX INFO: IV CONTRAST WAS GIVEN 1 EACH MISC MISCELLANE PRN (17:27)
[2016-12-07] MEDS ORDERED: SODIUM CHLORIDE 0.9% 1,000 ML IV STA (17:27)
[2016-12-07] MEDS ORDERED: HYDROmorphone 1 MG/ML 1 ML SYRINGE IVP STA ×3 (17:27→21:08)
--- NOTE | 2016-12-07 17:56 | ED ---
Back Pain HPI - General Source: patient, RN notes reviewed, old records reviewed Limitations: no limitations <Kelly Valladares - Last Filed: 12/07/16 20:20> <Rory Rivera - Last Filed: 12/07/16 21:09> - General Chief Complaint: Back Pain/Injury Stated Complaint: Left Flank Pain Time Seen by Provider: 12/07/16 16:54 - History of Present Illness Initial Comments: This is a 61-year-old female presenting to emergency Department chief complaint of increased left upper quadrant and epigastric abdominal pain for one day.. Patient reports that this is similar pain which she had her gallbladder, but she reports that the gallbladder is removed and now is only in the left upper quadrant. Patient states she's had some chills but denies any specific fevers. Patient states that she feels nauseated. She reports that she had a bowel movement, denies any blood in her stool. She denies any urinary symptoms like blood in her urine or dysuria. She reports she has history of leukemia, and her were locales have always been elevated. Patient denies any history of sick contacts or travel. (Kelly Valladares) - Related Data Home Medications Medication Instructions Recorded Confirmed Lisinopril-Hctz 20-25 mg 1 tab PO DAILY 10/16/16 12/07/16 [Zestoretic 20-25] Amitriptyline HCl [Elavil] 200 mg PO HS 11/04/16 12/07/16 Morphine Sulfate ER [Ms Contin 30 mg PO BID PRN 11/04/16 12/07/16 30Mg] Morphine Sulfate Ir [Msir] 15 mg PO TID PRN 11/04/16 12/07/16 oxyCODONE HCL 10 mg PO TID PRN 11/04/16 12/07/16 Previous Rx's Medication Instructions Recorded Pantoprazole Sodium [Protonix] 40 mg PO DAILY #30 tablet. 10/20/16 Ondansetron Odt [Zofran ODT] 4 mg PO Q8HR PRN #20 tab 11/04/16 Allergies Allergy/AdvReac Type Severity Reaction Status Date / Time ketorolac tromethamine Allergy Anaphylaxis Verified 12/07/16 16:46 [From Toradol] metoclopramide HCl Allergy Anaphylaxis Verified 12/07/16 16:46 [From Reglan] NSAIDS (Non-Steroidal Allergy Nausea & Verified 12/07/16 16:46 Anti-Inflamma Vomiting prochlorperazine edisylate Allergy Anaphylaxis Verified 12/07/16 16:46 [From Compazine] prochlorperazine maleate Allergy Anaphylaxis Verified 12/07/16 16:46 [From Compazine] Sulfa (Sulfonamide Allergy Rash/Hives Verified 12/07/16 16:46 Antibiotics) acetaminophen [From Tylenol] AdvReac Unknown Verified 12/07/16 16:46 Review of Systems ROS Other: All systems not noted in ROS Statement are negative. <Kelly Valladares - Last Filed: 12/07/16 20:20> ROS Other: All systems not noted in ROS Statement are negative. <Rory Rivera - Last Filed: 12/07/16 21:09> ROS Statement: Those systems with pertinent positive or pertinent negative responses have been documented in the HPI. 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 History of Any Multi-Drug Resistant Organisms: None Reported Date of last positivie culture/infection: None MDRO Source:: None Past Surgical History: Appendectomy, Back Surgery, Section, Cholecystectomy, Hysterectomy, Orthopedic Surgery, Tonsillectomy Additional Past Surgical History / Comment(s): Recent low back injections, past 4 low back surgery, cervical surgery, removal of basal cell carcinoma from the face, PICC lines since removed, R sided infusaport, BMAs with biopsy, R breast benign lumpectomy, D&C, EGD/colonoscopy Past Anesthesia/Blood Transfusion Reactions: No Reported Reaction Additional Past Anesthesia/Blood Transfusion Reaction / Comment(s): Pt received blood in 2008 without reaction. clausterphobia Past Psychological History: No Psychological Hx Reported Smoking Status: Former smoker Past Alcohol Use History: None Reported Past Drug Use History: None Reported - Past Family History Mother Family Medical History: Coronary Artery Disease (CAD) Father Family Medical History: Cancer Additional Family Medical History / Comment(s): father lung cancer <Kelly Valladares - Last Filed: 12/07/16 20:20> General Exam Limitations: no limitations General appearance: alert, in no apparent distress Head exam: Present: atraumatic, normocephalic, normal inspection Eye exam: Present: normal appearance, PERRL, EOMI. Absent: scleral icterus, conjunctival injection, periorbital swelling ENT exam: Present: normal exam, mucous membranes moist Neck exam: Present: normal inspection. Absent: tenderness, meningismus, lymphadenopathy Respiratory exam: Present: normal lung sounds bilaterally. Absent: respiratory distress, wheezes, rales, rhonchi, stridor Cardiovascular Exam: Present: regular rate, normal rhythm, normal heart sounds. Absent: systolic murmur, diastolic murmur, rubs, gallop, clicks GI/Abdominal exam: Present: soft, tenderness (Significant Left upper quadrant tenderness, the patient is tender over all 4 quadrants.), normal bowel sounds. Absent: distended, guarding, rebound, rigid Extremities exam: Present: normal inspection, full ROM, normal capillary refill. Absent: tenderness, pedal edema, joint swelling, calf tenderness Back exam: Present: normal inspection Neurological exam: Present: alert, oriented X3, CN II-XII intact Psychiatric exam: Present: normal affect, normal mood Skin exam: Present: warm, dry, intact, normal color. Absent: rash <Kelly Valladares - Last Filed: 12/07/16 20:20> <Rory Rivera - Last Filed: 12/07/16 21:09> - General Exam Comments Initial Comments: Is a 61-year-old female. Patient is resting comfortably in bed. She doesn't appear to be in any acute distress. (Kelly Valladares) Medical Decision Making - Lab Data Result diagrams: 12/07/16 18:54 12/07/16 18:54 <Kelly Valladares - Last Filed: 12/07/16 20:20> - Lab Data Result diagrams: 12/07/16 18:54 12/07/16 18:54 <Rory Rivera - Last Filed: 12/07/16 21:09> - Medical Decision Making She is 59-year-old female chief complaint of increased left upper quadrant diffuse abdominal pain for the past day. Patient has a history of lymphoma. Patient is a slightly tender left upper quadrant but does have some rebound tenderness throughout the abdomen. To take a few hours to get blood work, patient given IV fluids and pain medication. Patient is receiving a CT abdomen and pelvis. At this time patient case will be transferred to JOE Zamora at 8 PM. (Kelly Valladares) 2106: Patient's CT the abdomen and pelvis has been reviewed and does show some adenopathy. Shows a normal spleen. Shows no acute findings to account for the patient's pain at this time. Patient's labs been reviewed does show an improvement of the white count from previous from a month ago. Patient does have a history of lymphoma. Patient at this time is resting comfortably. She does have pain medicine at home. She sees oncologist Dr. Delgado. At this time she feels comfortable following up with him tomorrow. Case was discussed in detail with attending physician . (Rory Rivera) - Lab Data Lab Results 12/07/16 12/07/16 12/07/16 Range/Units 18:26 18:54 18:54 WBC 46.4 H* (3.8-10.6) k/uL RBC 3.81 (3.80-5.40) m/uL Hgb 11.0 L (11.4-16.0) gm/dL Hct 35.3 (34.0-46.0) % MCV 92.6 (80.0-100.0) fL MCH 28.8 (25.0-35.0) pg MCHC 31.1 (31.0-37.0) g/dL RDW 19.2 H (11.5-15.5) % Plt Count 241 (150-450) k/uL Neutrophils % (Manual) 23 % Lymphocytes % (Manual) 76 % Monocytes % (Manual) 1 % Neutrophils # (Manual) 10.67 H (1.3-7.7) k/uL Lymphocytes # (Manual) 35.26 H (1.0-4.8) k/uL Monocytes # (Manual) 0.46 (0-1.0) k/uL Nucleated RBCs 0 (0-0) /100 WBC Hypochromasia Moderate Anisocytosis Slight PT 9.9 (9.0-12.0) sec INR 1.0 (<1.2) APTT 17.9 L (22.0-30.0) sec Sodium (137-145) mmol/L Potassium (3.5-5.1) mmol/L Chloride (98-107) mmol/L Carbon Dioxide (22-30) mmol/L Anion Gap mmol/L BUN (7-17) mg/dL Creatinine (0.52-1.04) mg/dL Est GFR (MDRD) Af Amer (>60 ml/min/1.73 sqM) Est GFR (MDRD) Non-Af (>60 ml/min/1.73 sqM) Glucose (74-99) mg/dL Calcium (8.4-10.2) mg/dL Total Bilirubin (0.2-1.3) mg/dL AST (14-36) U/L ALT (9-52) U/L Alkaline Phosphatase (38-126) U/L Total Protein (6.3-8.2) g/dL Albumin (3.5-5.0) g/dL Amylase (30-110) U/L Lipase (23-300) U/L Urine Color Yellow Urine Appearance Clear (Clear) Urine pH 7.0 (5.0-8.0) Ur Specific [place] 1.009 (1.001-1.035) Urine Protein Negative (Negative) Urine Glucose (UA) Negative (Negative) Urine Ketones 1+ H (Negative) Urine Blood Negative (Negative) Urine Nitrite Negative (Negative) Urine Bilirubin Negative (Negative) Urine Urobilinogen <2.0 (<2.0) mg/dL Ur Leukocyte Esterase Negative (Negative) 12/07/16 Range/Units 18:54 WBC (3.8-10.6) k/uL RBC (3.80-5.40) m/uL Hgb (11.4-16.0) gm/dL Hct (34.0-46.0) % MCV (80.0-100.0) fL MCH (25.0-35.0) pg MCHC (31.0-37.0) g/dL RDW (11.5-15.5) % Plt Count (150-450) k/uL Neutrophils % (Manual) % Lymphocytes % (Manual) % Monocytes % (Manual) % Neutrophils # (Manual) (1.3-7.7) k/uL Lymphocytes # (Manual) (1.0-4.8) k/uL Monocytes # (Manual) (0-1.0) k/uL Nucleated RBCs (0-0) /100 WBC Hypochromasia Anisocytosis PT (9.0-12.0) sec INR (<1.2) APTT (22.0-30.0) sec Sodium 138 (137-145) mmol/L Potassium 4.5 (3.5-5.1) mmol/L Chloride 108 H (98-107) mmol/L Carbon Dioxide 23 (22-30) mmol/L Anion Gap 7 mmol/L BUN 15 (7-17) mg/dL Creatinine 0.61 (0.52-1.04) mg/dL Est GFR (MDRD) Af Amer >60 (>60 ml/min/1.73 sqM) Est GFR (MDRD) Non-Af >60 (>60 ml/min/1.73 sqM) Glucose 104 H (74-99) mg/dL Calcium 8.8 (8.4-10.2) mg/dL Total Bilirubin 0.2 (0.2-1.3) mg/dL AST 35 (14-36) U/L ALT 50 (9-52) U/L Alkaline Phosphatase 126 (38-126) U/L Total Protein 5.5 L (6.3-8.2) g/dL Albumin 3.4 L (3.5-5.0) g/dL Amylase <30 L (30-110) U/L Lipase 39 (23-300) U/L Urine Color Urine Appearance (Clear) Urine pH (5.0-8.0) Ur Specific [place] (1.001-1.035) Urine Protein (Negative) Urine Glucose (UA) (Negative) Urine Ketones (Negative) Urine Blood (Negative) Urine Nitrite (Negative) Urine Bilirubin (Negative) Urine Urobilinogen (<2.0) mg/dL Ur Leukocyte Esterase (Negative) Disposition <Kelly Valladares - Last Filed: 12/07/16 20:20> Time of Disposition: 21:09 <Rory Rivera - Last Filed: 12/07/16 21:09> Clinical Impression: Chronic lymphocytic leukemia of B-cell type in remission, Abdominal pain Disposition: HOME SELF-CARE Condition: Good Instructions: Abdominal Pain (ED) Additional Instructions: Please use medication as discussed. Please follow-up with oncologist/family doctor tomorrow. Please return to emergency room if the symptoms increase or worsen or for any other concerns. Referrals: Memo Sun MD [Primary Care Provider] - 1-2 days
[2016-12-07] MEDS ORDERED: ONDANSETRON 4 MG/2 ML VIAL IVP STA (18:24)
[2016-12-07 18:35] LABS: Appearance,Urine Clear (Clear); Bilirubin,Urine Negative (Negative); Glucose,Urine (UA) Negative (Negative); Ketones,Urine 1+ (Negative); Leukocyte Esterase,Urine Negative (Negative); Nitrite,Urine Negative (Negative); Protein,Urine Negative (Negative); Specific Gravity,Urine 1.009 (1.001-1.035); UA Billing (MACRO vs. MICRO) CHEM; Urobilinogen,Urine <2.0 mg/dL (<2.0)
[2016-12-07 19:29] LABS: Anisocytosis Slight; Aty Lym Flag Moderate; CH 28.3; CHCM 30.7; HCT 35.3 % (34.0-46.0); HDW 3.12; Hypochromasia Moderate; MCH 28.8 pg (25.0-35.0); MCHC 31.1 g/dL (31.0-37.0); MCV 92.6 fL (80.0-100.0); Mean Platelet Volume 7.9; RBC 3.81 m/uL (3.80-5.40); RDW 19.2 % (11.5-15.5); WBC (Perox) 44.87
[2016-12-07 19:31] LABS: Prothrombin Time 9.9 sec (9.0-12.0)
[2016-12-07 19:41] LABS: ALT 50 U/L (9-52); AST 35 U/L (14-36); Alkaline Phosphatase 126 U/L (38-126); Amylase <30 U/L (30-110); Anion Gap 7 mmol/L; Blood Urea Nitrogen 15 mg/dL (7-17); Calcium 8.8 mg/dL (8.4-10.2); Carbon Dioxide 23 mmol/L (22-30); Chloride 108 mmol/L (98-107); Glucose 104 mg/dL (74-99); Non-African American GFR(MDRD) >60 (>60 ml/min/1.73 sqM); Potassium 4.5 mmol/L (3.5-5.1); Sodium 138 mmol/L (137-145); Total Bilirubin 0.2 mg/dL (0.2-1.3); Total Protein 5.5 g/dL (6.3-8.2)
[2016-12-07 19:46] LABS: WBC 46.4 k/uL (3.8-10.6)
[2016-12-07 19:48] LABS: Partial Thromboplastin Time 17.9 sec (22.0-30.0)
[2016-12-07 20:14] LABS: Add Differential Manual Differential
[2016-12-07 20:22] LABS: Nucleated Red Blood Cells 0 /100 WBC (0-0); Total Cells Counted 200
--- NOTE | 2016-12-07 20:54 | CT ---
EXAMINATION TYPE: CT abdomen pelvis w con DATE OF EXAM: 12/07/2016 COMPARISON: 11/04/2016 HISTORY: History of CLL. Left sided abdominal pain today. CT DLP: 1616.00 mGycm Automated exposure control for dose reduction was used. TECHNIQUE: Helical acquisition of images was performed from the lung bases through the pelvis. CONTRAST: Performed without Oral Contrast and with IV Contrast, patient injected with 100 mL of Omnipaque 300. FINDINGS: There is some patchy infiltrate and atelectasis at the posterior lung bases. There is no pleural effu laurie. Liver shows no focal defect. There is cholecystectomy. There are probably small air bubbles in the le ft hepatic duct. There is no pancreatic mass. Spleen appears normal. There is no adrenal mass. There is a 1.5 cm cortical cyst on the posterior right kidney. There is no hydronephrosis. There are a few abdominal pararectal lymph nodes that measure up to 1.2 cm.. There is no ascites. Bladder distends smoothly. I see no intestinal wall thickening. There are no dilated loo ps. There are spondylotic changes in the lumbar spine. There is osteosclerosis of all of the visualiz ed lumbar and sacral and thoracic vertebra. There is posterior fusion surgery in the mid lumbar spine . IMPRESSION: MINIMAL STABLE RETROPERITONEAL ADENOPATHY. STABLE RIGHT RENAL CORTICAL CYST. NO SIGN OF ACUTE ABDOMEN AND PELVIS. THERE IS INCREASED MILD INFILTRATE AND ATELECTASIS AT THE LUNG BASES COMPARED TO LAST EX AM.
[2016-12-07 21:07] VITALS: RESP 16
[2016-12-07 21:46] VITALS: BP 122/56; PULSE 64; TEMP 97.6
== END 2016-12-07 21:45 | disposition home or self-care (01) ==
LOC: EC 15:40
DX: C91.11 Chronic lymphocytic leukemia of B-cell type in remission (principal); I10 Essential (primary) hypertension; C44.310 Basal cell carcinoma of skin of unspecified parts of face; D75.9 Disease of blood and blood-forming organs, unspecified; R59.9 Enlarged lymph nodes, unspecified; D64.9 Anemia, unspecified; Z90.49 Acquired absence of other specified parts of digestive tract; Z90.710 Acquired absence of both cervix and uterus; Z87.891 Personal history of nicotine dependence; Z79.899 Other long term (current) drug therapy; Z88.2 Allergy status to sulfonamides; Z88.6 Allergy status to analgesic agent; Z88.8 Allergy status to other drugs, medicaments and biological substances
CPT/HCPCS: 99285 ×2; 96374 ×2; 96375 ×2; 96376 ×3; 96361 ×4; 36415; 80053; 82150; 83690; 85025; 85610; 85730; 81003; 74177; J2405; J1170; Q9967

== ENCOUNTER 2016-12-12 10:44 | Inpatient (IN) | payer MEDICARE ==
[2016-12-12] MEDS ORDERED: SODIUM CHLORIDE 0.9% 1,000 ML IV STA (10:56)
[2016-12-12] MEDS ORDERED: ONDANSETRON 4 MG/2 ML VIAL IVP STA (10:56)
[2016-12-12] MEDS ORDERED: PANTOPRAZOLE 40 MG/10 ML VIAL IVP STA (11:23)
[2016-12-12] MEDS ORDERED: MORPHINE SULFATE 4 MG/ML SYRINGE IVP STA ×2 (11:23→14:11)
--- NOTE | 2016-12-12 11:46 | ED ---
General Adult HPI - General Chief complaint: Nausea/Vomiting/Diarrhea Stated complaint: VOMITING,DIARRHEA Time Seen by Provider: 12/12/16 10:52 Source: patient, RN notes reviewed, old records reviewed Mode of arrival: wheelchair Limitations: no limitations - History of Present Illness Initial comments: This is a 61-year-old female ER for severe nausea vomiting. Patient states she feels pale, weak, fatigued. Nausea vomiting started this morning as progressively worsened. Patient has history of gallbladder surgery, history of appendix surgery. No history of bowel issues. She admits to diffuse generalized abdominal pain. Patient states she was in the ER about a week ago for similar abdominal pain. No blood in her vomit or blood in her stool [place] should no sick contacts or fevers. - Related Data Home Medications Medication Instructions Recorded Confirmed Lisinopril-Hctz 20-25 mg 1 tab PO DAILY 10/16/16 12/12/16 [Zestoretic 20-25] Amitriptyline HCl [Elavil] 200 mg PO HS 11/04/16 12/12/16 Morphine Sulfate ER [Ms Contin 30 mg PO BID PRN 11/04/16 12/12/16 30Mg] Morphine Sulfate Ir [Msir] 15 mg PO TID PRN 11/04/16 12/12/16 Hydrocodone/Acetaminophen [[place] 1 tab PO Q6HR PRN 12/12/16 12/12/16 5-325] Previous Rx's Medication Instructions Recorded Pantoprazole Sodium [Protonix] 40 mg PO DAILY #30 tablet. 10/20/16 Ondansetron Odt [Zofran ODT] 4 mg PO Q8HR PRN #20 tab 11/04/16 Allergies Allergy/AdvReac Type Severity Reaction Status Date / Time ketorolac tromethamine Allergy Anaphylaxis Verified 12/12/16 12:09 [From Toradol] metoclopramide HCl Allergy Anaphylaxis Verified 12/12/16 12:09 [From Reglan] NSAIDS (Non-Steroidal Allergy Nausea & Verified 12/12/16 12:09 Anti-Inflamma Vomiting prochlorperazine edisylate Allergy Anaphylaxis Verified 12/12/16 12:09 [From Compazine] prochlorperazine maleate Allergy Anaphylaxis Verified 12/12/16 12:09 [From Compazine] Sulfa (Sulfonamide Allergy Rash/Hives Verified 12/12/16 12:09 Antibiotics) acetaminophen [From Tylenol] AdvReac Unknown Verified 12/12/16 12:09 Review of Systems ROS Statement: Those systems with pertinent positive or pertinent negative responses have been documented in the HPI. ROS Other: All systems not noted in ROS Statement are negative. 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 History of Any Multi-Drug Resistant Organisms: None Reported Date of last positivie culture/infection: None MDRO Source:: None Past Surgical History: Appendectomy, Back Surgery, Section, Cholecystectomy, Hysterectomy, Orthopedic Surgery, Tonsillectomy Additional Past Surgical History / Comment(s): Recent low back injections, past 4 low back surgery, cervical surgery, removal of basal cell carcinoma from the face, PICC lines since removed, R sided infusaport, BMAs with biopsy, R breast benign lumpectomy, D&C, EGD/colonoscopy Past Anesthesia/Blood Transfusion Reactions: No Reported Reaction Additional Past Anesthesia/Blood Transfusion Reaction / Comment(s): Pt received blood in 2008 without reaction. clausterphobia Past Psychological History: No Psychological Hx Reported Smoking Status: Former smoker Past Alcohol Use History: None Reported Past Drug Use History: None Reported - Past Family History Mother Family Medical History: Coronary Artery Disease (CAD) Father Family Medical History: Cancer Additional Family Medical History / Comment(s): father lung cancer General Exam Limitations: no limitations General appearance: alert, in no apparent distress Head exam: Present: atraumatic, normocephalic, normal inspection Eye exam: Present: normal appearance, PERRL, EOMI. Absent: scleral icterus, conjunctival injection, periorbital swelling ENT exam: Present: normal exam, mucous membranes moist Neck exam: Present: normal inspection. Absent: tenderness, meningismus, lymphadenopathy Respiratory exam: Present: normal lung sounds bilaterally. Absent: respiratory distress, wheezes, rales, rhonchi, stridor Cardiovascular Exam: Present: regular rate, normal rhythm, normal heart sounds. Absent: systolic murmur, diastolic murmur, rubs, gallop, clicks GI/Abdominal exam: Present: soft, normal bowel sounds. Absent: distended, tenderness, guarding, rebound, rigid Extremities exam: Present: normal inspection, full ROM, normal capillary refill. Absent: tenderness, pedal edema, joint swelling, calf tenderness Back exam: Present: normal inspection Neurological exam: Present: alert, oriented X3, CN II-XII intact Psychiatric exam: Present: normal affect, normal mood Skin exam: Present: warm, dry, intact, normal color. Absent: rash Course Vital Signs 12/12/16 12/12/16 10:45 13:42 Temperature 97.4 F L 97.8 F Pulse Rate 75 70 Respiratory 17 18 Rate Blood Pressure 107/63 97/51 O2 Sat by Pulse 95 96 Oximetry - Reevaluation(s) Reevaluation #1: 12/12/16 14:14 Patient was difficult to access [place], difficult IV access secondary to significant medical history of CVA, patient having no improvement in symptoms at this time. EKG Findings - EKG Comments: EKG Findings:: EKG shows normal sinus rhythm rate of 87, AL 144, QRS 104, QTc 502 Medical Decision Making - Medical Decision Making 61 female with intractable pain [place] nausea vomiting and weakness. Patient will be admitted for symptom control. - Lab Data Result diagrams: 12/12/16 12:15 12/12/16 12:15 Lab Results 12/12/16 12/12/16 12/12/16 Range/Units 12:15 12:15 12:15 WBC 40.0 H* (3.8-10.6) k/uL RBC 4.08 (3.80-5.40) m/uL Hgb 11.6 (11.4-16.0) gm/dL Hct 37.4 (34.0-46.0) % MCV 91.8 (80.0-100.0) fL MCH 28.5 (25.0-35.0) pg MCHC 31.0 (31.0-37.0) g/dL RDW 19.4 H (11.5-15.5) % Plt Count 226 (150-450) k/uL Neutrophils % (Manual) 23 % Band Neutrophils % 2 % Lymphocytes % (Manual) 74 % Monocytes % (Manual) 2 % Neutrophils # (Manual) 10.00 H (1.3-7.7) k/uL Lymphocytes # (Manual) 29.60 H (1.0-4.8) k/uL Monocytes # (Manual) 0.80 (0-1.0) k/uL Nucleated RBCs 0 (0-0) /100 WBC Differential Comment Polychromasia Present Hypochromasia Moderate Anisocytosis Slight Sodium 139 (137-145) mmol/L Potassium 3.8 (3.5-5.1) mmol/L Chloride 110 H (98-107) mmol/L Carbon Dioxide 19 L (22-30) mmol/L Anion Gap 10 mmol/L BUN 26 H (7-17) mg/dL Creatinine 1.01 (0.52-1.04) mg/dL Est GFR (MDRD) Af Amer >60 (>60 ml/min/1.73 sqM) Est GFR (MDRD) Non-Af 56 (>60 ml/min/1.73 sqM) Glucose 158 H (74-99) mg/dL Calcium 8.5 (8.4-10.2) mg/dL Phosphorus 4.4 (2.5-4.5) mg/dL Magnesium 1.6 (1.6-2.3) mg/dL Total Bilirubin 0.3 (0.2-1.3) mg/dL AST 29 (14-36) U/L ALT 35 (9-52) U/L Alkaline Phosphatase 115 (38-126) U/L Total Creatine Kinase 44 (30-135) U/L CK-MB (CK-2) 0.7 (0.0-2.4) ng/mL CK-MB (CK-2) Rel Index 1.6 Troponin I <0.012 (0.000-0.034) ng/mL Total Protein 5.8 L (6.3-8.2) g/dL Albumin 3.7 (3.5-5.0) g/dL Lipase 53 (23-300) U/L - Radiology Data Radiology results: report reviewed (X-ray of abdominal series and chest to show adequate placement of Med-a-Port, no acute findings), image reviewed Disposition Clinical Impression: Chronic lymphocytic leukemia of B-cell type in remission, Leukocytosis, Abdominal pain, Dehydration, Nausea & vomiting Disposition: ADMITTED IP TO THIS HOSP Condition: Fair Referrals: Memo Sun MD [Primary Care Provider] - 1-2 days
[2016-12-12 12:26] LABS: Anisocytosis Slight; Aty Lym Flag Slight; CH 28.5; CHCM 31.3; HCT 37.4 % (34.0-46.0); HDW 3.28; HGB 11.6 gm/dL (11.4-16.0); Hypochromasia Moderate; MCH 28.5 pg (25.0-35.0); MCV 91.8 fL (80.0-100.0); Mean Platelet Volume 8.1; RBC 4.08 m/uL (3.80-5.40); RDW 19.4 % (11.5-15.5); WBC (Perox) 38.13
[2016-12-12 12:38] LABS: ALT 35 U/L (9-52); AST 29 U/L (14-36); Alkaline Phosphatase 115 U/L (38-126); Anion Gap 10 mmol/L; Blood Urea Nitrogen 26 mg/dL (7-17); Calcium 8.5 mg/dL (8.4-10.2); Carbon Dioxide 19 mmol/L (22-30); Chloride 110 mmol/L (98-107); Glucose 158 mg/dL (74-99); Magnesium 1.6 mg/dL (1.6-2.3); Non-African American GFR(MDRD) 56 (>60 ml/min/1.73 sqM); Phosphorous 4.4 mg/dL (2.5-4.5); Potassium 3.8 mmol/L (3.5-5.1); Sodium 139 mmol/L (137-145); Total Bilirubin 0.3 mg/dL (0.2-1.3); Total Protein 5.8 g/dL (6.3-8.2)
[2016-12-12 12:54] LABS: Creatine Kinase 44 U/L (30-135)
[2016-12-12 13:00] LABS: Add Differential Manual Differential
[2016-12-12 13:05] LABS: Band Neutrophils % 2 %; Nucleated Red Blood Cells 0 /100 WBC (0-0); Total Cells Counted 200
[2016-12-12 13:06] LABS: Creatine Kinase MB 0.7 ng/mL (0.0-2.4); Troponin I <0.012 ng/mL (0.000-0.034)
[2016-12-12 13:10] LABS: Polychromasia Present
--- NOTE | 2016-12-12 13:56 | XR ---
EXAMINATION TYPE: XR abdomen acute w cxr DATE OF EXAM: 12/12/2016 COMPARISON: 10/18/2016 HISTORY: Pain, nausea, vomiting TECHNIQUE: Acute abdominal series performed with supine and upright views the abdomen and supplementa l with a frontal chest. FINDINGS: Lung [place] are clear. Port is present on the right with the tip in the proximal right atri um. Normal bowel gas is present. Fixation rods and screws are present within the mid lumbar spine. Sc lerosis is through the osseous structures. No free air is evident. There are couple of air-fluid leve l within the right upper quadrant. Correlate for ileus. Partial small bowel obstruction could be cons idered. IMPRESSION: 1. Scattered air-fluid levels right upper quadrant small bowel loops. Partial small bowel obstructio n is not excluded. Ileus should be considered within the differential. 2. Diffuse sclerotic changes within the osseous structures suspicious for metastatic disease.
[2016-12-12] MEDS ORDERED: SODIUM CHLORIDE 0.9% 1,000 ML IV ONE (14:11)
[2016-12-12] MEDS ORDERED: diphenhydrAMINE 50 MG/ML 1 ML VIAL IVP STA (14:11)
[2016-12-12] MEDS ORDERED: diphenhydrAMINE 50 MG/ML 1 ML VIAL IVP PRN (14:11)
[2016-12-12 14:22] LABS: Prothrombin Time 9.8 sec (9.0-12.0)
[2016-12-12 14:41] LABS: Partial Thromboplastin Time 17.9 sec (22.0-30.0)
[2016-12-12 15:28] VITALS: BMI 33.3
[2016-12-12] MEDS ORDERED: SODIUM CHLORIDE 0.9% 500 ML IV ONE (15:57)
[2016-12-12] MEDS: ONDANSETRON 4 MG/2 ML VIAL IVP PRN (17:00)
[2016-12-12] MEDS: IOHEXOL 350 MG/ML 25 ML BOTTLE (ORAL USE) PO PRN ×2 (17:07→17:53)
[2016-12-12] MEDS: SODIUM CHLORIDE 0.9% 1,000 ML IV SCH ×2 (17:43→22:12)
[2016-12-12] MEDS: MORPHINE SULFATE 4 MG/ML SYRINGE IVP PRN ×2 (17:49→22:12)
[2016-12-12] MEDS: PIPERACILLIN-TAZOBACTAM 3.375 GM in DEXTROSE/WATER 1 50ML.BAG IVPB SCH ×2 (17:57→23:18)
--- NOTE | 2016-12-12 19:12 | CT ---
EXAMINATION TYPE: CT abdomen pelvis wo con DATE OF EXAM: 12/12/2016 COMPARISON: 12/07/2016 INDICATION: Severe Nausea and vomiting today DLP: 1057.5 mGycm, Automated exposure control for dose reduction was used. CONTRAST: 0 mL of Omnipaque 300. Study performed with Oral Contrast TECHNIQUE: Axial images were obtained from above the diaphragm to the pubic rami in the axial plane a t 5 mm thick sections. Reconstructed images are reviewed on the computer in the coronal plane. FINDINGS: Limited CT sections are obtained the lung bases. There is some compressive atelectasis within the patrice ng bases.. Reflux into the distal esophagus is evident. CT ABDOMEN: Liver: Normal Spleen: Normal Pancreas: Fatty infiltrated Adrenal glands: The adrenal glands are normal. Gallbladder: Surgically absent Kidneys: No masses are evident. No hydronephrosis is present. No cysts are present. No suspicious renal stones are evident. Aorta: Normal Inferior vena cava: Normal. CT PELVIS: No dilated loops of bowel are evident. Loops of bowel distended with oral contrast are normal. Oral c ontrast extends to the distal small bowel loops. Some residual contrast may be within the distal colo n. Fecal debris is through the colon with mild retention. Appendix: Not visualized, may be surgically absent. Urinary bladder: Normal. Genitourinary structures: Osseous structures: There appears to be diffuse sclerosis through the pelvis and within the vertebral column compatible with metastatic disease. IMPRESSIONS: 1. Diffuse osseous metastasis. 2. Mild compressive atelectasis lung bases. 3. Gastroesophageal reflux.
[2016-12-12 19:19] LABS: Appearance,Urine Clear (Clear); Bacteria,Urine Rare /hpf; Bilirubin,Urine Negative (Negative); Glucose,Urine (UA) Negative (Negative); Ketones,Urine Negative (Negative); Leukocyte Esterase,Urine Small (Negative); Mucus,Urine Rare /hpf; Nitrite,Urine Negative (Negative); PH, Urine 5.5 (5.0-8.0); Particle Count 2329; Protein,Urine Negative (Negative); Squamous Epithelial Cell,Urine <1 /hpf (0-4); UA Billing (MACRO vs. MICRO) MICRO; Urobilinogen,Urine <2.0 mg/dL (<2.0); WBC,Urine 3 /hpf (0-5)
[2016-12-13] MEDS: SODIUM CHLORIDE 0.9% 1,000 ML IV SCH ×5 (02:18→21:06)
[2016-12-13] MEDS: MORPHINE SULFATE 4 MG/ML SYRINGE IVP PRN ×4 (05:17→17:16)
[2016-12-13] MEDS: PIPERACILLIN-TAZOBACTAM 3.375 GM in DEXTROSE/WATER 1 50ML.BAG IVPB SCH ×3 (07:51→22:58)
[2016-12-13] MEDS: PANTOPRAZOLE 40 MG/10 ML VIAL IVP SCH (07:58)
[2016-12-13] MEDS: ENOXAPARIN 40 MG/0.4 ML SYRINGE SQ SCH (07:59)
--- NOTE | 2016-12-13 11:37 | P.GSCN ---
History of Present Illness Consult date: 12/13/16 Reason for Consult: Nausea, vomiting, diarrhea History of present illness: The patient is a 61-year-old female who was hospitalized in September for laparoscopic cholecystectomy. She had a retained common bile duct stone so subsequently underwent ERCP with sphincterotomy early October. She had been doing fairly well until yesterday. She had a sudden onset of nausea and vomiting along with diffuse abdominal pain. She also had diarrhea with multiple loose stools. The diarrhea is better today. The bowel movement was soft. No fevers or chills. She has no nausea today. She is hungry. She had some pain about a week ago and was worked up and things were unremarkable that time. No jaundice , tea-colored urine, acholic stool Review of Systems All systems: negative Past Medical History Past Medical History: Asthma, Blood Disorder, Cancer, COPD, GERD/Reflux, GI Bleed, Hypertension, Pneumonia, Seizure Disorder, Thyroid Disorder Additional Past Medical History / Comment(s): CLL, basal cell carcinoma, pt states she does not make gamma globulin and normally gets gammaglobulin infusions monthLy-HAD 3 WEEKS AGO, anemia, rectal bleed, diverticular dx, colitis, IBS, chronic back pain and R sided sciatica, pt states she has seizures and last seizure 10-15-16, bilateral tinnitis, migraines, UTIs, thyroid problem in past, 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 History of Any Multi-Drug Resistant Organisms: None Reported Year Discovered:: None MDRO Source:: None Past Surgical History: Appendectomy, Back Surgery, Section, Cholecystectomy, Hysterectomy, Orthopedic Surgery, Tonsillectomy Additional Past Surgical History / Comment(s): Recent low back injections, past 4 low back surgery, cervical surgery, removal of basal cell carcinoma from the face, PICC lines since removed, R sided infusaport, BMAs with biopsy, R breast benign lumpectomy, D&C, EGD/colonoscopy Past Anesthesia/Blood Transfusion Reactions: No Reported Reaction Additional Past Anesthesia/Blood Transfusion Reaction / Comm: Pt received blood in 2008 without reaction. clausterphobia Smoking Status: Former smoker - Past Family History Mother Family Medical History: Coronary Artery Disease (CAD) Father Family Medical History: Cancer Additional Family Medical History / Comment(s): father lung cancer Medications and Allergies Home Medications Medication Instructions Recorded Confirmed Type Lisinopril-Hctz 20-25 mg 1 tab PO DAILY 10/16/16 12/12/16 History [Zestoretic 20-25] Amitriptyline HCl [Elavil] 200 mg PO HS 11/04/16 12/12/16 History Morphine Sulfate ER [Ms Contin 30 mg PO BID PRN 11/04/16 12/12/16 History 30Mg] Morphine Sulfate Ir [Msir] 15 mg PO TID PRN 11/04/16 12/12/16 History Hydrocodone/Acetaminophen [[place] 1 tab PO Q6HR PRN 12/12/16 12/12/16 History 5-325] Allergies Allergy/AdvReac Type Severity Reaction Status Date / Time ketorolac tromethamine Allergy Anaphylaxis Verified 12/12/16 12:09 [From Toradol] metoclopramide HCl Allergy Anaphylaxis Verified 12/12/16 12:09 [From Reglan] NSAIDS (Non-Steroidal Allergy Nausea & Verified 12/12/16 12:09 Anti-Inflamma Vomiting prochlorperazine edisylate Allergy Anaphylaxis Verified 12/12/16 12:09 [From Compazine] prochlorperazine maleate Allergy Anaphylaxis Verified 12/12/16 12:09 [From Compazine] Sulfa (Sulfonamide Allergy Rash/Hives Verified 12/12/16 12:09 Antibiotics) acetaminophen [From Tylenol] AdvReac Unknown Verified 12/12/16 12:09 Surgical - Exam Osteopathic Statement: *. No significant issues noted on an osteopathic structural exam other than those noted in the History and Physical/Consult. Vital Signs Temp Pulse Resp BP Pulse Ox 97.4 F L 75 17 107/63 95 12/12/16 10:45 12/12/16 10:45 12/12/16 10:45 12/12/16 10:45 12/12/16 10:45 - General well developed, well nourished, no distress - Eyes normal ocular movement - ENT normal mucosa - Neck trachea midline - Respiratory normal respiratory effort, clear to auscultation - Cardiovascular Rhythm: regular - Abdomen Abdomen: soft, non tender, bowel sounds - Musculoskeletal She has some significant point tenderness to the ribs in the left upper quadrant on palpation. Reproduces the pain she has been having. - Psychiatric oriented to time, oriented to person, oriented to place, speech is normal, memory intact Results - Labs 12/12/16 12:15 12/12/16 12:15 Abnormal Lab Results - Last 24 Hours (Table) 12/12/16 12/12/16 12/12/16 Range/Units 12:15 12:15 13:58 WBC 40.0 H* (3.8-10.6) k/uL RDW 19.4 H (11.5-15.5) % Neutrophils # (Manual) 10.00 H (1.3-7.7) k/uL Lymphocytes # (Manual) 29.60 H (1.0-4.8) k/uL APTT 17.9 L (22.0-30.0) sec Chloride 110 H (98-107) mmol/L Carbon Dioxide 19 L (22-30) mmol/L BUN 26 H (7-17) mg/dL Glucose 158 H (74-99) mg/dL Total Protein 5.8 L (6.3-8.2) g/dL Ur Leukocyte Esterase (Negative) Urine Bacteria (None) /hpf Hyaline Casts (0-2) /lpf Urine Mucus (None) /hpf 12/12/16 Range/Units 18:00 WBC (3.8-10.6) k/uL RDW (11.5-15.5) % Neutrophils # (Manual) (1.3-7.7) k/uL Lymphocytes # (Manual) (1.0-4.8) k/uL APTT (22.0-30.0) sec Chloride (98-107) mmol/L Carbon Dioxide (22-30) mmol/L BUN (7-17) mg/dL Glucose (74-99) mg/dL Total Protein (6.3-8.2) g/dL Ur Leukocyte Esterase Small H (Negative) Urine Bacteria Rare H (None) /hpf Hyaline Casts 4 H (0-2) /lpf Urine Mucus Rare H (None) /hpf Microbiology - Last 24 Hours (Table) 12/12/16 18:00 Urine Culture - Preliminary Urine,Clean Catch Diabetes panel 12/12/16 Range/Units 12:15 Sodium 139 (137-145) mmol/L Potassium 3.8 (3.5-5.1) mmol/L Chloride 110 H (98-107) mmol/L Carbon Dioxide 19 L (22-30) mmol/L BUN 26 H (7-17) mg/dL Creatinine 1.01 (0.52-1.04) mg/dL Glucose 158 H (74-99) mg/dL Calcium 8.5 (8.4-10.2) mg/dL AST 29 (14-36) U/L ALT 35 (9-52) U/L Alkaline Phosphatase 115 (38-126) U/L Total Protein 5.8 L (6.3-8.2) g/dL Albumin 3.7 (3.5-5.0) g/dL Calcium panel 12/12/16 Range/Units 12:15 Calcium 8.5 (8.4-10.2) mg/dL Phosphorus 4.4 (2.5-4.5) mg/dL Albumin 3.7 (3.5-5.0) g/dL Pituitary panel 12/12/16 Range/Units 12:15 Sodium 139 (137-145) mmol/L Potassium 3.8 (3.5-5.1) mmol/L Chloride 110 H (98-107) mmol/L Carbon Dioxide 19 L (22-30) mmol/L BUN 26 H (7-17) mg/dL Creatinine 1.01 (0.52-1.04) mg/dL Glucose 158 H (74-99) mg/dL Calcium 8.5 (8.4-10.2) mg/dL Adrenal panel 12/12/16 Range/Units 12:15 Sodium 139 (137-145) mmol/L Potassium 3.8 (3.5-5.1) mmol/L Chloride 110 H (98-107) mmol/L Carbon Dioxide 19 L (22-30) mmol/L BUN 26 H (7-17) mg/dL Creatinine 1.01 (0.52-1.04) mg/dL Glucose 158 H (74-99) mg/dL Calcium 8.5 (8.4-10.2) mg/dL Total Bilirubin 0.3 (0.2-1.3) mg/dL AST 29 (14-36) U/L ALT 35 (9-52) U/L Alkaline Phosphatase 115 (38-126) U/L Total Protein 5.8 L (6.3-8.2) g/dL Albumin 3.7 (3.5-5.0) g/dL - Imaging CT scan - abdomen: report reviewed Assessment and Plan (1) Diarrhea Status: Acute (2) Abdominal pain Status: Acute (3) Nausea & vomiting Status: Acute (4) Chronic lymphocytic leukemia of B-cell type in remission Status: Chronic Plan: Her symptoms are much improved today. We will start her on a diet. Hemoccult stools. This is likely a self-limited issue. With regards to the rib pain, that can be treated with a nonsteroidal anti-inflammatory and warm packs. Consider outpatient treatment such as with her chiropractor
--- NOTE | 2016-12-13 11:42 | HP ---
CHIEF COMPLAINT: Nausea, vomiting and weakness. HISTORY OF PRESENT ILLNESS: This 61-year-old woman with a past history of chronic lymphocytic leukemia, history of COPD, history of GI bleed, history of asthma; being followed by . Patient not feeling well over the past couple of days. The patient has significant nausea and vomiting. Has diffuse abdominal pain. The patient also had abdominal pain previously and previous CAT scan was apparently normal. The patient's current WBCs are 40 and the patient is here for further evaluation and treatment. There is no history of any fever or rigors. No history of headache, loss of consciousness or seizures. PAST MEDICAL HISTORY: History of asthma, COPD, hypertension and pneumonia. HOME MEDICATIONS: 1. Protonix 40 mg p.o. daily. 2. Zofran 4 mg q8 p.r.n. 3. MS 15 mg t.i.d. p.r.n. 4. MS Contin 30 mg b.i.d. p.r.n. 5. Zestoretic one tablet p.o. 6. [place] one tablet q6 7. Elavil 200 mg q.h.s. ALLERGIES: KETORALAC, METOCLOPRAMIDE, NSAIDS, SULFA. FAMILY HISTORY: History of lung cancer in the family. SOCIAL HISTORY: Previous history of smoking. No history of current smoking or alcohol intake. REVIEW OF SYSTEMS: ENT: No diminished hearing or vision. CARDIOVASCULAR: No angina or palpitation. RESPIRATORY: As mentioned earlier. GI: As mentioned earlier. : As mentioned earlier. NERVOUS SYSTEM: No numbness. Generalized weakness. IMMUNOLOGY/ALLERGY: No asthma, hayfever. MUSCULOSKELETAL: As mentioned earlier. HEMATOLOGY: As mentioned earlier. ENDOCRINE: No history of diabetes or hypothyroidism. CONSTITUTIONAL: ntd. PSYCHIATRIC: As mentioned earlier. PHYSICAL EXAMINATION: Alert and oriented x3. Pulse 78, blood pressure 100/51, respirations 18, temperature 98, pulse ox 96% on room air. HEENT: Conjunctivae normal. Oral mucosa dry. NECK: No jugular venous distention. No thyroid enlargement, no lymph node enlargement. CARDIOVASCULAR: S1/.S2. RESPIRATIONS: Diminished breath sounds, especially at the bases. A few scattered rhonchi. No crackles. ABDOMEN: Soft. Mild diffuse discomfort to palpation. No guarding or rigidity. No mass palpable. LEGS: No edema, no swelling. NERVOUS SYSTEM: Higher function as mentioned. Moves all four limbs. No focal weakness. LYMPHATICS. No lymph node palpable in neck or axillae. SKIN: No rash. LABS: At this time CO2 is 19, white count is 40. ASSESSMENT: 1. Abdominal pain, nausea and vomiting, possible acute gastritis. 2. Chronic lymphocytic leukemia. 3. History of asthma/chronic obstructive pulmonary disease. 4. History of hypertension. 5. History of pneumonia. 6. History of degenerative joint disease. RECOMMENDATIONS AND DISCUSSION: This 61-year-old woman presented with multiple medical problems. We will monitor the patient closely, continue the current medication, continue symptomatic treatment. Otherwise, at this time I recommend to obtain cultures and broad spectrum IV antibiotics. Otherwise, obtain surgical evaluation and continue to monitor, IV fluid bolus. See orders for details. Prognosis guarded because of multiple complex medical issues. Further recommendations to follow. MTDD
[2016-12-13] MEDS: ONDANSETRON 4 MG/2 ML VIAL IVP PRN (14:06)
[2016-12-13] MEDS: AMITRIPTYLINE HCL 50 MG TAB PO SCH (19:44)
[2016-12-14] MEDS: MORPHINE SULFATE 4 MG/ML SYRINGE IVP PRN ×5 (02:11→18:29)
--- NOTE | 2016-12-14 07:29 | PN ---
DATE OF SERVICE: 12/13/2016 This 61-year-old woman who was admitted with abdominal pain, nausea, possibly acute gastritis, still complaining of abdominal pain. CAT scan showed diffuse lesions in the spine, which is rather chronic according to her. The patient also had history of CLL and Dr. Choe and Dr. Delgado is following the patient in the outpatient setting. PAST MEDICAL HISTORY: Reviewed. REVIEW OF SYSTEMS: CARDIOVASCULAR: No angina. RESPIRATORY: As mentioned. GI: As mentioned. : No dysuria. NERVOUS SYSTEM: No numbness or weakness. The current medications are reviewed and include: 1. Benadryl 25 mg q.6 p.r.n. 2. Lovenox. 3. Zofran. 4. Protonix. PHYSICAL EXAM: The patient is alert and oriented x3. Pulse 73, blood pressure 98/50, respirations 18, temperature 98.5, pulse ox 92% on room air. HEENT: Conjunctivae normal. NECK: No jugular venous distention. CARDIOVASCULAR: S1 and S2 muffled. RESPIRATORY: Breath sounds diminished at the bases. No rhonchi. No crackles. ABDOMEN: Soft. Mild diffuse tenderness. No mass palpable. LEGS: No edema, no swelling. NERVOUS SYSTEM: No focal deficits. Labs are at this time WBC 40, hemoglobin 11.6. Sodium 139, potassium 3.8. ASSESSMENT: 1. Abdominal pain, nausea, vomiting, possibly acute gastritis. 2. Chronic lymphocytic leukemia. 3. Diffuse skeletal lesions, rule out metastasis. 4. History of asthma, chronic obstructive pulmonary disease. 5. History of hypertension. 6. History of pneumonia. 7. History of degenerative joint disease. RECOMMENDATIONS AND DISCUSSION: Recommend to continue current medications. Continue symptomatic treatment. The patient had multiple evaluations including bone marrow several years ago. I would recommend to follow up closely with Dr. Choe regarding the abnormal CAT scan. Otherwise, continue the rest of the medications. Symptomatic treatment will be continued. Further recommendations to follow. MTDD
[2016-12-14] MEDS: SODIUM CHLORIDE 0.9% 1,000 ML IV SCH ×2 (07:56→20:27)
[2016-12-14] MEDS: PIPERACILLIN-TAZOBACTAM 3.375 GM in DEXTROSE/WATER 1 50ML.BAG IVPB SCH ×2 (07:56→16:47)
[2016-12-14] MEDS: ENOXAPARIN 40 MG/0.4 ML SYRINGE SQ SCH (07:56)
[2016-12-14] MEDS: PANTOPRAZOLE 40 MG/10 ML VIAL IVP SCH (07:56)
[2016-12-14] MEDS: MORPHINE SULFATE IR 15 MG TABLET PO PRN ×2 (08:07→20:25)
[2016-12-14] MEDS: predniSONE 10 MG TAB PO SCH (10:38)
[2016-12-14 10:50] LABS: Anisocytosis Slight; Aty Lym Flag Moderate; CH 27.7; CHCM 30.6; HCT 33.1 % (34.0-46.0); HDW 3.32; HGB 10.5 gm/dL (11.4-16.0); Hypochromasia Marked; MCHC 31.8 g/dL (31.0-37.0); MCV 91.1 fL (80.0-100.0); Mean Platelet Volume 7.6; RBC 3.63 m/uL (3.80-5.40); WBC (Perox) 29.86
[2016-12-14 11:08] LABS: Add Differential Manual Differential
[2016-12-14 11:12] LABS: Nucleated Red Blood Cells 1 /100 WBC (0-0); Total Cells Counted 200
[2016-12-14 11:13] LABS: WBC 30.3 k/uL (3.8-10.6)
[2016-12-14 12:30] LABS: Anion Gap 10 mmol/L; Blood Urea Nitrogen 14 mg/dL (7-17); Calcium 9.5 mg/dL (8.4-10.2); Carbon Dioxide 17 mmol/L (22-30); Glucose 90 mg/dL (74-99); Non-African American GFR(MDRD) >60 (>60 ml/min/1.73 sqM); Potassium 4.4 mmol/L (3.5-5.1); Sodium 148 mmol/L (137-145)
[2016-12-14 12:41] LABS: Chloride 121 mmol/L (98-107)
--- NOTE | 2016-12-14 13:22 | P.PN ---
Subjective 61-year-old female being seen on rounds this morning patient was seen on the by surgical service at the request of the attending patient who presented to the emergency room with a sudden onset of nausea vomiting along with diffuse abdominal pain. Currently this morning the patient states that she did eat a bowl of oatmeal tolerated there was no nausea. states has not had a bowel movement. Patient denied any fever chills. Patient states since being admitted does note an improvement less nauseated less abdominal pain. Patient is requesting to speak with the surgeon in the outpatient setting to be scheduled for a colonoscopy patient states it's been within 10 years when her last colonoscopy was done Patient was hospitalized in September for a laparoscopic cholecystectomy.by dr arguello Patient had a retained common bile duct stone subsequently underwent an ERCP with sphincterotomy in early October per dr brewer . Patient states that since she had a cholecystectomy done has had episodes of multiple loose stools with a decrease in appetite stool was negative for occult blood a CAT scan of the abdomen and pelvis in the emergency room with oral contrast the loops of the bowel were normal additionally the patient's current WBCs were in the 40s the patient does have a history of chronic lymphocytic leukemia in which she follows with Dr. Barfield Objective - Vital Signs Vital signs: Vital Signs Temp 98.5 F 12/14/16 07:00 Pulse 70 12/14/16 08:00 Resp 16 12/14/16 08:00 BP 135/72 12/14/16 07:00 Pulse Ox 98 12/14/16 07:00 Intake & Output 12/13/16 12/14/16 12/14/16 18:59 06:59 18:59 Intake Total 2900 1100 Balance 2900 1100 Intake: IV 300 Sodium Chloride 0.9% 1, 300 000 ml @ 100 mls/hr IV . Q10H ONE Rx#:[id number] Intake, IV Titration 1650 800 Amount Piperacillin-Tazobactam 3 50 .375 gm In Dextrose/Water 1 50ml.bag @ 12.5 mls/hr IVPB Q8HR MADELINE Rx#: [id number] Sodium Chloride 0.9% 1, 200 800 000 ml @ 100 mls/hr IV . Q10H MAD[facility]INE Rx#:[id number] Sodium Chloride 0.9% 1, 1400 000 ml @ 200 mls/hr IV . Q5H MADELINE Rx#:[id number] Oral 1250 Other: Voiding Method Bedside Commode Bedside Commode Bedside Commode # Voids 5 1 # Bowel Movements 0 - Exam Physical exam 61-year-old female sitting up in bed talkative cooperative oriented 3 states the nausea and abdominal pain have improved this morning has not had a bowel movement Lungs essentially clear with adequate air movement Heart S1-S2 audible regular Abdomen soft and not distended nontender bowel tones present reports no nausea vomiting Extremities no edema noted - Labs CBC & Chem 7: 12/14/16 10:17 12/14/16 10:17 Labs: Abnormal Lab Results - Last 24 Hours (Table) 12/14/16 12/14/16 Range/Units 10:17 10:17 WBC 30.3 H* (3.8-10.6) k/uL RBC 3.63 L (3.80-5.40) m/uL Hgb 10.5 L (11.4-16.0) gm/dL Hct 33.1 L (34.0-46.0) % RDW 19.0 H (11.5-15.5) % Lymphocytes # (Manual) 20.60 H (1.0-4.8) k/uL Monocytes # (Manual) 2.12 H (0-1.0) k/uL Eosinophils # (Manual) 0.91 H (0-0.7) k/uL Nucleated RBCs 1 H (0-0) /100 WBC Sodium 148 H (137-145) mmol/L Chloride 121 H* (98-107) mmol/L Carbon Dioxide 17 L (22-30) mmol/L Microbiology - Last 24 Hours (Table) 12/12/16 18:00 Urine Culture - Preliminary Urine,Clean Catch Gram Neg Bacilli 12/12/16 17:11 Blood Culture - Preliminary Blood No Growth after 24 hours 12/12/16 16:59 Blood Culture - Preliminary Blood No Growth after 24 hours Assessment and Plan Plan: Impression Chronic lymphocytic leukemia in remission follows Dr. Delgado Leukocytosis suspect due to chronic lymphocytic leukemia Present on admission abdominal pain nausea vomiting diarrhea likely self- limiting viral gastroenteritis Chronic lower back pain opiate dependency A recent laparoscopic cholecystectomy September 2016 A recent ERCP and sphincterotomy for retained common bile duct stone Plan No evidence of an acute surgical intervention indicated Follow-up on pending stool studies Diet to be advanced as tolerated DVT and GI prophylaxis Will be scheduled for an EGD and colonoscopy on December [address] arguello The above impression and plan of care have been discussed and directed by signing physician. Beverly Santillan nurse practitioner acting as scribe for signing physician.
[2016-12-14] MEDS: ONDANSETRON 4 MG/2 ML VIAL IVP PRN (13:50)
--- NOTE | 2016-12-14 17:56 | P.CONS ---
History of Present Illness - Reason for Consult Consult date: 12/14/16 CLL Requesting physician: Kvng [place] - Chief Complaint N,V, abd pain - History of Present Illness Mrs. Siegel is a very pleasant female pt of Dr. Delgado who was initially diagnosed with B-CLL diagnosed in 2007 in [place]. She had 1 cycle of cytoxan and fludarabine in 2011 with reduction in WBC from 58,000 to 8,000. She was then followed by Dr. Oseguera when she moved here. She travels a lot so she had a treatment for B-CLL in [facility] with Rituxan and Treanda in 2012, she had a good response and decided against continuing treatments. Pt was last seen in 2013 then, in October she came back to [facility] and was seen by Dr. Delgado. She was admitted for choleycystitis, she had lap choley and ERCP. Pt has history of diffuse sclerotic osseous involvement, first identified on CT 11/03/2013, felt to be related to B-CLL. She has a history of hypogammaglobenima and has had IVIG infusions, she has not had one locally since 2013, she states IVIG monthly, last dose from [place]. Pt states that 2 days ago she woke up feeling terrible and her symptoms just progressed. She had intractable nausea and vomiting, diarrhea, sweating and severe back pain. She denies headache, sore throat, productive cough, chest pain, lower extremity swelling, but her hands are swollen, denies abd pain, dysuria, bloody or mucus stool, hemorrhoids. She had fatigue and appetite is poor. Review of Systems 10 point ROS is as stated in HPI Past Medical History Past Medical History: Asthma, Blood Disorder, Cancer, COPD, GERD/Reflux, GI Bleed, Hypertension, Pneumonia, Seizure Disorder, Thyroid Disorder Additional Past Medical History / Comment(s): CLL, basal cell carcinoma, pt states she does not make gamma globulin and normally gets gammaglobulin infusions monthLy-HAD 3 WEEKS AGO, anemia, rectal bleed, diverticular dx, colitis, IBS, chronic back pain and R sided sciatica, pt states she has seizures and last seizure 10-15-16, bilateral tinnitis, migraines, UTIs, thyroid problem in past, 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 History of Any Multi-Drug Resistant Organisms: None Reported Year Discovered:: None MDRO Source:: None Past Surgical History: Appendectomy, Back Surgery, Section, Cholecystectomy, Hysterectomy, Orthopedic Surgery, Tonsillectomy Additional Past Surgical History / Comment(s): Recent low back injections, past 4 low back surgery, cervical surgery, removal of basal cell carcinoma from the face, PICC lines since removed, R sided infusaport, BMAs with biopsy, R breast benign lumpectomy, D&C, EGD/colonoscopy Past Anesthesia/Blood Transfusion Reactions: No Reported Reaction Additional Past Anesthesia/Blood Transfusion Reaction / Comm: Pt received blood in 2008 without reaction. clausterphobia Smoking Status: Former smoker - Past Family History Mother Family Medical History: Coronary Artery Disease (CAD) Father Family Medical History: Cancer Additional Family Medical History / Comment(s): father lung cancer Medications and Allergies Home Medications Medication Instructions Recorded Confirmed Type Lisinopril-Hctz 20-25 mg 1 tab PO DAILY 10/16/16 12/12/16 History [Zestoretic 20-25] Amitriptyline HCl [Elavil] 200 mg PO HS 11/04/16 12/12/16 History Morphine Sulfate ER [Ms Contin 30 mg PO BID PRN 11/04/16 12/12/16 History 30Mg] Morphine Sulfate Ir [Msir] 15 mg PO TID PRN 11/04/16 12/12/16 History Hydrocodone/Acetaminophen [[place] 1 tab PO Q6HR PRN 12/12/16 12/12/16 History 5-325] Allergies Allergy/AdvReac Type Severity Reaction Status Date / Time ketorolac tromethamine Allergy Anaphylaxis Verified 12/12/16 12:09 [From Toradol] metoclopramide HCl Allergy Anaphylaxis Verified 12/12/16 12:09 [From Reglan] NSAIDS (Non-Steroidal Allergy Nausea & Verified 12/12/16 12:09 Anti-Inflamma Vomiting prochlorperazine edisylate Allergy Anaphylaxis Verified 12/12/16 12:09 [From Compazine] prochlorperazine maleate Allergy Anaphylaxis Verified 12/12/16 12:09 [From Compazine] Sulfa (Sulfonamide Allergy Rash/Hives Verified 12/12/16 12:09 Antibiotics) acetaminophen [From Tylenol] AdvReac Unknown Verified 12/12/16 12:09 Physical Exam Vitals: Vital Signs Temp Pulse Resp BP Pulse Ox 12/14/16 14:44 98.1 F 78 16 128/82 98 12/14/16 08:00 70 16 12/14/16 07:00 98.5 F 70 16 135/72 98 12/13/16 21:35 98.2 F 73 16 109/55 92 L Intake and Output 12/14/16 12/14/16 12/14/16 06:59 14:59 22:59 Intake Total 800 Balance 800 Intake: Intake, IV Titration 800 Amount Sodium Chloride 0.9% 1, 800 000 ml @ 100 mls/hr IV . Q10H MADELINE Rx#:[id number] Other: Voiding Method Bedside Commode # Voids 1 - Constitutional General appearance: cooperative, mild distress, obese - EENT Eyes: anicteric sclerae, EOMI, normal appearance ENT: hearing grossly normal, normal oropharynx - Neck Neck: no lymphadenopathy - Respiratory Respiratory: bilateral: CTA - Cardiovascular Rhythm: regular Heart sounds: normal: S1, S2 Abnormal Heart Sounds: no systolic murmur, no diastolic murmur, no rub, no S3 Gallop, no S4 Gallop, no click, no other leg Peripheral Edema: bilateral: None - Gastrointestinal General gastrointestinal: no absent bowel sounds, no decreased bowel sounds, no distended, no hepatomegaly, no hyperactive bowel sounds, normal bowel sounds, no organomegaly, no rigid, no scaphoid, soft, splenomegaly, no tenderness, no umbilical hernia, no ventral hernia - Integumentary Integumentary: normal turgor, pale - Neurologic Neurologic: CNII-XII intact - Musculoskeletal pain elicited with palpation of spine T-11 to sacrum and across iliac crests bilaterally Musculoskeletal: generalized weakness, strength equal bilaterally - Psychiatric Psychiatric: A&O x's 3, appropriate affect, intact judgment & insight Results CBC & Chem 7: 12/14/16 10:17 12/14/16 10:17 Labs: Abnormal Lab Results - Last 24 Hours (Table) 12/14/16 12/14/16 Range/Units 10:17 10: WBC 30.3 H* (3.8-10.6) k/uL RBC 3.63 L (3.80-5.40) m/uL Hgb 10.5 L (11.4-16.0) gm/dL Hct 33.1 L (34.0-46.0) % RDW 19.0 H (11.5-15.5) % Lymphocytes # (Manual) 20.60 H (1.0-4.8) k/uL Monocytes # (Manual) 2.12 H (0-1.0) k/uL Eosinophils # (Manual) 0.91 H (0-0.7) k/uL Nucleated RBCs 1 H (0-0) /100 WBC Sodium 148 H (137-145) mmol/L Chloride 121 H* (98-107) mmol/L Carbon Dioxide 17 L (22-30) mmol/L Microbiology - Last 24 Hours (Table) 12/12/16 18:00 Urine Culture - Preliminary Urine,Clean Catch Gram Neg Bacilli 12/12/16 17:11 Blood Culture - Preliminary Blood No Growth after 24 hours 12/12/16 16:59 Blood Culture - Preliminary Blood No Growth after [address] scan - abdomen: report reviewed CT scan - pelvis: report reviewed Assessment and Plan (1) Chronic lymphocytic leukemia (CLL), B-cell Narrative/Plan: Pt WBC was 60 when checked a few weeks ago in the office by Dr. Delgado and he did recommend beginning treatment but pt refused-pt states she does not recall this conversation. I will inform Dr. Delgado that pt is considering treatment and sched a follow up appt to discuss the same. WBC is 40 today and stable for pt. No acute intervention. Status: Chronic (2) Back pain Narrative/Plan: The marrow changes from B-CLL are not the likely cause of pt pain in her back. She has history of chronic back pain and she has required steroid injections in the past, Ortho spine evaluation would be recommended for evaluation. Status: Acute (3) Hypogammaglobulinemia Narrative/Plan: Ig levels ordered for evaluation. Pt on monthly IVIG, last dose about 3 weeks ago. Status: Chronic (4) Anemia Narrative/Plan: Mild, related to B-CLL, no acute intervention needed. Status: Chronic (5) Abnormal bone radiograph Narrative/Plan: Case discussed with Dr. Delgado. The abnormal bone findings are r/t marrow changes from pt known B-CLL and not metastatsis. The appropriate therapy is treatment of B-CLL. Status: Chronic
[2016-12-14] MEDS: AMITRIPTYLINE HCL 50 MG TAB PO SCH (20:26)
[2016-12-14] MEDS: DEXTROSE 5% IN WATER 1,000 ML IV SCH (20:27)
[2016-12-15] MEDS: PIPERACILLIN-TAZOBACTAM 3.375 GM in DEXTROSE/WATER 1 50ML.BAG IVPB SCH ×4 (00:21→23:48)
[2016-12-15] MEDS: MORPHINE SULFATE 4 MG/ML SYRINGE IVP PRN ×5 (02:53→20:19)
[2016-12-15] MEDS: ENOXAPARIN 40 MG/0.4 ML SYRINGE SQ SCH (07:50)
[2016-12-15] MEDS: PANTOPRAZOLE 40 MG/10 ML VIAL IVP SCH (08:25)
[2016-12-15] MEDS: MORPHINE SULFATE IR 15 MG TABLET PO PRN (09:17)
[2016-12-15] MEDS: predniSONE 10 MG TAB PO SCH (09:17)
--- NOTE | 2016-12-15 11:10 | P.PN ---
Subjective Principal diagnosis: Patient states abdominal pain improved and able to retain meals. Patient scheduled for colonoscopy tomorrow. Had discussion with oncology is hopeful to restart treatment of the leukemia Objective - Vital Signs Vital signs: Vital Signs Temp 98.0 F 12/15/16 07:00 Pulse 75 12/15/16 07:00 Resp 16 12/15/16 07:22 BP 147/86 12/15/16 07:00 Pulse Ox 98 12/15/16 07:00 Intake & Output 12/14/16 12/15/16 12/15/16 18:59 06:59 18:59 Intake Total 50 1040 Balance 50 1040 Intake: Intake, IV Titration 50 450 Amount Dextrose 5% in Water 1, 400 000 ml @ 100 mls/hr IV . Q10H MADELINE Rx#:[id number] Piperacillin-Tazobactam 3 50 50 .375 gm In Dextrose/Water 1 50ml.bag @ 12.5 mls/hr IVPB Q8HR MADELINE Rx#: [id number] Oral 590 Other: Voiding Method Bedside Commode Bedside Commode Bedside Commode # Voids 3 1 - Constitutional General appearance: Present: mild distress - EENT EENT Comment(s): Patient noted to be developing haynes face on steroids chronically Eyes: Present: PERRLA Ears: bilateral: normal - Neck Neck: Present: normal ROM - Respiratory Respiratory: bilateral: CTA - Cardiovascular Rhythm: regular - Peripheral edema leg Peripheral Edema: bilateral: 1+ - Gastrointestinal General gastrointestinal: Present: soft - Integumentary Integumentary: Present: normal - Neurologic Neurologic: Present: CNII-XII intact - Musculoskeletal Musculoskeletal: Present: generalized weakness - Psychiatric Psychiatric: Present: A&O x's 3, appropriate affect, intact judgment & insight - Labs CBC & Chem 7: 12/14/16 10:17 12/14/16 10:17 Labs: Abnormal Lab Results - Last 24 Hours (Table) 12/14/16 12/14/16 Range/Units 10:17 10:17 WBC 30.3 H* (3.8-10.6) k/uL Lymphocytes # (Manual) 20.60 H (1.0-4.8) k/uL Monocytes # (Manual) 2.12 H (0-1.0) k/uL Eosinophils # (Manual) 0.91 H (0-0.7) k/uL Nucleated RBCs 1 H (0-0) /100 WBC Sodium 148 H (137-145) mmol/L Chloride 121 H* (98-107) mmol/L Carbon Dioxide 17 L (22-30) mmol/L Microbiology - Last 24 Hours (Table) 12/12/16 17:11 Blood Culture - Preliminary Blood No Growth after 48 hours 12/12/16 16:59 Blood Culture - Preliminary Blood No Growth after 48 hours 12/12/16 18:00 Urine Culture - Final Urine,Clean Catch Escherichia coli - Imaging and Cardiology CT scan - abdomen: report reviewed Assessment and Plan Plan: Assessment Abdominal pain nausea vomiting diarrhea Urinary tract infection and Zosyn History of asthma COPD stable History of hypertension Chronic low back pain Anemia secondary to B-CLL Chronic lymphocytic leukemia Plan Continue consultation with surgery colonoscopy planned for tomorrow Continue consultation with oncology regarding leukemia
[2016-12-15] MEDS ORDERED: PEG 3350-NA SULF,BICARB,CL/KCL 4,000 ML BOTTLE PO ONE ×2 (14:00→16:00)
[2016-12-15] MEDS: DEXTROSE 5% IN WATER 1,000 ML IV SCH ×2 (14:13→20:17)
--- NOTE | 2016-12-15 14:23 | P.PN ---
Subjective 61-year-old female being seen on rounds. Currently is up ambulating in the room. Patient is aware of the plan of care. Patient is scheduled for colonoscopy and EGD tomorrow per Dr. Arguello as part of workup for the abdominal pain. Patient states able to take some for diet states feeling less nauseated. Patient plans on following up with Dr. Barfield to restart treatment of leukemia. Patient also is asking to have the MediPort reevaluated in the outpatient setting Objective - Vital Signs Vital signs: Vital Signs Temp 98.0 F 12/15/16 07:00 Pulse 75 12/15/16 07:00 Resp 16 12/15/16 07:22 BP 147/86 12/15/16 07:00 Pulse Ox 98 12/15/16 07:00 Intake & Output 12/14/16 12/15/16 12/15/16 18:59 06:59 18:59 Intake Total 50 1040 Balance 50 1040 Intake: Intake, IV Titration 50 450 Amount Dextrose 5% in Water 1, 400 000 ml @ 100 mls/hr IV . Q10H MAD[facility]INE Rx#:[id number] Piperacillin-Tazobactam 3 50 50 .375 gm In Dextrose/Water 1 50ml.bag @ 12.5 mls/hr IVPB Q8HR MADELINE Rx#: [id number] Oral 590 Other: Voiding Method Bedside Commode Bedside Commode Bedside Commode # Voids 3 1 - Exam Physical exam 61-year-old female sitting up in bed talkative cooperative oriented 3 states less nausea discomfort Lungs essentially clear with adequate air movement Heart S1-S2 audible regular Abdomen soft and not distended nontender bowel tones present reports no nausea vomiting Extremities no edema noted - Labs CBC & Chem 7: 12/14/16 10:17 12/14/16 10:17 Labs: Microbiology - Last 24 Hours (Table) 12/12/16 17:11 Blood Culture - Preliminary Blood No Growth after 48 hours 12/12/16 16:59 Blood Culture - Preliminary Blood No Growth after 48 hours 12/12/16 18:00 Urine Culture - Final Urine,Clean Catch Escherichia coli Assessment and Plan Plan: Impression Chronic lymphocytic leukemia in remission follows Dr. Delgado Leukocytosis suspect due to chronic lymphocytic leukemia Present on admission abdominal pain nausea vomiting diarrhea likely self- limiting viral gastroenteritis Chronic lower back pain opiate dependency A recent laparoscopic cholecystectomy September 2016 A recent ERCP and sphincterotomy for retained common bile duct stone Plan Clear liquid diet all prepped be started for the colonoscopy scheduled tomorrow DVT and GI prophylaxis Will be scheduled for an EGD and colonoscopy on December [address] arguello The above impression and plan of care have been discussed and directed by signing physician. Beverly Santillan nurse practitioner acting as scribe for signing physician.
[2016-12-15] MEDS: ONDANSETRON 4 MG/2 ML VIAL IVP PRN (16:00)
--- NOTE | 2016-12-15 16:47 | P.PN ---
Subjective Principal diagnosis: intractable pain, nausea and vomiting Pt seen today in follow up, she continues to generally fell unwell, back pain, lack of energy. No fever, SOB, vomiting or diarrhea today. Objective - Vital Signs Vital signs: Vital Signs Temp 98.1 F 12/15/16 15:00 Pulse 78 12/15/16 15:00 Resp 18 12/15/16 15:00 BP 144/95 12/15/16 15:00 Pulse Ox 98 12/15/16 15:00 Intake & Output 12/14/16 12/15/16 12/15/16 18:59 06:59 18:59 Intake Total 50 1040 750 Balance 50 1040 750 Intake: Intake, IV Titration 50 450 750 Amount Dextrose 5% in Water 1, 400 000 ml @ 100 mls/hr IV . Q10H MAD[facility]INE Rx#:[id number] Piperacillin-Tazobactam 3 50 50 50 .375 gm In Dextrose/Water 1 50ml.bag @ 12.5 mls/hr IVPB Q8HR MADELINE Rx#: [id number] Sodium Chloride 0.9% 1, 700 000 ml @ 100 mls/hr IV . Q10H MADELINE Rx#:[id number] Oral 590 Other: Voiding Method Bedside Commode Bedside Commode Bedside Commode # Voids 3 1 - Exam WD, obese female laying in bed, NAD, respirations even and unlabored, pt can move independently in the bed, no leg swelling noted - Labs CBC & Chem 7: 12/14/16 10:17 12/14/16 10:17 Labs: Microbiology - Last 24 Hours (Table) 12/12/16 17:11 Blood Culture - Preliminary Blood No Growth after 48 hours 12/12/16 16:59 Blood Culture - Preliminary Blood No Growth after 48 hours 12/12/16 18:00 Urine Culture - Final Urine,Clean Catch Escherichia coli Assessment and Plan (1) Chronic lymphocytic leukemia (CLL), B-cell Narrative/Plan: Dr. Delgado is recommending starting treatment for CLL, pt did verbalize understanding. Appt for f/u has been documented in chart, pt appt will be moved up if there are any cancellations in his schedule. Pt is aware of appt. All questions answered to the best of my ability. Status: Chronic (2) Back pain Narrative/Plan: Pthas history of back pain, she has received steroid injections in the past. There is no evidence in the imaging that there are any compression fractures or sequela r/t chronic leukemia so we will defer pain management to Attending. Pt should follow up with her Orthopedic for evaluation and treatment. Status: Acute (3) Hypogammaglobulinemia Narrative/Plan: Awaiting Ig results to see if IVIg infusion appropriate Status: Chronic (4) Anemia Narrative/Plan: Chronic, Hgb stable, no transfusion Status: Chronic (5) Abnormal bone radiograph Narrative/Plan: Case reviewed with Dr. Delgado, the sclerotic look of the bones is due to chronic leukemia marrow changes. Bisphosphonate therapy is NOT indicated, rather treatment of the underlying CLL. This was reviewed with pt and she did verbalize understanding. Status: Chronic
--- NOTE | 2016-12-15 19:23 | P.PN ---
Progress Note - Text Patient originally presented to [facility] for further evaluation for intractable nausea and vomiting, diarrhea, swelling, and severe back pain. She's has been seen and examined by Dr. Ribeiro in general surgery who is currently planning for an EEG and colonoscopy to be performed tomorrow. Consultation has been placed for us for further evaluation for low back pain. Patient does have a history of beta cell CLL. She has continue to follow with . She has been seen and examined by Cari JAFFE while in the hospital. Per her note, patient has a history of diffuse sclerotic osseous involvement first identified on CT on 11/03/2013 felt to be related to beta cell CLL. Oncology does not feel the marrow changes from the beta cell CLL are the cause of her current back pain. She was seen and examined in the outpatient setting a few weeks ago by Dr. Delgado as well who recommended beginning further treatment for the beta cell CLL but patient declined at that time. CT of the abdomen and pelvis taken on 12/12/2016 showed evidence of diffuse osseous metastasis and evidence of lumbar hardware from previous lumbar fusion from approximately L2-4. Patient has been discussed with Dr. Sreekanth Soliman in detail. At this time, we're not currently complaining for acute surgical intervention as Dr. Sreekanth Soliman is currently out of town and will not return until 12/22/2016. At this time, it would be appropriate to have the patient follow-up in the outpatient setting for further evaluation and to discuss possible treatment. If she starts to experience significant acute symptoms in which there indications for further invasive treatment or evaluation in regards to her lumbar spine, we recommend she be transferred to a tertiary facility for further evaluation and care. At this time, we will sign off on the patient and she will be clear for discharge from an orthopedic spine standpoint and we'll plan to have her follow up in outpatient setting for further evaluation and discuss possible treatment in approximately 2-3 weeks.
[2016-12-15] MEDS: AMITRIPTYLINE HCL 50 MG TAB PO SCH (20:19)
[2016-12-16] MEDS: MORPHINE SULFATE 4 MG/ML SYRINGE IVP PRN ×4 (03:33→17:56)
[2016-12-16] MEDS ORDERED: MAGNESIUM CITRATE 296 ML BOTTLE PO ONE (04:45)
[2016-12-16] MEDS: DEXTROSE 5% IN WATER 1,000 ML IV SCH ×4 (07:09→16:25)
[2016-12-16] MEDS: MORPHINE SULFATE IR 15 MG TABLET PO PRN ×2 (07:45→16:22)
[2016-12-16] MEDS: PANTOPRAZOLE 40 MG/10 ML VIAL IVP SCH (09:44)
[2016-12-16] MEDS: PIPERACILLIN-TAZOBACTAM 3.375 GM in DEXTROSE/WATER 1 50ML.BAG IVPB SCH ×2 (09:57→16:25)
[2016-12-16] MEDS: ENOXAPARIN 40 MG/0.4 ML SYRINGE SQ SCH ×2 (10:01→13:00)
--- NOTE | 2016-12-16 10:44 | P.PN ---
Subjective Principal diagnosis: Patient sitting up in bed is doing prep for upper GI colonoscopy scheduled today at 2 PM. I consultation with Dr. Orozco regarding questionable of lumbar metastatic disease Objective - Vital Signs Vital signs: Vital Signs Temp 98.4 F 12/16/16 07:00 Pulse 58 L 12/16/16 07:00 Resp 16 12/16/16 07:00 BP 138/79 12/16/16 07:00 Pulse Ox 92 L 12/16/16 07:00 Intake & Output 12/15/16 12/16/16 12/16/16 18:59 06:59 18:59 Intake Total 750 1398.0 Balance 750 1398.0 Intake: Intake, IV Titration 750 808.0 Amount Dextrose 5% in Water 1, 800 000 ml @ 100 mls/hr IV . Q10H [facility]INE Rx#:[id number] Piperacillin-Tazobactam 3 50 8.0 .375 gm In Dextrose/Water 1 50ml.bag @ 12.5 mls/hr IVPB Q8HR [facility]AD[facility]INE Rx#: [id number] Sodium Chloride 0.9% 1, 700 000 ml @ 100 mls/hr IV . Q10H MADELINE Rx#:[id number] Oral 590 Other: Voiding Method Bedside Commode Bedside Commode Toilet Bedside Commode # Voids 1 1 # Bowel Movements 3 - Constitutional General appearance: Present: obese - EENT Eyes: Present: PERRLA Ears: bilateral: normal - Respiratory Respiratory: bilateral: CTA - Cardiovascular Rhythm: regular - Gastrointestinal General gastrointestinal: Present: soft - Integumentary Integumentary: Present: normal - Neurologic Neurologic: Present: CNII-XII intact - Musculoskeletal Musculoskeletal: Present: generalized weakness - Psychiatric Psychiatric: Present: A&O x's 3, appropriate affect, intact judgment & insight - Labs CBC & Chem 7: 12/14/16 10:17 12/14/16 10:17 Labs: Microbiology - Last 24 Hours (Table) 12/12/16 17:11 Blood Culture - Preliminary Blood No Growth after 72 hours 12/12/16 16:59 Blood Culture - Preliminary Blood No Growth after 72 hours Assessment and Plan Plan: Assessment Abdominal pain with nausea and vomiting and diarrhea Urinary tract infection Chronic lymphocytic leukemia Chronic lumbar pain diffuse sclerotic osseous involvement has seen Dr. Nichole in the past History of asthma COPD stable History of hypertension Plan Continue consultation with oncology Outpatient follow-up with Dr. Orozco regarding possible metastatic disease to lumbar region EGD and colonoscopy scheduled for today
[2016-12-16] MEDS: predniSONE 10 MG TAB PO SCH (12:59)
[2016-12-16] MEDS: ONDANSETRON 4 MG/2 ML VIAL IVP PRN (13:18)
[2016-12-16] MEDS ORDERED: IMMUNE GLOBULIN (HUMAN-IGG) 1 GM/10 ML VIAL IV ONE (17:42)
[2016-12-16] MEDS ORDERED: PEG 3350-NA SULF,BICARB,CL/KCL 4,000 ML BOTTLE PO ONE (18:00)
[2016-12-16] MEDS ORDERED: IMMUNE GLOBULIN (HUMAN-IGG) 5 GM in EMPTY BAG 1 BAG IV ONE (18:30)
[2016-12-16] MEDS ORDERED: IMMUNE GLOBULIN (HUMAN-IGG) 20 GM in EMPTY BAG 1 BAG IV ONE (18:30)
[2016-12-16] MEDS: AMITRIPTYLINE HCL 50 MG TAB PO SCH (20:51)
[2016-12-17] MEDS: PIPERACILLIN-TAZOBACTAM 3.375 GM in DEXTROSE/WATER 1 50ML.BAG IVPB SCH ×4 (01:14→23:41)
[2016-12-17] MEDS: MORPHINE SULFATE 4 MG/ML SYRINGE IVP PRN ×5 (02:30→20:38)
[2016-12-17] MEDS: ONDANSETRON 4 MG/2 ML VIAL IVP PRN (02:30)
[2016-12-17] MEDS: DEXTROSE 5% IN WATER 1,000 ML IV SCH ×2 (07:02→07:49)
[2016-12-17] MEDS: PANTOPRAZOLE 40 MG/10 ML VIAL IVP SCH (07:49)
[2016-12-17] MEDS: predniSONE 10 MG TAB PO SCH (07:49)
[2016-12-17 10:57] LABS: Anisocytosis Slight; Aty Lym Flag Moderate; CH 27.6; CHCM 31.1; HCT 30.8 % (34.0-46.0); HDW 3.29; HGB 9.8 gm/dL (11.4-16.0); Hypochromasia Moderate; MCH 28.5 pg (25.0-35.0); MCHC 31.9 g/dL (31.0-37.0); MCV 89.1 fL (80.0-100.0); RBC 3.46 m/uL (3.80-5.40); RDW 18.8 % (11.5-15.5); WBC (Perox) 33.49
[2016-12-17 11:02] LABS: WBC 36.1 k/uL (3.8-10.6)
[2016-12-17 11:18] LABS: ALT 48 U/L (9-52); AST 37 U/L (14-36); Alkaline Phosphatase 141 U/L (38-126); Anion Gap 8 mmol/L; Blood Urea Nitrogen 6 mg/dL (7-17); Calcium 8.7 mg/dL (8.4-10.2); Carbon Dioxide 31 mmol/L (22-30); Chloride 103 mmol/L (98-107); Glucose 112 mg/dL (74-99); Non-African American GFR(MDRD) >60 (>60 ml/min/1.73 sqM); Potassium 3.7 mmol/L (3.5-5.1); Sodium 142 mmol/L (137-145); Total Bilirubin 0.3 mg/dL (0.2-1.3); Total Protein 6.1 g/dL (6.3-8.2)
[2016-12-17 11:51] LABS: Add Differential Manual Differential
[2016-12-17 11:54] LABS: Myelocytes % 1 %; Nucleated Red Blood Cells 0 /100 WBC (0-0); Polychromasia Present; Total Cells Counted 200
[2016-12-17] MEDS ORDERED: IV FLUID CONTINUATION 1,000 ML IV ONE (12:52)
--- NOTE | 2016-12-17 12:52 | P.PN ---
Subjective Principal diagnosis: Patient was unable to have upper GI and colonoscopy yesterday secondary to incomplete prep. Continues to complain of diffuse abdominal pain Objective - Vital Signs Vital signs: Vital Signs Temp 98.4 F 12/17/16 07:00 Pulse 73 12/17/16 07:00 Resp 16 12/17/16 07:00 BP 154/88 12/17/16 07:00 Pulse Ox 93 L 12/17/16 07:00 Intake & Output 12/16/16 12/17/16 12/17/16 18:59 06:59 18:59 Intake Total 65.416 Output Total 1 Balance 65.416 -1 Weight 91 kg Intake: Intake, IV Titration 65.416 Amount Immune Globulin (Human- 15.416 IgG) 5 gm In Empty Bag 1 bag @ Titrate IV .Q0M ONE Rx#:[id number] Piperacillin-Tazobactam 3 50 .375 gm In Dextrose/Water 1 50ml.bag @ 12.5 mls/hr IVPB Q8HR MADELINE Rx#: [id number] Output: Stool 1 Other: Voiding Method Toilet Toilet Toilet Bedside Commode Bedside Commode Bedside Commode # Voids 2 # Bowel Movements 5 3 2 - Constitutional General appearance: Present: obese - EENT Eyes: Present: PERRLA Ears: bilateral: normal - Neck Neck: Present: normal ROM - Respiratory Respiratory: bilateral: CTA - Cardiovascular Rhythm: regular - Gastrointestinal General gastrointestinal: Present: soft Localized gastrointestinal: tender: diffuse - Neurologic Neurologic: Present: CNII-XII intact - Musculoskeletal Musculoskeletal: Present: gait normal - Psychiatric Psychiatric: Present: A&O x's 3, appropriate affect, intact judgment & insight - Labs CBC & Chem 7: 12/17/16 10:40 12/17/16 10:40 Labs: Abnormal Lab Results - Last 24 Hours (Table) 12/17/16 12/17/16 Range/Units 10:40 10:40 WBC 36.1 H* (3.8-10.6) k/uL RBC 3.46 L (3.80-5.40) m/uL Hgb 9.8 L (11.4-16.0) gm/dL Hct 30.8 L (34.0-46.0) % RDW 18.8 H (11.5-15.5) % Lymphocytes # (Manual) 29.96 H (1.0-4.8) k/uL Monocytes # (Manual) 1.44 H (0-1.0) k/uL Myelocytes # (Manual) 0.36 H (0) k/uL Carbon Dioxide 31 H (22-30) mmol/L BUN 6 L (7-17) mg/dL Glucose 112 H (74-99) mg/dL AST 37 H (14-36) U/L Alkaline Phosphatase 141 H (38-126) U/L Total Protein 6.1 L (6.3-8.2) g/dL Microbiology - Last 24 Hours (Table) 12/12/16 17:11 Blood Culture - Preliminary Blood No Growth after 96 hours 12/12/16 16:59 Blood Culture - Preliminary Blood No Growth after 96 hours Assessment and Plan Plan: Assessment Abdominal pain nausea vomiting possible acute gastritis/diarrhea UTI on Zosyn Chronic lymphocytic leukemia History of asthma COPD stable Chronic lumbar pain showing diffuse sclerotic osseous involvement Anemia chronic related to B-CLL History hypertension Chronic lumbar pain opiate dependent Plan Upper GI and colonoscopy continue follow-up with oncology and surgery
[2016-12-17] MEDS ORDERED: LIDOCAINE 1% INJ 10MG/ML (20 ML MDV) ONE (12:58)
[2016-12-17] MEDS ORDERED: PROPOFOL 10 MG/ML 20 ML VIAL IV ONE (12:58)
[2016-12-17] MEDS ORDERED: GLUCAGON 1 MG/ML VIAL ONE (12:58)
--- NOTE | 2016-12-17 13:29 | P.OP ---
Date of Procedure: 12/17/16 Preoperative Diagnosis: Nausea, vomiting, abdominal pain Postoperative Diagnosis: Mild antral gastritis Hiatal hernia Mild diverticulosis Procedure(s) Performed: EGD Colonoscopy Implants: Anesthesia: MAC Surgeon: Alex Ribeiro Pathology: other (Antrum, esophagus) Condition: stable Disposition: PACU Indications for Procedure: Operative Findings: Description of Procedure: The patient's placed on the endoscopy table in the lateral position. She received IV sedation. The gastroscope placed oropharynx passed in the esophagus into the stomach. The scope was then placed through the pylorus. The first and second portion of the duodenum appeared normal. Scope was then brought back the antrum and this appeared mildly inflamed. A biopsies was performed. Scope was then retroflexed and the remainder stomach appeared normal. There was a moderate size hiatal hernia. The GE junction was at 40 cm. The distal esophagus appeared mildly inflamed a biopsies performed. The proximal esophagus appeared normal. Scope was withdrawn for patient. Next digital rectal exam was performed which revealed no abnormalities. Flexible colonoscope was then placed patient anus and passed throughout the entire colon. The ileocecal valve was visualized. The cecum, ascending and transverse colon appeared normal. In the descending; was mild diverticular changes. The scope was then brought back the rectum and this appeared normal. Scope was withdrawn for patient.
--- NOTE | 2016-12-17 16:19 | P.PN ---
Subjective Date of service 12/14/2016 Progress note being dictated for Dr. Washington. Interval history: This a 61-year-old female admitted with abdominal pain, nausea vomiting, possible acute gastritis in a patient with chronic lymphocytic leukemia, diffuse skeletal lesions, ruling out metastasis and multiple other medical issues. Ambulating in room, complaining of unrelieved chronic back pain. Denies nausea, vomiting. Tolerating clear liquids. Been scheduled for inpatient EGD and colonoscopy-date pending. Urine culture pending. Denies chest pain, palpitations or increasing shortness of breath. Objective - Vital Signs Vital signs: Vital Signs Temp 98.1 F 12/14/16 14:44 Pulse 78 12/14/16 16:00 Resp 16 12/14/16 16:00 BP 128/82 12/14/16 14:44 Pulse Ox 98 12/14/16 14:44 Intake & Output 12/13/16 12/14/16 12/14/16 18:59 06:59 18:59 Intake Total 2900 1100 50 Balance 2900 1100 50 Intake: IV 300 Sodium Chloride 0.9% 1, 300 000 ml @ 100 mls/hr IV . Q10H [facility] Rx#:[id number] Intake, IV Titration 1650 800 50 Amount Piperacillin-Tazobactam 3 50 50 .375 gm In Dextrose/Water 1 50ml.bag @ 12.5 mls/hr IVPB Q8HR [facility] Rx#: [id number] Sodium Chloride 0.9% 1, 200 800 000 ml @ 100 mls/hr IV . Q10H [facility] Rx#:[id number] Sodium Chloride 0.9% 1, 1400 000 ml @ 200 mls/hr IV . Q5H [facility] Rx#:[id number] Oral 1250 Other: Voiding Method Bedside Commode Bedside Commode Bedside Commode # Voids 5 1 # Bowel Movements 0 - Exam PHYSICAL EXAM: VITAL SIGNS: [As above] GENERAL: [Sitting up in bed, no acute distress] HEENT: Pupils equal, Conjunctivae normal. Oral mucosa moist. NECK: No JVD. No thyroid enlargement. No LNs CARDIOVASCULAR: S1, S2 muffled. No murmur RESPIRATION: Breath sounds diminished in the bases. No rhonchi or crackles. No bronchial breathing. ABDOMEN: Soft, mild diffuse tenderness, no mass palpable. Positive bowel sounds. No guarding, no rigidity LEGS: No edema. no swelling NERVOUS SYSTEM: Cranial N 2-12 grossly normal. Moves all 4 limbs. Diffuse weakness. No focal deficits. Skin: no ulcer no rash Joints: No active swelling. No inflammation. - Labs CBC & Chem 7: 12/17/16 10:40 12/17/16 10:40 Labs: Abnormal Lab Results - Last 24 Hours (Table) 12/14/16 12/14/16 Range/Units 10:17 10:17 WBC 30.3 H* (3.8-10.6) k/uL RBC 3.63 L (3.80-5.40) m/uL Hgb 10.5 L (11.4-16.0) gm/dL Hct 33.1 L (34.0-46.0) % RDW 19.0 H (11.5-15.5) % Lymphocytes # (Manual) 20.60 H (1.0-4.8) k/uL Monocytes # (Manual) 2.12 H (0-1.0) k/uL Eosinophils # (Manual) 0.91 H (0-0.7) k/uL Nucleated RBCs 1 H (0-0) /100 WBC Sodium 148 H (137-145) mmol/L Chloride 121 H* (98-107) mmol/L Carbon Dioxide 17 L (22-30) mmol/L Microbiology - Last 24 Hours (Table) 12/12/16 18:00 Urine Culture - Preliminary Urine,Clean Catch Gram Neg Bacilli 12/12/16 17:11 Blood Culture - Preliminary Blood No Growth after 24 hours 12/12/16 16:59 Blood Culture - Preliminary Blood No Growth after 24 hours Assessment and Plan Plan: 1. Abdominal pain, nausea, vomiting, possible acute gastritis. 2. [ Chronic lymphocytic leukemia]. 3. [ Diffuse skeletal lesions, ruling out metastasis]. 4. [ COPD, chronic intermittent asthma]. 5. [ Hypertension]. 6. [ Degenerative joint disease]. 7. Possible acute UTI, culture pending. Plan: Continue on current medication regime ,monitoring and symptomatic treatment. Urine culture pending. EGD and colonoscopy pending .Further recommendations pending from oncology. Dr. Soliman, orthopedic spine surgeon consulted regarding chronic unrelieved back pain. Prognosis guarded given multiple complex medical issues. Further recommendations to follow. The impression and plan of care has been dictated as directed as a scribe. Dr.: I performed a H&P examination of this patient and discussed the same with the dictator. I agree with the dictator's note. Any additional findings/opinions/ etc. will be noted.
[2016-12-17] MEDS: ENOXAPARIN 40 MG/0.4 ML SYRINGE SQ SCH (17:44)
[2016-12-17] MEDS: MORPHINE SULFATE ER 30 MG TABLET PO SCH (18:15)
[2016-12-17] MEDS: AMITRIPTYLINE HCL 50 MG TAB PO SCH (20:41)
[2016-12-17] MEDS ORDERED: MORPHINE SULFATE ER 30 MG TABLET PO SCH (21:00)
[2016-12-17] MEDS: LISINOPRIL-HCTZ 20-25 MG 1 EACH TAB PO SCH (21:49)
[2016-12-18] MEDS: MORPHINE SULFATE 4 MG/ML SYRINGE IVP PRN (05:14)
[2016-12-18] MEDS: MORPHINE SULFATE ER 30 MG TABLET PO SCH (06:32)
[2016-12-18 07:33] VITALS: BP 165/95; PULSE 70; RESP 16; TEMP 98.3
[2016-12-18 07:45] LABS: Anion Gap 6 mmol/L; Blood Urea Nitrogen 6 mg/dL (7-17); Calcium 8.8 mg/dL (8.4-10.2); Carbon Dioxide 31 mmol/L (22-30); Chloride 106 mmol/L (98-107); Glucose 96 mg/dL (74-99); Non-African American GFR(MDRD) >60 (>60 ml/min/1.73 sqM); Potassium 3.2 mmol/L (3.5-5.1); Sodium 143 mmol/L (137-145)
[2016-12-18] MEDS: PIPERACILLIN-TAZOBACTAM 3.375 GM in DEXTROSE/WATER 1 50ML.BAG IVPB SCH (07:45)
[2016-12-18] MEDS: PANTOPRAZOLE 40 MG/10 ML VIAL IVP SCH (07:45)
[2016-12-18] MEDS: predniSONE 10 MG TAB PO SCH (07:46)
[2016-12-18] MEDS: ENOXAPARIN 40 MG/0.4 ML SYRINGE SQ SCH (07:46)
[2016-12-18] MEDS: LISINOPRIL-HCTZ 20-25 MG 1 EACH TAB PO SCH (07:46)
[2016-12-18] MEDS ORDERED: Potassium Replacement Protocol 1 EACH MISC MISCELLANE PRN (09:43)
[2016-12-18] MEDS ORDERED: CIPROFLOXACIN HCL 500 MG TAB PO SCH (10:00)
[2016-12-18] MEDS: POTASSIUM CHLORIDE ER 20 MEQ TAB.ER PO SCH ×2 (12:28→13:12)
--- NOTE | 2016-12-18 14:46 | P.DS ---
Providers Date of admission: 12/12/16 14:14 Attending physician: Memo Sun Consults: 12/12/16 15:59 Consult Physician Routine Consulting Provider: Alex Ribeiro Consult Reason/Comments: abdominal pain Do you want consulting provider notified?: Yes 12/13/16 11:08 Consult Physician Routine Consulting Provider: Lobo Choe Consult Reason/Comments: malignancy Do you want consulting provider notified?: Yes Primary care physician: Memo Sun Hospital Course: Date of service 12/18/2016. Final diagnosis 1. Abdominal pain nausea vomiting possible acute gastritis. 2. Chronic lymphocytic leukemia. 3. Diffuse skeletal lesions possibly secondary to chronic lymphatic leukemia per Dr. Delgado no evidence of metastases. Next in 4. COPD 5. Chronic intermittent asthma 6. Hypertension 7. DJD X This 67-year-old woman with a past medical history multiple medical problems being followed by Dr. Catina Sun in the preceding was admitted with abdominal pain nausea vomiting patient was treated symptomatically. Dr. Ribeiro performed EGD and colonoscopy. Patient also had back complaining of back pain. CAT scan showed diffuse skeletal lesions. Evaluated hematology oncology. The skeletal lesions are stable for several years and thought to be secondary to chronic lymphatic leukemia and noted no evidence of metastatic malignancy per Dr. Delgado. On exam vitals stable cardio S1 and S2 normal. Abdomen soft nontender no system no focal deficit. The patient be discharged in a stable condition with guarded prognosis with outpatient follow-up Dr. Sun in the symptoms Dr. Delgado. Total time taken 35 minutes. Patient Condition at Discharge: Fair Plan - Discharge Summary New Discharge Prescriptions: New predniSONE 10 mg PO DAILY tab Ciprofloxacin HCl [Cipro] 500 mg PO BID #10 tab Continue Lisinopril-Hctz 20-25 mg [Zestoretic 20-25] 1 tab PO DAILY Pantoprazole Sodium [Protonix] 40 mg PO DAILY #30 tablet. Morphine Sulfate Ir [MSIR] 15 mg PO TID PRN PRN Reason: Pain Morphine Sulfate ER [Ms Contin] 30 mg PO BID PRN PRN Reason: Pain Amitriptyline HCl [Elavil] 200 mg PO HS Ondansetron Odt [Zofran ODT] 4 mg PO Q8HR PRN #20 tab PRN Reason: Nausea Hydrocodone/Acetaminophen [Raymond 5-325] 1 tab PO Q6HR PRN PRN Reason: Pain Discharge Medication List Lisinopril-Hctz 20-25 mg [Zestoretic 20-25] 1 tab PO DAILY 10/16/16 [History] Pantoprazole Sodium [Protonix] 40 mg PO DAILY #30 tablet. 10/20/16 [Rx] Amitriptyline HCl [Elavil] 200 mg PO HS 11/04/16 [History] Morphine Sulfate ER [Ms Contin] 30 mg PO BID PRN 11/04/16 [History] Morphine Sulfate Ir [MSIR] 15 mg PO TID PRN 11/04/16 [History] Ondansetron Odt [Zofran ODT] 4 mg PO Q8HR PRN #20 tab 11/04/16 [Rx] Hydrocodone/Acetaminophen [Raymond 5-325] 1 tab PO Q6HR PRN 12/12/16 [History] Ciprofloxacin HCl [Cipro] 500 mg PO BID #10 tab 12/18/16 [Rx] predniSONE 10 mg PO DAILY tab 12/18/16 [Rx] Follow up Appointment(s)/Referral(s): Memo Sun MD [Primary Care Provider] - 3 Days Vicente Palomino PAC [PHYSICIAN [employer] SUPERVISOR] - 2 Weeks (Patient may follow-up with Vicente Palomino PA-C or Dr. Sreekanth Soliman at [facility] in 2-3 weeks following discharge. ) Luis Fernando Delgado MD [STAFF PHYSICIAN] - 01/05/17 9:45 am Alex Ribeiro MD [STAFF PHYSICIAN] - 1 Week Ambulatory/Diagnostic Orders: Basic Metabolic Panel [LAB.AMB] Time Frame: 3 Days, Location: Determined By Patient Patient Instructions/Handouts: Dehydration (DC), Acute Nausea and Vomiting (DC) Activity/Diet/Wound Care/Special Instructions: DIet: Cardiac Activity: limited TIll F/U Discharge Disposition: HOME SELF-CARE
== END 2016-12-18 14:15 | disposition home or self-care (01) | DRG 392 ==
LOC: EC 10:44 → 5MS5E 14:14
PROVIDERS: ADMIT Family Medicine; ATTEND Family Medicine
PROC: 0DB68ZX Excision of Stomach, Via Natural or Artificial Opening Endoscopic, Diagnostic (ICD-10-PCS; principal; 2016-12-17 11:10)
PROC: 0DJD8ZZ Inspection of Lower Intestinal Tract, Via Natural or Artificial Opening Endoscopic (ICD-10-PCS; 2016-12-17 11:10)
DX: K29.00 Acute gastritis without bleeding (principal); D80.1 Nonfamilial hypogammaglobulinemia; F11.20 Opioid dependence, uncomplicated; C91.11 Chronic lymphocytic leukemia of B-cell type in remission; N39.0 Urinary tract infection, site not specified; E86.0 Dehydration; I10 Essential (primary) hypertension; D63.0 Anemia in neoplastic disease; G40.909 Epilepsy, unspecified, not intractable, without status epilepticus; G89.29 Other chronic pain; J44.9 Chronic obstructive pulmonary disease, unspecified; J45.20 Mild intermittent asthma, uncomplicated; K21.9 Gastro-esophageal reflux disease without esophagitis; K44.9 Diaphragmatic hernia without obstruction or gangrene; K57.90 Diverticulosis of intestine, part unspecified, without perforation or abscess without bleeding; M19.90 Unspecified osteoarthritis, unspecified site; M54.5 Low back pain; K58.9 Irritable bowel syndrome, unspecified; M54.31 Sciatica, right side; G43.909 Migraine, unspecified, not intractable, without status migrainosus; Z85.828 Personal history of other malignant neoplasm of skin; Z87.891 Personal history of nicotine dependence; Z98.1 Arthrodesis status; Z79.899 Other long term (current) drug therapy; Z88.6 Allergy status to analgesic agent; Z88.5 Allergy status to narcotic agent; Z88.2 Allergy status to sulfonamides; Z88.8 Allergy status to other drugs, medicaments and biological substances; Z82.49 Family history of ischemic heart disease and other diseases of the circulatory system
CPT/HCPCS: 36415; 43239; 74022; 74176; 80048; 80053; 81001; 82272; 82550; 82553; 82784; 82785; 83605; 83690; 83735; 84100; 84484; 85025; 85610; 85730; 87040; 87077; 87086; 87186; 88305; 88342; 93005; 96361; 96374; 96375; 96376; 99285

== ENCOUNTER 2017-01-01 11:46 | Emergency (ER) | payer MEDICARE ==
[2017-01-01] MEDS ORDERED: MORPHINE SULFATE 10 MG/ML SYRINGE IVP STA (12:16)
[2017-01-01] MEDS ORDERED: SODIUM CHLORIDE 0.9% 1,000 ML IV ONE (12:16)
--- NOTE | 2017-01-01 12:16 | ED ---
General Adult HPI - General Chief complaint: Syncope Stated complaint: SYNCOPE FALL Time Seen by Provider: 01/01/17 12:00 Source: patient, family, RN notes reviewed Mode of arrival: wheelchair Limitations: no limitations - History of Present Illness Initial comments: This is a 61-year-old female who states she's been having diarrhea recently and has not felt that great. Patient states today she was standing up on a stool in her RV and became sort of sweaty and then the next thing she recalls is being on her back. Patient states she doesn't know if he hit her head are not but she has some lower back pain and has some anterior neck stiffness. Patient denies any chest pain difficulty breathing or shortness of breath either before or after the event. Patient denies any abdominal pain patient denies nausea or vomiting. Patient denies any sites of bleeding that she is aware of. Patient denies any extremity pain or lack of range of motion. Patient states she did not eat any breakfast this morning and because of the diarrhea she does believe she is dehydrated - Related Data Home Medications Medication Instructions Recorded Confirmed Lisinopril-Hctz 20-25 mg 1 tab PO DAILY 10/16/16 01/01/17 [Zestoretic 20-25] Amitriptyline HCl [Elavil] 200 mg PO HS 11/04/16 01/01/17 Morphine Sulfate ER [Ms Contin] 30 mg PO BID PRN 11/04/16 01/01/17 Morphine Sulfate Ir [MSIR] 15 mg PO TID PRN 11/04/16 01/01/17 Hydrocodone/Acetaminophen [[place] 1 tab PO Q6HR PRN 12/12/16 01/01/17 5-325] Previous Rx's Medication Instructions Recorded Pantoprazole Sodium [Protonix] 40 mg PO DAILY #30 tablet. 10/20/16 Ondansetron Odt [Zofran ODT] 4 mg PO Q8HR PRN #20 tab 11/04/16 predniSONE 10 mg PO DAILY tab 12/18/16 Allergies Allergy/AdvReac Type Severity Reaction Status Date / Time ketorolac tromethamine Allergy Anaphylaxis Verified 01/01/17 13:02 [From Toradol] metoclopramide HCl Allergy Anaphylaxis Verified 01/01/17 13:02 [From Reglan] NSAIDS (Non-Steroidal Allergy Nausea & Verified 01/01/17 13:02 Anti-Inflamma Vomiting prochlorperazine edisylate Allergy Anaphylaxis Verified 01/01/17 13:02 [From Compazine] prochlorperazine maleate Allergy Anaphylaxis Verified 01/01/17 13:02 [From Compazine] Sulfa (Sulfonamide Allergy Rash/Hives Verified 01/01/17 13:02 Antibiotics) acetaminophen [From Tylenol] AdvReac Unknown Verified 01/01/17 13:02 Review of Systems ROS Statement: Those systems with pertinent positive or pertinent negative responses have been documented in the HPI. ROS Other: All systems not noted in ROS Statement are negative. 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 History of Any Multi-Drug Resistant Organisms: None Reported Date of last positivie culture/infection: None MDRO Source:: None Past Surgical History: Appendectomy, Back Surgery, Section, Cholecystectomy, Hysterectomy, Orthopedic Surgery, Tonsillectomy Additional Past Surgical History / Comment(s): Recent low back injections, past 4 low back surgery, cervical surgery, removal of basal cell carcinoma from the face, PICC lines since removed, R sided infusaport, BMAs with biopsy, R breast benign lumpectomy, D&C, EGD/colonoscopy Past Anesthesia/Blood Transfusion Reactions: No Reported Reaction Additional Past Anesthesia/Blood Transfusion Reaction / Comment(s): Pt received blood in 2008 without reaction. clausterphobia Past Psychological History: No Psychological Hx Reported Smoking Status: Former smoker - Past Family History Mother Family Medical History: Coronary Artery Disease (CAD) Father Family Medical History: Cancer Additional Family Medical History / Comment(s): father lung cancer General Exam - General Exam Comments Initial Comments: GENERAL: Patient is well-developed and well-nourished. Patient is nontoxic and well- hydrated and is in no acute distress. ENT: Neck is soft and supple. No significant lymphadenopathy is noted. Oropharynx is clear. Moist mucous membranes. Patient has anterior neck tenderness in the sternocleidomastoid muscles EYES: The sclera were anicteric and conjunctiva were pink and moist. Extraocular movements were intact and pupils were equal round and reactive to light. Eyelids were unremarkable. PULMONARY: Unlabored respirations. Good breath sounds bilaterally. No audible rales rhonchi or wheezing was noted. CARDIOVASCULAR: There is a regular rate and rhythm without any murmurs gallops or rubs. ABDOMEN: Soft and nontender with normal bowel sounds. No palpable organomegaly was noted. There is no palpable pulsatile mass. SKIN: Skin is clear with no lesions or rashes and otherwise unremarkable. NEUROLOGIC: Patient is alert and oriented x3. Cranial nerves II through XII are grossly intact. Motor and sensory are also intact. Normal speech, volume and content. Symmetrical smile. MUSCULOSKELETAL: Normal extremities with adequate strength and full range of motion. No lower extremity swelling or edema. No calf tenderness. Patient has some lower back tenderness on the left lower back. LYMPHATICS: No significant lymphadenopathy is noted PSYCHIATRIC: Normal psychiatric evaluation. Normal interpersonal interactions appears functionally intact in deals appropriately with others. No signs of depression. No signs of anxiety. Limitations: no limitations Course Vital Signs 01/01/17 01/01/17 01/01/17 11:50 12:48 13:43 Temperature 99.2 F Pulse Rate 98 88 86 Respiratory 18 20 18 Rate Blood Pressure 169/87 153/86 159/84 O2 Sat by Pulse 99 98 98 Oximetry 01/01/17 14:38 Temperature 97.7 F Pulse Rate 87 Respiratory 18 Rate Blood Pressure 134/73 O2 Sat by Pulse 99 Oximetry Medical Decision Making - Medical Decision Making EKG shows normal sinus rhythm at 92 bpm [place] interval is 148 QRS is 90 QT interval 380 QTC is 469. EKG shows no ST segment elevation or depression. CT of the brain and neck show no acute abnormality. Chest x-ray shows no acute abnormality. - Lab Data Result diagrams: 01/01/17 13:00 01/01/17 13:00 Lab Results 09/15/17 09/15/17 09/15/17 Range/Units 13:00 13:00 13:00 WBC 60.1 H* (3.8-10.6) k/uL RBC 4.36 (3.80-5.40) m/uL Hgb 12.4 (11.4-16.0) gm/dL Hct 39.3 (34.0-46.0) % MCV 90.1 (80.0-100.0) fL MCH 28.4 (25.0-35.0) pg MCHC 31.5 (31.0-37.0) g/dL RDW 20.2 H (11.5-15.5) % Plt Count 262 (150-450) k/uL Neutrophils % (Manual) 21 % Band Neutrophils % 1 % Lymphocytes % (Manual) 75 % Monocytes % (Manual) 4 % Eosinophils % (Manual) 1 % Neutrophils # (Manual) 13.20 H (1.3-7.7) k/uL Lymphocytes # (Manual) 45.08 H (1.0-4.8) k/uL Monocytes # (Manual) 2.40 H (0-1.0) k/uL Eosinophils # (Manual) 0.60 (0-0.7) k/uL Nucleated RBCs 0 (0-0) /100 WBC Manual Slide Review Performed Hypochromasia Slight Anisocytosis Moderate Sodium 141 (137-145) mmol/L Potassium 4.0 (3.5-5.1) mmol/L Chloride 108 H (98-107) mmol/L Carbon Dioxide 20 L (22-30) mmol/L Anion Gap 13 mmol/L BUN 14 (7-17) mg/dL Creatinine 0.68 (0.52-1.04) mg/dL Est GFR (MDRD) Af Amer >60 (>60 ml/min/1.73 sqM) Est GFR (MDRD) Non-Af >60 (>60 ml/min/1.73 sqM) Glucose 110 H (74-99) mg/dL Calcium 10.0 (8.4-10.2) mg/dL Magnesium 1.9 (1.6-2.3) mg/dL Total Bilirubin 0.3 (0.2-1.3) mg/dL AST 45 H (14-36) U/L ALT 57 H (9-52) U/L Alkaline Phosphatase 148 H (38-126) U/L Total Creatine Kinase <20 L (30-135) U/L CK-MB (CK-2) 0.3 (0.0-2.4) ng/mL CK-MB (CK-2) Rel Index Troponin I <0.012 (0.000-0.034) ng/mL Total Protein 7.3 (6.3-8.2) g/dL Albumin 4.6 (3.5-5.0) g/dL Urine Color Urine Appearance (Clear) Urine pH (5.0-8.0) Ur Specific [place] (1.001-1.035) Urine Protein (Negative) Urine Glucose (UA) (Negative) Urine Ketones (Negative) Urine Blood (Negative) Urine Nitrite (Negative) Urine Bilirubin (Negative) Urine Urobilinogen (<2.0) mg/dL Ur Leukocyte Esterase (Negative) 01/01/17 Range/Units 15:00 WBC (3.8-10.6) k/uL RBC (3.80-5.40) m/uL Hgb (11.4-16.0) gm/dL Hct (34.0-46.0) % MCV (80.0-100.0) fL MCH (25.0-35.0) pg MCHC (31.0-37.0) g/dL RDW (11.5-15.5) % Plt Count (150-450) k/uL Neutrophils % (Manual) % Band Neutrophils % % Lymphocytes % (Manual) % Monocytes % (Manual) % Eosinophils % (Manual) % Neutrophils # (Manual) (1.3-7.7) k/uL Lymphocytes # (Manual) (1.0-4.8) k/uL Monocytes # (Manual) (0-1.0) k/uL Eosinophils # (Manual) (0-0.7) k/uL Nucleated RBCs (0-0) /100 WBC Manual Slide Review Hypochromasia Anisocytosis Sodium (137-145) mmol/L Potassium (3.5-5.1) mmol/L Chloride (98-107) mmol/L Carbon Dioxide (22-30) mmol/L Anion Gap mmol/L BUN (7-17) mg/dL Creatinine (0.52-1.04) mg/dL Est GFR (MDRD) Af Amer (>60 ml/min/1.73 sqM) Est GFR (MDRD) Non-Af (>60 ml/min/1.73 sqM) Glucose (74-99) mg/dL Calcium (8.4-10.2) mg/dL Magnesium (1.6-2.3) mg/dL Total Bilirubin (0.2-1.3) mg/dL AST (14-36) U/L ALT (9-52) U/L Alkaline Phosphatase (38-126) U/L Total Creatine Kinase (30-135) U/L CK-MB (CK-2) (0.0-2.4) ng/mL CK-MB (CK-2) Rel Index Troponin I (0.000-0.034) ng/mL Total Protein (6.3-8.2) g/dL Albumin (3.5-5.0) g/dL Urine Color Colorless Urine Appearance Clear (Clear) Urine pH 7.0 (5.0-8.0) Ur Specific [place] 1.005 (1.001-1.035) Urine Protein Negative (Negative) Urine Glucose (UA) Negative (Negative) Urine Ketones Negative (Negative) Urine Blood Negative (Negative) Urine Nitrite Negative (Negative) Urine Bilirubin Negative (Negative) Urine Urobilinogen <2.0 (<2.0) mg/dL Ur Leukocyte Esterase Negative (Negative) Disposition Clinical Impression: Diarrhea, Syncope Disposition: HOME SELF-CARE Condition: Good Instructions: Acute Diarrhea (ED) Referrals: Memo Sun MD [Primary Care Provider] - 1-2 days Time of Disposition: 15:20
--- NOTE | 2017-01-01 13:09 | CT ---
EXAMINATION TYPE: CT brain cspine wo con DATE OF EXAM: 01/01/2017 COMPARISON: 09/04/2012 HISTORY: Pt passed out while on a stool. History of leukemia. CT DLP: Brain 1047.1, Cervical 502.6 mGycm. Automated Exposure Control for Dose Reduction was Utilize d. TECHNIQUE: CT scan of the head and cervical spine are performed without contrast. FINDINGS: There is no acute intracranial hemorrhage, mass effect, or midline shift identified. Smal l interfalcine lipoma is noted. The ventricles and sulci are within normal limits in size. The globe s are intact and the visualized sinuses are clear. Cervical spine is visualized in its entirety from C1 through upper thoracic levels and demonstrates s atisfactory alignment without evidence of acute fracture or dislocation. 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 Prevertebral soft tissue appears within normal limits. The C1-C2 a rticulation is unremarkable. There is a diffuse mottled appearance of the bone marrow with foci of lucency and sclerosis throughou t. This finding is also seen within the visualized posterior ribs and sternum. Lung apices are unrema rkable. There is straightening of the usual cervical lordosis. There is osseous fusion of C4-6 and significan t intervertebral disc space narrowing of C6-C7 with a single fixation screw in the vertebral body of C7 with no extent into the cervical canal. Hyperdense foci are seen along the ligamentum flavum at th is level. Posterior disc osteophyte complex is present at C6-C7 creating at least mild spinal canal s tenosis. IMPRESSION: 1. There is no acute fracture or dislocation evident in the cervical spine. Single C7 fixation screw within the vertebral body appears unchanged from the prior. 2. No acute intracranial hemorrhage, mass effect, or midline shift is seen. 3. Diffuse abnormal bone marrow, most likely on the basis of patient's known history of leukemia. 4. Multilevel degenerative disc disease and osseous fusion of the C4-6 vertebrae creating straighteni ng of the usual cervical lordosis. 5. Disc osteophyte complex at C6-C7 creating at least mild spinal canal stenosis.
[2017-01-01 13:29] LABS: Anisocytosis Moderate; Aty Lym Flag Marked; CH 28.3; CHCM 31.7; HCT 39.3 % (34.0-46.0); HDW 3.32; HGB 12.4 gm/dL (11.4-16.0); Hypochromasia Slight; MCH 28.4 pg (25.0-35.0); MCHC 31.5 g/dL (31.0-37.0); MCV 90.1 fL (80.0-100.0); Mean Platelet Volume 7.5; RBC 4.36 m/uL (3.80-5.40); RDW 20.2 % (11.5-15.5); WBC (Perox) 60.81
[2017-01-01 13:32] LABS: WBC 60.1 k/uL (3.8-10.6)
[2017-01-01 13:34] LABS: ALT 57 U/L (9-52); AST 45 U/L (14-36); Alkaline Phosphatase 148 U/L (38-126); Anion Gap 13 mmol/L; Blood Urea Nitrogen 14 mg/dL (7-17); Carbon Dioxide 20 mmol/L (22-30); Chloride 108 mmol/L (98-107); Glucose 110 mg/dL (74-99); Magnesium 1.9 mg/dL (1.6-2.3); Non-African American GFR(MDRD) >60 (>60 ml/min/1.73 sqM); Sodium 141 mmol/L (137-145); Total Bilirubin 0.3 mg/dL (0.2-1.3); Total Protein 7.3 g/dL (6.3-8.2)
[2017-01-01 13:38] LABS: Add Differential Manual Differential
[2017-01-01 13:40] LABS: Band Neutrophils % 1 %; Manual Review Performed; Nucleated Red Blood Cells 0 /100 WBC (0-0); Total Cells Counted 200
[2017-01-01 13:45] VITALS: RESP 18
[2017-01-01 13:48] LABS: Creatine Kinase <20 U/L (30-135)
[2017-01-01 14:01] LABS: Creatine Kinase MB 0.3 ng/mL (0.0-2.4); Troponin I <0.012 ng/mL (0.000-0.034)
[2017-01-01 14:39] VITALS: BP 134/73; PULSE 87; TEMP 97.7
[2017-01-01 15:11] LABS: Appearance,Urine Clear (Clear); Bilirubin,Urine Negative (Negative); Glucose,Urine (UA) Negative (Negative); Ketones,Urine Negative (Negative); Leukocyte Esterase,Urine Negative (Negative); Nitrite,Urine Negative (Negative); Protein,Urine Negative (Negative); Specific Gravity,Urine 1.005 (1.001-1.035); UA Billing (MACRO vs. MICRO) CHEM; Urobilinogen,Urine <2.0 mg/dL (<2.0)
== END 2017-01-01 15:28 | disposition home or self-care (01) ==
LOC: EC 11:46
DX: R55 Syncope and collapse (principal); R19.7 Diarrhea, unspecified; M54.2 Cervicalgia; I10 Essential (primary) hypertension; Z90.49 Acquired absence of other specified parts of digestive tract; Z88.2 Allergy status to sulfonamides; Z88.5 Allergy status to narcotic agent; Z88.6 Allergy status to analgesic agent; Z88.8 Allergy status to other drugs, medicaments and biological substances; Z79.899 Other long term (current) drug therapy; Z87.891 Personal history of nicotine dependence; W08.XXXA Fall from other furniture, initial encounter
CPT/HCPCS: 99284; 96374; 96361 ×2; 36415; 93005; 80053; 82550; 82553; 83735; 84484; 85025; 81003; 72125; 70450; J2270

== ENCOUNTER 2017-01-05 12:12 | Inpatient (IN) | payer MEDICARE ==
[2017-01-05] MEDS ORDERED: ONDANSETRON 4 MG/2 ML VIAL IVP STA ×2 (12:44→15:07)
[2017-01-05] MEDS ORDERED: SODIUM CHLORIDE 0.9% 1,000 ML IV STA ×2 (12:44→15:07)
[2017-01-05] MEDS ORDERED: DICYCLOMINE 10 MG/ML 2 ML AMP IM STA (12:44)
[2017-01-05] MEDS ORDERED: RX INFO: IV CONTRAST WAS GIVEN 1 EACH MISC MISCELLANE PRN (12:45)
--- NOTE | 2017-01-05 12:51 | ED ---
General Adult HPI <Ronnie Trinidad - Last Filed: 01/05/17 17:06> - General Source: patient, family, RN notes reviewed Mode of arrival: ambulatory Limitations: no limitations <Heather Simpson - Last Filed: 01/05/17 17:11> - General Chief complaint: Nausea/Vomiting/Diarrhea Stated complaint: abdominal pain/diarrhea Time Seen by Provider: 01/05/17 12:27 - History of Present Illness Initial comments: 61-year-old female presents to the emergency department with a chief complaint of nausea vomiting and diarrhea. Patient has had the symptoms for the past for 5 days. She states that she is concerned feel weak she is having hard time getting up and moving around due to how much nausea vomiting diarrhea she's had. Patient denies any fever chills. Patient states that her whole abdomen as crampy but she denies any specific one area of pain. Patient was concerned because she continues to have this discomfort so she thought that she should be evaluated. Patient does admit to history of significant past. Patient denies any recent fever, chills, shortness of breath, chest pain, back pain, abdominal pain, numbness or tingling, dysuria or hematuria, constipation, headaches or visual changes, or any other current symptoms. (Heather Simpson) - Related Data Home Medications Medication Instructions Recorded Confirmed Lisinopril-Hctz 20-25 mg 1 tab PO DAILY 10/16/16 01/05/17 [Zestoretic 20-25] Amitriptyline HCl [Elavil] 200 mg PO HS 11/04/16 01/05/17 Morphine Sulfate ER [Ms Contin] 30 mg PO BID PRN 11/04/16 01/05/17 Morphine Sulfate Ir [MSIR] 15 mg PO TID PRN 11/04/16 01/05/17 Previous Rx's Medication Instructions Recorded Pantoprazole Sodium [Protonix] 40 mg PO DAILY #30 tablet. 10/20/16 Ondansetron Odt [Zofran ODT] 4 mg PO Q8HR PRN #20 tab 11/04/16 predniSONE 10 mg PO DAILY tab 12/18/16 Allergies Allergy/AdvReac Type Severity Reaction Status Date / Time ketorolac tromethamine Allergy Anaphylaxis Verified 01/05/17 12:32 [From Toradol] metoclopramide HCl Allergy Anaphylaxis Verified 01/05/17 12:32 [From Reglan] NSAIDS (Non-Steroidal Allergy Nausea & Verified 01/05/17 12:32 Anti-Inflamma Vomiting prochlorperazine edisylate Allergy Anaphylaxis Verified 01/05/17 12:32 [From Compazine] prochlorperazine maleate Allergy Anaphylaxis Verified 01/05/17 12:32 [From Compazine] Sulfa (Sulfonamide Allergy Rash/Hives Verified 01/05/17 12:32 Antibiotics) acetaminophen [From Tylenol] AdvReac Unknown Verified 01/05/17 12:32 Review of Systems ROS Other: All systems not noted in ROS Statement are negative. <Ronnie Trinidad - Last Filed: 01/05/17 17:06> ROS Other: All systems not noted in ROS Statement are negative. <Heather Simpson - Last Filed: 01/05/17 17:11> ROS Statement: Those systems with pertinent positive or pertinent negative responses have been documented in the HPI. 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 History of Any Multi-Drug Resistant Organisms: None Reported Date of last positivie culture/infection: None MDRO Source:: None Past Surgical History: Appendectomy, Back Surgery, Section, Cholecystectomy, Hysterectomy, Orthopedic Surgery, Tonsillectomy Additional Past Surgical History / Comment(s): Recent low back injections, past 4 low back surgery, cervical surgery, removal of basal cell carcinoma from the face, PICC lines since removed, R sided infusaport, BMAs with biopsy, R breast benign lumpectomy, D&C, EGD/colonoscopy Past Anesthesia/Blood Transfusion Reactions: No Reported Reaction Additional Past Anesthesia/Blood Transfusion Reaction / Comment(s): Pt received blood in 2008 without reaction. clausterphobia Past Psychological History: No Psychological Hx Reported Smoking Status: Former smoker Past Alcohol Use History: None Reported Past Drug Use History: None Reported - Past Family History Mother Family Medical History: Coronary Artery Disease (CAD) Father Family Medical History: Cancer Additional Family Medical History / Comment(s): father lung cancer <Heather Simpson - Last Filed: 01/05/17 17:11> General Exam <Ronnie Trinidad - Last Filed: 01/05/17 17:06> Limitations: no limitations <Heather Simpson - Last Filed: 01/05/17 17:11> - General Exam Comments Initial Comments: General: The patient is awake and alert, in no distress, and does not appear acutely ill. Eye: Pupils are equal, round and reactive to light, extra-ocular movements are intact; there is normal conjunctiva bilaterally. No signs of icterus. Ears, nose, mouth and throat: There are moist mucous membranes and no oral lesions. Neck: The neck is supple, there is no tenderness. Cardiovascular: There is a regular rate and rhythm. No murmur, rub or gallop is appreciated. Respiratory: Lungs are clear to auscultation, respirations are non-labored, breath sounds are equal. No wheezes, stridor, rales, or rhonchi. Gastrointestinal: Soft, non-distended, non-tender abdomen without masses or organomegaly noted. There is no rebound or guarding present. No CVA tenderness. Bowel sounds are unremarkable. Back: There is no tenderness to palpation in the midline. There is no obvious deformity. No rashes noted. Musculoskeletal: Normal ROM, no tenderness, There is no pedal edema. There is no calf tenderness or swelling. Sensation intact. Pulses equal bilaterally 2+. Neurological: CN II-XII intact, There are no obvious motor or sensory deficits. Coordination appears grossly intact. Speech is normal. Skin: Skin is warm and dry and no rashes or lesions are noted. Psychiatric: Cooperative, appropriate mood & affect, normal judgment. (Heather Simpson) Medical Decision Making - Lab Data Result diagrams: 01/05/17 13:50 01/05/17 13:50 <Ronnie Trinidad - Last Filed: 01/05/17 17:06> - Lab Data Result diagrams: 01/05/17 13:50 01/05/17 13:50 - Radiology Data Radiology results: report reviewed, image reviewed <Heather Simpson - Last Filed: 01/05/17 17:11> - Medical Decision Making The patient was seen and examined. All diagnostics were reviewed. I have discussed the case with the PA and agree with the findings as documented. (Ronnie Trinidad) 61-year-old female presents to the emergency department with a chief complaint of nausea vomiting and diarrhea. This time patient's lab work is reviewed. She is an elevated white blood cell count however this is chronic for her with her CLL. She comes in for intractable nausea vomiting diarrhea she's had all 4 episodes of nausea medication with no improvement. This time we'll admit for continued care and IV hydration. Patient is in agreement with plan. (Heather Simpson ) - Lab Data Lab Results 01/05/17 01/05/17 01/05/17 Range/Units 13:50 13:50 13:50 WBC 52.7 H* (3.8-10.6) k/uL RBC 3.84 (3.80-5.40) m/uL Hgb 10.9 L (11.4-16.0) gm/dL Hct 33.6 L (34.0-46.0) % MCV 87.4 (80.0-100.0) fL MCH 28.4 (25.0-35.0) pg MCHC 32.5 (31.0-37.0) g/dL RDW 20.3 H (11.5-15.5) % Plt Count 195 (150-450) k/uL Neutrophils % (Manual) 19 % Lymphocytes % (Manual) 79 % Monocytes % (Manual) 3 % Eosinophils % (Manual) 1 % Neutrophils # (Manual) 10.01 H (1.3-7.7) k/uL Lymphocytes # (Manual) 41.63 H (1.0-4.8) k/uL Monocytes # (Manual) 1.58 H (0-1.0) k/uL Eosinophils # (Manual) 0.53 (0-0.7) k/uL Nucleated RBCs 0 (0-0) /100 WBC Manual Slide Review Performed Poikilocytosis (manual Present Anisocytosis Moderate PT (9.0-12.0) sec INR (<1.2) APTT (22.0-30.0) sec Sodium 141 (137-145) mmol/L Potassium 3.3 L (3.5-5.1) mmol/L Chloride 110 H (98-107) mmol/L Carbon Dioxide 21 L (22-30) mmol/L Anion Gap 10 mmol/L BUN 10 (7-17) mg/dL Creatinine 0.60 (0.52-1.04) mg/dL Est GFR (MDRD) Af Amer >60 (>60 ml/min/1.73 sqM) Est GFR (MDRD) Non-Af >60 (>60 ml/min/1.73 sqM) Glucose 90 (74-99) mg/dL Plasma Lactic Acid Eddie 0.9 (0.7-2.0) mmol/L Calcium 8.8 (8.4-10.2) mg/dL Phosphorus 2.8 (2.5-4.5) mg/dL Magnesium 1.7 (1.6-2.3) mg/dL Total Bilirubin 0.3 (0.2-1.3) mg/dL AST 28 (14-36) U/L ALT 34 (9-52) U/L Alkaline Phosphatase 133 H (38-126) U/L Total Protein 5.9 L (6.3-8.2) g/dL Albumin 3.5 (3.5-5.0) g/dL Urine Color Urine Appearance (Clear) Urine pH (5.0-8.0) Ur Specific [place] (1.001-1.035) Urine Protein (Negative) Urine Glucose (UA) (Negative) Urine Ketones (Negative) Urine Blood (Negative) Urine Nitrite (Negative) Urine Bilirubin (Negative) Urine Urobilinogen (<2.0) mg/dL Ur Leukocyte Esterase (Negative) 01/05/17 01/05/17 Range/Units 13:50 13:50 WBC (3.8-10.6) k/uL RBC (3.80-5.40) m/uL Hgb (11.4-16.0) gm/dL Hct (34.0-46.0) % MCV (80.0-100.0) fL MCH (25.0-35.0) pg MCHC (31.0-37.0) g/dL RDW (11.5-15.5) % Plt Count (150-450) k/uL Neutrophils % (Manual) % Lymphocytes % (Manual) % Monocytes % (Manual) % Eosinophils % (Manual) % Neutrophils # (Manual) (1.3-7.7) k/uL Lymphocytes # (Manual) (1.0-4.8) k/uL Monocytes # (Manual) (0-1.0) k/uL Eosinophils # (Manual) (0-0.7) k/uL Nucleated RBCs (0-0) /100 WBC Manual Slide Review Poikilocytosis (manual Anisocytosis PT 10.3 (9.0-12.0) sec INR 1.0 (<1.2) APTT 21.9 L (22.0-30.0) sec Sodium (137-145) mmol/L Potassium (3.5-5.1) mmol/L Chloride (98-107) mmol/L Carbon Dioxide (22-30) mmol/L Anion Gap mmol/L BUN (7-17) mg/dL Creatinine (0.52-1.04) mg/dL Est GFR (MDRD) Af Amer (>60 ml/min/1.73 sqM) Est GFR (MDRD) Non-Af (>60 ml/min/1.73 sqM) Glucose (74-99) mg/dL Plasma Lactic Acid Eddie (0.7-2.0) mmol/L Calcium (8.4-10.2) mg/dL Phosphorus (2.5-4.5) mg/dL Magnesium (1.6-2.3) mg/dL Total Bilirubin (0.2-1.3) mg/dL AST (14-36) U/L ALT (9-52) U/L Alkaline Phosphatase (38-126) U/L Total Protein (6.3-8.2) g/dL Albumin (3.5-5.0) g/dL Urine Color Light Yellow Urine Appearance Clear (Clear) Urine pH 7.0 (5.0-8.0) Ur Specific [place] 1.008 (1.001-1.035) Urine Protein Negative (Negative) Urine Glucose (UA) Negative (Negative) Urine Ketones Negative (Negative) Urine Blood Negative (Negative) Urine Nitrite Negative (Negative) Urine Bilirubin Negative (Negative) Urine Urobilinogen <2.0 (<2.0) mg/dL Ur Leukocyte Esterase Negative (Negative) Disposition <Ronnie Trinidad - Last Filed: 01/05/17 17:06> Decision Date: 01/05/17 Decision Time: 17:11 <Heather Simpson - Last Filed: 01/05/17 17:11> Clinical Impression: Intractable nausea and vomiting, CLL (chronic lymphocytic leukemia), Diarrhea, Intractable abdominal pain, Diarrhea Disposition: ADMITTED IP TO THIS [facility] Condition: Stable Referrals: Memo Sun MD [Primary Care Provider] - 1-2 days
[2017-01-05 14:06] LABS: Anisocytosis Moderate; Aty Lym Flag Moderate; CH 28.5; CHCM 32.8; HCT 33.6 % (34.0-46.0); HDW 3.31; HGB 10.9 gm/dL (11.4-16.0); MCH 28.4 pg (25.0-35.0); MCHC 32.5 g/dL (31.0-37.0); MCV 87.4 fL (80.0-100.0); Mean Platelet Volume 7.9; RBC 3.84 m/uL (3.80-5.40); RDW 20.3 % (11.5-15.5); WBC (Perox) 53.43
[2017-01-05 14:09] LABS: WBC 52.7 k/uL (3.8-10.6)
[2017-01-05 14:17] LABS: Add Differential Manual Differential
[2017-01-05 14:19] LABS: ALT 34 U/L (9-52); AST 28 U/L (14-36); Alkaline Phosphatase 133 U/L (38-126); Anion Gap 10 mmol/L; Blood Urea Nitrogen 10 mg/dL (7-17); Calcium 8.8 mg/dL (8.4-10.2); Carbon Dioxide 21 mmol/L (22-30); Chloride 110 mmol/L (98-107); Glucose 90 mg/dL (74-99); Magnesium 1.7 mg/dL (1.6-2.3); Non-African American GFR(MDRD) >60 (>60 ml/min/1.73 sqM); Phosphorous 2.8 mg/dL (2.5-4.5); Potassium 3.3 mmol/L (3.5-5.1); Sodium 141 mmol/L (137-145); Total Bilirubin 0.3 mg/dL (0.2-1.3); Total Protein 5.9 g/dL (6.3-8.2)
[2017-01-05 14:21] LABS: Manual Review Performed; Nucleated Red Blood Cells 0 /100 WBC (0-0); Total Cells Counted 200
[2017-01-05 14:26] LABS: Prothrombin Time 10.3 sec (9.0-12.0)
[2017-01-05 14:33] LABS: Partial Thromboplastin Time 21.9 sec (22.0-30.0)
[2017-01-05 14:34] LABS: Appearance,Urine Clear (Clear); Bilirubin,Urine Negative (Negative); Glucose,Urine (UA) Negative (Negative); Ketones,Urine Negative (Negative); Leukocyte Esterase,Urine Negative (Negative); Nitrite,Urine Negative (Negative); Protein,Urine Negative (Negative); Specific Gravity,Urine 1.008 (1.001-1.035); UA Billing (MACRO vs. MICRO) CHEM; Urobilinogen,Urine <2.0 mg/dL (<2.0)
[2017-01-05] MEDS ORDERED: diphenhydrAMINE 50 MG/ML 1 ML VIAL IVP STA (14:56)
--- NOTE | 2017-01-05 15:00 | CT ---
EXAMINATION TYPE: CT abdomen pelvis w con DATE OF EXAM: 01/05/2017 COMPARISON: 12/12/2016 INDICATION: Bilateral lower quadrant pain with diarrhea. DLP: 1296.4 mGycm, Automated exposure control for dose reduction was used. CONTRAST: 100 mL of Omnipaque 300. Study performed without Oral Contrast TECHNIQUE: Axial images were obtained from above the diaphragm to the pubic rami in the axial plane a t 5 mm thick sections. Reconstructed images are reviewed on the computer in the coronal plane. FINDINGS: Limited CT sections are obtained the lung bases. Minimal pneumonitis changes present at the left bas e, likely on the basis of atelectasis.. CT ABDOMEN: Liver: Normal Spleen: Normal Pancreas: Normal Adrenal glands: The adrenal glands are normal. Gallbladder: Surgically absent Kidneys: No masses are evident. No hydronephrosis is present. Delayed images were taken through the kidneys. Cortical renal cysts better visualized on the posterior mid right kidney on delayed imaging . Aorta: Normal Inferior vena cava: Normal. CT PELVIS: Loops of bowel within the abdomen and pelvis are normal. There are loops of bowel which are incom pletely distended or lack oral contrast limiting their evaluation. Appendix: Appears to be surgically absent. Urinary bladder: Normal. Genitourinary structures: Uterus and ovaries are surgically absent. Osseous structures: Diffuse sclerotic metastasis are present throughout the osseous structures. IMPRESSIONS: 1. Diffuse osseous metastasis. 2. Postsurgical changes. 3. Minimal pneumonitis changes left base
[2017-01-05] MEDS ORDERED: HYDROmorphone 1 MG/ML 1 ML SYRINGE IVP STA (15:07)
[2017-01-05] MEDS ORDERED: POTASSIUM CHLORIDE 10 MEQ, LIDOCAINE 2% INJ 10 MG in SODIUM CHLORIDE 0.9% 100 ML IVPB SCH (16:00)
[2017-01-05] MEDS ORDERED: NALOXONE 0.4 MG/ML 1 ML VIAL IV PRN (17:12)
[2017-01-05] MEDS ORDERED: MORPHINE SULFATE IR 15 MG TABLET PO PRN (17:13)
[2017-01-05] MEDS ORDERED: MORPHINE SULFATE ER 30 MG TABLET PO PRN (17:13)
[2017-01-05] MEDS: SODIUM CHLORIDE 0.9% 1,000 ML IV SCH (18:24)
[2017-01-05] MEDS: HYDROmorphone 1 MG/ML 1 ML SYRINGE IV PRN ×2 (18:28→22:21)
[2017-01-05] MEDS: ONDANSETRON 4 MG/2 ML VIAL IVP PRN (20:03)
[2017-01-05] MEDS: MORPHINE SULFATE ER 30 MG TABLET PO SCH (20:12)
[2017-01-05] MEDS: AMITRIPTYLINE HCL 50 MG TAB PO SCH (20:13)
[2017-01-06] MEDS: HYDROmorphone 1 MG/ML 1 ML SYRINGE IV PRN ×8 (01:27→23:36)
[2017-01-06] MEDS: SODIUM CHLORIDE 0.9% 1,000 ML IV SCH ×3 (03:48→23:39)
[2017-01-06] MEDS: ONDANSETRON 4 MG/2 ML VIAL IVP PRN ×3 (04:32→21:56)
[2017-01-06 06:26] LABS: ALT 37 U/L (9-52); AST 23 U/L (14-36); Alkaline Phosphatase 108 U/L (38-126); Anion Gap 6 mmol/L; Blood Urea Nitrogen 7 mg/dL (7-17); Calcium 8.2 mg/dL (8.4-10.2); Carbon Dioxide 23 mmol/L (22-30); Chloride 112 mmol/L (98-107); Glucose 86 mg/dL (74-99); Non-African American GFR(MDRD) >60 (>60 ml/min/1.73 sqM); Potassium 3.7 mmol/L (3.5-5.1); Sodium 141 mmol/L (137-145); Total Bilirubin 0.2 mg/dL (0.2-1.3); Total Protein 5.2 g/dL (6.3-8.2)
[2017-01-06 07:16] LABS: Anisocytosis Slight; Aty Lym Flag Slight; CH 27.3; CHCM 30.8; HCT 30.5 % (34.0-46.0); HDW 3.33; HGB 9.6 gm/dL (11.4-16.0); Hypochromasia Marked; MCH 28.1 pg (25.0-35.0); MCHC 31.5 g/dL (31.0-37.0); MCV 89.2 fL (80.0-100.0); Mean Platelet Volume 7.4; RBC 3.42 m/uL (3.80-5.40); RDW 19.2 % (11.5-15.5); WBC 39.6 k/uL (3.8-10.6); WBC (Perox) 40.46
[2017-01-06] MEDS: LISINOPRIL-HCTZ 20-25 MG 1 EACH TAB PO SCH (07:34)
[2017-01-06] MEDS: PANTOPRAZOLE 40 MG TABLET PO SCH (07:34)
[2017-01-06] MEDS: predniSONE 10 MG TAB PO SCH (07:34)
[2017-01-06] MEDS: MORPHINE SULFATE ER 30 MG TABLET PO SCH ×2 (09:44→21:56)
[2017-01-06 10:33] VITALS: BMI 33.3
[2017-01-06 10:43] LABS: Add Differential Manual Differential
[2017-01-06 10:44] LABS: Nucleated Red Blood Cells 0 /100 WBC (0-0); Total Cells Counted 100
[2017-01-06 10:45] LABS: Manual Review Performed
--- NOTE | 2017-01-06 11:35 | P.HPIM ---
History of Present Illness 61-year-old female presented to the emergency room with complaints of weakness intractable nausea and vomiting and diarrhea diffuse abdominal pain. Patient has history of chronic lymphocytic leukemia. Patient has opioid dependence for chronic pain has had cervical and lumbar surgeries Review of Systems Constitutional: Reports fatigue, Reports sweats, Reports weakness Gastrointestinal: Reports abdominal pain, Reports nausea, Reports vomiting Past Medical History Past Medical History: Asthma, Blood Disorder, Cancer, COPD, GERD/Reflux, GI Bleed, Hypertension, Pneumonia, Seizure Disorder, Thyroid Disorder Additional Past Medical History / Comment(s): CLL, basal cell carcinoma, pt states she does not make gamma globulin and normally gets gammaglobulin infusions monthLy-HAD 3 WEEKS AGO, anemia, rectal bleed, diverticular dx, colitis, IBS, chronic back pain and R sided sciatica, pt states she has seizures and last seizure 01/05/[address] Drs office, bilateral tinnitis, migraines, UTIs, thyroid problem in past, 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 History of Any Multi-Drug Resistant Organisms: None Reported Date of last positivie culture/infection: None MDRO Source:: None Past Surgical History: Appendectomy, Back Surgery, Section, Cholecystectomy, Hysterectomy, Orthopedic Surgery, Tonsillectomy Additional Past Surgical History / Comment(s): Recent low back injections, past 4 low back surgery, cervical surgery, removal of basal cell carcinoma from the face, PICC lines since removed, R sided infusaport, BMAs with biopsy, R breast benign lumpectomy, D&C, EGD/colonoscopy Past Anesthesia/Blood Transfusion Reactions: No Reported Reaction Additional Past Anesthesia/Blood Transfusion Reaction / Comment(s): Pt received blood in 2008 without reaction. clausterphobia Past Psychological History: No Psychological Hx Reported Additional Psychological History / Comment(s): Pt resides with her spouse in their RV. They are back in [place] for the summer. Pt USES A WALKER WHEN UP They have a dog/CAT. Smoking Status: Former smoker Past Alcohol Use History: None Reported Additional Past Alcohol Use History / Comment(s): started smoking 1974 and quit 1979, smoked 1/2 ppd. Past Drug Use History: None Reported - Past Family History Mother Family Medical History: Coronary Artery Disease (CAD) Father Family Medical History: Cancer Additional Family Medical History / Comment(s): father lung cancer Medications and Allergies Home Medications Medication Instructions Recorded Confirmed Type Lisinopril-Hctz 20-25 mg 1 tab PO DAILY 10/16/16 01/05/17 History [Zestoretic 20-25] Pantoprazole Sodium [Protonix] 40 mg PO DAILY #30 tablet. 10/20/16 01/05/17 Rx Amitriptyline HCl [Elavil] 200 mg PO HS 11/04/16 01/05/17 History Morphine Sulfate ER [Ms Contin] 30 mg PO Q12H 11/04/16 01/05/17 History Morphine Sulfate Ir [MSIR] 15 mg PO TID PRN 11/04/16 01/05/17 History Ondansetron Odt [Zofran ODT] 4 mg PO Q8HR PRN #20 tab 11/04/16 01/05/17 Rx predniSONE 10 mg PO DAILY tab 12/18/16 01/05/17 Rx Allergies Allergy/AdvReac Type Severity Reaction Status Date / Time ketorolac tromethamine Allergy Anaphylaxis Verified 01/05/17 12:32 [From Toradol] metoclopramide HCl Allergy Anaphylaxis Verified 01/05/17 12:32 [From Reglan] NSAIDS (Non-Steroidal Allergy Nausea & Verified 01/05/17 12:32 Anti-Inflamma Vomiting prochlorperazine edisylate Allergy Anaphylaxis Verified 01/05/17 12:32 [From Compazine] prochlorperazine maleate Allergy Anaphylaxis Verified 01/05/17 12:32 [From Compazine] Sulfa (Sulfonamide Allergy Rash/Hives Verified 01/05/17 12:32 Antibiotics) acetaminophen [From Tylenol] AdvReac Unknown Verified 01/05/17 12:32 Physical Exam Vitals: Vital Signs Temp Pulse Pulse Pulse Resp BP BP 01/06/17 07:00 98 F 82 20 128/80 01/06/17 04:37 98.5 F 77 16 111/74 01/06/17 01:26 76 16 120/81 01/06/17 00:00 82 86 16 01/05/17 22:26 98 F 86 16 123/59 01/05/17 22:16 98.2 F 82 16 137/87 01/05/17 18:27 98.5 F 84 18 194/98 01/05/17 18:09 98.4 F 83 18 169/84 01/05/17 16:47 97.6 F 83 18 170/85 01/05/17 15:22 98.1 F 84 18 178/84 01/05/17 13:59 98.2 F 83 16 161/77 01/05/17 12:49 99.2 F 88 21 179/101 01/05/17 12:21 97.7 F 95 20 193/89 Pulse Ox 01/06/17 07:00 97 01/06/17 04:37 97 01/06/17 01:26 98 01/06/17 00:00 01/05/17 22:26 95 01/05/17 22:16 100 01/05/17 18:27 98 01/05/17 18:09 97 01/05/17 16:47 98 01/05/17 15:22 96 01/05/17 13:59 99 01/05/17 12:49 98 01/05/17 12:21 100 Intake and Output 01/05/17 01/06/17 01/06/17 22:59 06:59 14:59 Intake Total 400 800 Balance 400 800 Intake: Intake, IV Titration 400 800 Amount Sodium Chloride 0.9% 1, 400 800 000 ml @ 100 mls/hr IV . Q10H [facility] Rx#:[id number] Other: Voiding Method Toilet Toilet # Voids 2 2 Weight 90.718 kg Patient Weight 01/07/17 06:59 Weight 90.718 kg - Constitutional General appearance: mild distress - EENT Eyes: PERRLA Ears: bilateral: normal - Neck Neck: normal ROM - Respiratory Respiratory: bilateral: CTA - Cardiovascular Rhythm: regular - Gastrointestinal General gastrointestinal: soft Localized gastrointestinal: tender: diffuse - Integumentary Integumentary: normal - Neurologic Neurologic: CNII-XII intact - Musculoskeletal Musculoskeletal: generalized weakness - Psychiatric Psychiatric: A&O x's 3, appropriate affect, intact judgment & insight Results CBC & Chem 7: 01/06/17 06:00 01/06/17 06:00 Labs: Abnormal Lab Results - Last 24 Hours (Table) 01/05/17 01/05/17 01/05/17 Range/Units 13:50 13:50 13:50 WBC 52.7 H* (3.8-10.6) k/uL RBC (3.80-5.40) m/uL Hgb 10.9 L (11.4-16.0) gm/dL Hct 33.6 L (34.0-46.0) % RDW 20.3 H (11.5-15.5) % Neutrophils # (Manual) 10.01 H (1.3-7.7) k/uL Lymphocytes # (Manual) 41.63 H (1.0-4.8) k/uL Monocytes # (Manual) 1.58 H (0-1.0) k/uL APTT 21.9 L (22.0-30.0) sec Potassium 3.3 L (3.5-5.1) mmol/L Chloride 110 H (98-107) mmol/L Carbon Dioxide 21 L (22-30) mmol/L Calcium (8.4-10.2) mg/dL Alkaline Phosphatase 133 H (38-126) U/L Total Protein 5.9 L (6.3-8.2) g/dL Albumin (3.5-5.0) g/dL 01/06/17 01/06/17 Range/Units 06:00 06:00 WBC 39.6 H* (3.8-10.6) k/uL RBC 3.42 L (3.80-5.40) m/uL Hgb 9.6 L (11.4-16.0) gm/dL Hct 30.5 L (34.0-46.0) % RDW 19.2 H (11.5-15.5) % Neutrophils # (Manual) 8.71 H (1.3-7.7) k/uL Lymphocytes # (Manual) 28.12 H (1.0-4.8) k/uL Monocytes # (Manual) 2.38 H (0-1.0) k/uL APTT (22.0-30.0) sec Potassium (3.5-5.1) mmol/L Chloride 112 H (98-107) mmol/L Carbon Dioxide (22-30) mmol/L Calcium 8.2 L (8.4-10.2) mg/dL Alkaline Phosphatase (38-126) U/L Total Protein 5.2 L (6.3-8.2) g/dL Albumin 3.0 L (3.5-5.0) g/dL CT scan - abdomen: report reviewed Thrombosis Risk Factor Assmnt - Choose All That Apply Any of the Below Risk Factors Present?: Yes Each Factor Represents 1 point: Hx of IBD, Obesity (BMI >25) Other Risk Factors: Yes Thrombosis Risk Factor Assessment Total Risk Factor Score: 2 Thrombosis Risk Factor Assessment Level: Low Risk Assessment and Plan Plan: Assessment Intractable nausea and vomiting diarrhea Chronic lymphocytic leukemia Weakness History of asthma COPD History of GERD History of hypertension Hypothyroidism Seizure disorder Plan Continue hydration Consultation with oncology Consultation with gastroenterology regarding diarrhea and diffuse abdominal pain
--- NOTE | 2017-01-06 12:48 | P.CONS ---
History of Present Illness - Reason for Consult Consult date: 01/06/17 Nausea vomiting diarrhea Requesting physician: Memo Sun - History of Present Illness 61-year-old female with a history of CLL-B-cell presents with five-day history of nausea vomiting nonbloody diarrhea. Several loose watery stools daily however this morning she had a bowel movement that was more formed. No fever. Pain is generalized across the midabdomen. Tried Kaopectate without much improvement. Stool culture pending. Clostridium difficile testing negative. CT abdomen and pelvis reported diffuse osseous metastasis. Loops of bowel within the abdomen and pelvis normal. EGD/colonoscopy evaluation by Dr. Ribeiro 12/17/2016 for evaluation of nausea vomiting abdominal pain reported mild antral gastritis hiatal hernia and mild diverticulosis. Biopsies consistent with mild to moderate reactive chemical gastropathy. Negative H. pylori. Mild chronic esophagitis. White count 39.6-52.7. Hemoglobin 9.6-10.9. BUN 10. Creatinine 0.6. Total bilirubin 0.3. AST 20. ALT 34. Alk phos is 133. Review of Systems Constitutional: Denies fever, chills, sweats, weight gain, or loss. HEENT: Negative for migraines, blurred vision or loss, earaches, drainage, tinnitus, oral mucosal lesions, dysphagia, or odynophagia. CARDIAC: Negative for chest pain, arrhythmias, or palpitation. RESPIRATORY: Asthma. COPD. Negative for shortness of breath, hemoptysis, cough , or sputum production. GI: See HPI for pertinent findings. : Negative for hematuria, urgency, frequency, polyuria, or dysuria. GYNc: Denies possibility of . Negative vaginal discharge. MUSCULOSKELETAL: Negative for muscle aches, swelling, arthritis, and arthralgias. NEUROLOGIC: Negative for stroke or TIA. Hematologic: CLL. ENDOCRINE: Negative for thyroid problems. SKIN: Negative for rash or itching. PSYCHIATRIC: Negative history for depression and anxiety All systems: negative (See HPI) Past Medical History Past Medical History: Asthma, Blood Disorder, Cancer, COPD, GERD/Reflux, GI Bleed, Hypertension, Pneumonia, Seizure Disorder, Thyroid Disorder Additional Past Medical History / Comment(s): CLL, basal cell carcinoma, pt states she does not make gamma globulin and normally gets gammaglobulin infusions monthLy-HAD 3 WEEKS AGO, anemia, rectal bleed, diverticular dx, colitis, IBS, chronic back pain and R sided sciatica, pt states she has seizures and last seizure 01/05/17 [address] Drs office, bilateral tinnitis, migraines, UTIs, thyroid problem in past, 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 History of Any Multi-Drug Resistant Organisms: None Reported Year Discovered:: None MDRO Source:: None Past Surgical History: Appendectomy, Back Surgery, Section, Cholecystectomy, Hysterectomy, Orthopedic Surgery, Tonsillectomy Additional Past Surgical History / Comment(s): Recent low back injections, past 4 low back surgery, cervical surgery, removal of basal cell carcinoma from the face, PICC lines since removed, R sided infusaport, BMAs with biopsy, R breast benign lumpectomy, D&C, EGD/colonoscopy Past Anesthesia/Blood Transfusion Reactions: No Reported Reaction Additional Past Anesthesia/Blood Transfusion Reaction / Comm: Pt received blood in 2008 without reaction. clausterphobia Past Psychological History: No Psychological Hx Reported Additional Psychological History / Comment(s): Pt resides with her spouse in their RV. They are back in [place] for the summer. Pt USES A WALKER WHEN UP They have a dog/CAT. Smoking Status: Former smoker Past Alcohol Use History: None Reported Additional Past Alcohol Use History / Comment(s): started smoking 1974 and quit 1979, smoked 1/2 ppd. Past Drug Use History: None Reported - Past Family History Mother Family Medical History: Coronary Artery Disease (CAD) Father Family Medical History: Cancer Additional Family Medical History / Comment(s): father lung cancer Medications and Allergies Home Medications Medication Instructions Recorded Confirmed Type Lisinopril-Hctz 20-25 mg 1 tab PO DAILY 10/16/16 01/05/17 History [Zestoretic 20-25] Pantoprazole Sodium [Protonix] 40 mg PO DAILY #30 tablet. 10/20/16 01/05/17 Rx Amitriptyline HCl [Elavil] 200 mg PO HS 11/04/16 01/05/17 History Morphine Sulfate ER [Ms Contin] 30 mg PO Q12H 11/04/16 01/05/17 History Morphine Sulfate Ir [MSIR] 15 mg PO TID PRN 11/04/16 01/05/17 History Ondansetron Odt [Zofran ODT] 4 mg PO Q8HR PRN #20 tab 11/04/16 01/05/17 Rx predniSONE 10 mg PO DAILY tab 12/18/16 01/05/17 Rx Allergies Allergy/AdvReac Type Severity Reaction Status Date / Time ketorolac tromethamine Allergy Anaphylaxis Verified 01/05/17 12:32 [From Toradol] metoclopramide HCl Allergy Anaphylaxis Verified 01/05/17 12:32 [From Reglan] NSAIDS (Non-Steroidal Allergy Nausea & Verified 01/05/17 12:32 Anti-Inflamma Vomiting prochlorperazine edisylate Allergy Anaphylaxis Verified 01/05/17 12:32 [From Compazine] prochlorperazine maleate Allergy Anaphylaxis Verified 01/05/17 12:32 [From Compazine] Sulfa (Sulfonamide Allergy Rash/Hives Verified 01/05/17 12:32 Antibiotics) acetaminophen [From Tylenol] AdvReac Unknown Verified 01/05/17 12:32 Physical Exam Vitals: Vital Signs Temp Pulse Pulse Pulse Resp BP BP 01/06/17 07:00 98 F 82 20 128/80 01/06/17 04:37 98.5 F 77 16 111/74 01/06/17 01:26 76 16 120/81 01/06/17 00:00 82 86 16 01/05/17 22:26 98 F 86 16 123/59 01/05/17 22:16 98.2 F 82 16 137/87 01/05/17 18:27 98.5 F 84 18 194/98 01/05/17 18:09 98.4 F 83 18 169/84 01/05/17 16:47 97.6 F 83 18 170/85 01/05/17 15:22 98.1 F 84 18 178/84 01/05/17 13:59 98.2 F 83 16 161/77 01/05/17 12:49 99.2 F 88 21 179/101 01/05/17 12:21 97.7 F 95 20 193/89 Pulse Ox 01/06/17 07:00 97 01/06/17 04:37 97 01/06/17 01:26 98 01/06/17 00:00 01/05/17 22:26 95 01/05/17 22:16 100 01/05/17 18:27 98 01/05/17 18:09 97 01/05/17 16:47 98 01/05/17 15:22 96 01/05/17 13:59 99 01/05/17 12:49 98 01/05/17 12:21 100 Intake and Output 01/05/17 01/06/17 01/06/17 22:59 06:59 14:59 Intake Total 400 800 Balance 400 800 Intake: Intake, IV Titration 400 800 Amount Sodium Chloride 0.9% 1, 400 800 000 ml @ 100 mls/hr IV . Q10H [facility] Rx#:[id number] Other: Voiding Method Toilet Toilet # Voids 2 2 Weight 90.718 kg Patient Weight 01/07/17 06:59 Weight 90.718 kg General appearance: The patient is alert, oriented, in no acute distress. HET: Head is normocephalic and atraumatic. Pupils are equal and reactive. Oropharynx is clear without lesions. Neck: Supple without lymphadenopathy. Trachea midline. Heart: S1 S2. Regular rate and rhythm. Lungs: No crackles or wheezes are heard. Abdomen: Soft, mild midabdominal tenderness, nondistended with bowel sounds. No peritoneal signs. No palpable organomegaly or masses. Extremities: Normal skin color and turgor. No cyanosis, rash, ulceration, clubbing, or edema. Radial and pedal pulses are 2/4 bilaterally. Neurological: No focal deficits. Strength and sensation are grossly intact. Results CBC & Chem 7: 01/06/17 06:00 01/06/17 06:00 Labs: Abnormal Lab Results - Last 24 Hours (Table) 01/05/17 01/05/17 01/05/17 Range/Units 13:50 13:50 13:50 WBC 52.7 H* (3.8-10.6) k/uL RBC (3.80-5.40) m/uL Hgb 10.9 L (11.4-16.0) gm/dL Hct 33.6 L (34.0-46.0) % RDW 20.3 H (11.5-15.5) % Neutrophils # (Manual) 10.01 H (1.3-7.7) k/uL Lymphocytes # (Manual) 41.63 H (1.0-4.8) k/uL Monocytes # (Manual) 1.58 H (0-1.0) k/uL APTT 21.9 L (22.0-30.0) sec Potassium 3.3 L (3.5-5.1) mmol/L Chloride 110 H (98-107) mmol/L Carbon Dioxide 21 L (22-30) mmol/L Calcium (8.4-10.2) mg/dL Alkaline Phosphatase 133 H (38-126) U/L Total Protein 5.9 L (6.3-8.2) g/dL Albumin (3.5-5.0) g/dL 01/06/17 01/06/17 Range/Units 06:00 06:00 WBC 39.6 H* (3.8-10.6) k/uL RBC 3.42 L (3.80-5.40) m/uL Hgb 9.6 L (11.4-16.0) gm/dL Hct 30.5 L (34.0-46.0) % RDW 19.2 H (11.5-15.5) % Neutrophils # (Manual) 8.71 H (1.3-7.7) k/uL Lymphocytes # (Manual) 28.12 H (1.0-4.8) k/uL Monocytes # (Manual) 2.38 H (0-1.0) k/uL APTT (22.0-30.0) sec Potassium (3.5-5.1) mmol/L Chloride 112 H (98-107) mmol/L Carbon Dioxide (22-30) mmol/L Calcium 8.2 L (8.4-10.2) mg/dL Alkaline Phosphatase (38-126) U/L Total Protein 5.2 L (6.3-8.2) g/dL Albumin 3.0 L (3.5-5.0) g/dL Microbiology - Last 24 Hours (Table) 01/06/17 01:40 Stool Culture - Preliminary Stool CT scan - abdomen: report reviewed (Dr. Fernandes) Assessment and Plan (1) Diarrhea Narrative/Plan: Nausea vomiting diarrhea status post recent EGD colonoscopy possible gastroenteritis Status: Acute (2) CLL (chronic lymphocytic leukemia) Status: Acute (3) Abdominal pain Status: Acute Plan: 1. Antidiarrheals. Additional stool studies pending. Light diet as tolerated. We'll follow with you. Thank you for this kind referral and the opportunity to participate in the care of your patient. This consultation was discussed with Dr. Fernandes. The impression and plan of care have been directed as dictated.
[2017-01-06] MEDS: LOPERAMIDE 2 MG CAP PO SCH ×3 (13:34→20:42)
--- NOTE | 2017-01-06 18:32 | P.CONS ---
History of Present Illness - Reason for Consult Consult date: 01/06/17 CLL Requesting physician: Heather Simpson - Chief Complaint N,V,D - History of Present Illness Please refer to Consult dictated 12/14 as nothing in pt malignancy history has changed, pt has history of B-CLL, mostly on monitoring, she also has history of hypogammoglobulinemia for which she has IVIG infusions about monthly. Pt was seen in the office yesterday by Dr. Delgado for follow up, he labs were stable. He has recommended treatment but pt has refused so she remains on monitoring. Pt states progressive symptoms over the last 2 weeks of nausea, vomiting, weakness and diarrhea. She denies fevers, chest pain, SOB, occasional cough, mild abd discomfort, no dysuria, hematuria, black, bloody or mucus stool, no swelling in the legs, she is ambulatory only short distances. Review of Systems 10 point ROS as stated in HPI Past Medical History Past Medical History: Asthma, Blood Disorder, Cancer, COPD, GERD/Reflux, GI Bleed, Hypertension, Pneumonia, Seizure Disorder, Thyroid Disorder Additional Past Medical History / Comment(s): CLL, basal cell carcinoma, pt states she does not make gamma globulin and normally gets gammaglobulin infusions monthLy-HAD 3 WEEKS AGO, anemia, rectal bleed, diverticular dx, colitis, IBS, chronic back pain and R sided sciatica, pt states she has seizures and last seizure 01/05/17 [address] Drs office, bilateral tinnitis, migraines, UTIs, thyroid problem in past, 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 History of Any Multi-Drug Resistant Organisms: None Reported Year Discovered:: None MDRO Source:: None Past Surgical History: Appendectomy, Back Surgery, Section, Cholecystectomy, Hysterectomy, Orthopedic Surgery, Tonsillectomy Additional Past Surgical History / Comment(s): Recent low back injections, past 4 low back surgery, cervical surgery, removal of basal cell carcinoma from the face, PICC lines since removed, R sided infusaport, BMAs with biopsy, R breast benign lumpectomy, D&C, EGD/colonoscopy Past Anesthesia/Blood Transfusion Reactions: No Reported Reaction Additional Past Anesthesia/Blood Transfusion Reaction / Comm: Pt received blood in 2008 without reaction. clausterphobia Past Psychological History: No Psychological Hx Reported Additional Psychological History / Comment(s): Pt resides with her spouse in their RV. They are back in [place] for the summer. Pt USES A WALKER WHEN UP They have a dog/CAT. Smoking Status: Former smoker Past Alcohol Use History: None Reported Additional Past Alcohol Use History / Comment(s): started smoking 1974 and quit 1979, smoked 1/2 ppd. Past Drug Use History: None Reported - Past Family History Mother Family Medical History: Coronary Artery Disease (CAD) Father Family Medical History: Cancer Additional Family Medical History / Comment(s): father lung cancer Medications and Allergies Home Medications Medication Instructions Recorded Confirmed Type Lisinopril-Hctz 20-25 mg 1 tab PO DAILY 10/16/16 01/05/17 History [Zestoretic 20-25] Pantoprazole Sodium [Protonix] 40 mg PO DAILY #30 tablet. 10/20/16 01/05/17 Rx Amitriptyline HCl [Elavil] 200 mg PO HS 11/04/16 01/05/17 History Morphine Sulfate ER [Ms Contin] 30 mg PO Q12H 11/04/16 01/05/17 History Morphine Sulfate Ir [MSIR] 15 mg PO TID PRN 11/04/16 01/05/17 History Ondansetron Odt [Zofran ODT] 4 mg PO Q8HR PRN #20 tab 11/04/16 01/05/17 Rx predniSONE 10 mg PO DAILY tab 12/18/16 01/05/17 Rx Allergies Allergy/AdvReac Type Severity Reaction Status Date / Time ketorolac tromethamine Allergy Anaphylaxis Verified 01/05/17 12:32 [From Toradol] metoclopramide HCl Allergy Anaphylaxis Verified 01/05/17 12:32 [From Reglan] NSAIDS (Non-Steroidal Allergy Nausea & Verified 01/05/17 12:32 Anti-Inflamma Vomiting prochlorperazine edisylate Allergy Anaphylaxis Verified 01/05/17 12:32 [From Compazine] prochlorperazine maleate Allergy Anaphylaxis Verified 01/05/17 12:32 [From Compazine] Sulfa (Sulfonamide Allergy Rash/Hives Verified 01/05/17 12:32 Antibiotics) acetaminophen [From Tylenol] AdvReac Unknown Verified 01/05/17 12:32 Physical Exam Vitals: Vital Signs Temp Pulse Pulse Resp BP Pulse Ox 01/06/17 17:09 94 18 117/79 01/06/17 15:00 98.5 F 92 18 98/60 99 01/06/17 07:00 98 F 82 20 128/80 97 01/06/17 04:37 98.5 F 77 16 111/74 97 01/06/17 01:26 76 16 120/81 98 01/06/17 00:00 82 86 16 01/05/17 22:26 98 F 86 16 123/59 95 01/05/17 22:16 98.2 F 82 16 137/87 100 01/05/17 18:27 98.5 F 84 18 194/98 98 Intake and Output 01/06/17 01/06/17 01/06/17 06:59 14:59 22:59 Intake Total 800 Balance 800 Intake: Intake, IV Titration 800 Amount Sodium Chloride 0.9% 1, 800 000 ml @ 100 mls/hr IV . Q10H [facility] Rx#:[id number] Other: Voiding Method Toilet Toilet Toilet # Voids 2 1 Weight 90.718 kg Patient Weight 01/07/17 06:59 Weight 90.718 kg - Constitutional General appearance: cooperative, no acute distress, obese - EENT Eyes: anicteric sclerae - Neck Neck: no lymphadenopathy - Respiratory Respiratory: bilateral: CTA - Cardiovascular Heart sounds: normal: S1, S2 leg Peripheral Edema: bilateral: None - Gastrointestinal General gastrointestinal: no absent bowel sounds, no decreased bowel sounds, no distended, no hepatomegaly, no hyperactive bowel sounds, no normal bowel sounds , no organomegaly, no rigid, no scaphoid, soft, no splenomegaly, tenderness, no umbilical hernia, no ventral hernia Localized gastrointestinal: tender: LUQ, epigastric periumbilical - Neurologic Neurologic: CNII-XII intact - Musculoskeletal Musculoskeletal: generalized weakness, strength equal bilaterally - Psychiatric Psychiatric: A&O x's 3, appropriate affect, intact judgment & insight Results CBC & Chem 7: 01/06/17 06:00 01/06/17 06:00 Labs: Abnormal Lab Results - Last 24 Hours (Table) 01/06/17 01/06/17 Range/Units 06:00 06:00 WBC 39.6 H* (3.8-10.6) k/uL RBC 3.42 L (3.80-5.40) m/uL Hgb 9.6 L (11.4-16.0) gm/dL Hct 30.5 L (34.0-46.0) % RDW 19.2 H (11.5-15.5) % Neutrophils # (Manual) 8.71 H (1.3-7.7) k/uL Lymphocytes # (Manual) 28.12 H (1.0-4.8) k/uL Monocytes # (Manual) 2.38 H (0-1.0) k/uL Chloride 112 H (98-107) mmol/L Calcium 8.2 L (8.4-10.2) mg/dL Total Protein 5.2 L (6.3-8.2) g/dL Albumin 3.0 L (3.5-5.0) g/dL Microbiology - Last 24 Hours (Table) 01/06/17 01:40 Stool Culture - Preliminary Stool CT scan - abdomen: report reviewed CT scan - pelvis: report reviewed Assessment and Plan (1) CLL (chronic lymphocytic leukemia) Narrative/Plan: Pt was just seen by Dr. Delgado yesterday in office. No acute changes in her labs or symptoms at this time, no urgency for treatment, he recommended ongoing follow up and monitoring. WBCs are actually on the low side for pt, no acute intervention at this time. Status: Chronic (2) Abnormal bone radiograph Narrative/Plan: Pt has had similar findings on imaging, the osseous changes are r/t CLL marrow changes. Status: Chronic (3) Hypogammaglobulinemia Narrative/Plan: Will order IG levels for evaluation and supplement as appropriate Status: Chronic
[2017-01-06] MEDS: AMITRIPTYLINE HCL 50 MG TAB PO SCH (20:41)
[2017-01-07] MEDS: HYDROmorphone 1 MG/ML 1 ML SYRINGE IV PRN ×7 (02:38→23:49)
[2017-01-07] MEDS: MORPHINE SULFATE ER 30 MG TABLET PO SCH ×2 (09:18→21:04)
[2017-01-07] MEDS: LOPERAMIDE 2 MG CAP PO SCH ×4 (09:18→19:28)
[2017-01-07] MEDS: predniSONE 10 MG TAB PO SCH (09:19)
[2017-01-07] MEDS: SODIUM CHLORIDE 0.9% 1,000 ML IV SCH ×2 (09:19→18:34)
[2017-01-07] MEDS: LISINOPRIL-HCTZ 20-25 MG 1 EACH TAB PO SCH (09:19)
[2017-01-07] MEDS: PANTOPRAZOLE 40 MG TABLET PO SCH (09:19)
--- NOTE | 2017-01-07 09:33 | P.PN ---
Subjective Principal diagnosis: Nausea vomiting diarrhea abdominal pain 61-year-old female history of CLL evaluated yesterday suspected gastroenteritis. Feels better today. Bowel movements less frequent more formed. Abdominal pain improved. Tolerating diet. No emesis. Afebrile. C. diff negative. Objective - Vital Signs Vital signs: Vital Signs Temp 97.7 F 01/07/17 07:00 Pulse 79 01/07/17 07:00 Resp 16 01/07/17 07:00 BP 114/76 01/07/17 07:00 Pulse Ox 97 01/07/17 07:00 Intake & Output 01/06/17 01/07/17 01/07/17 18:59 06:59 18:59 Intake Total 1200 Balance 1200 Weight 90.718 kg Intake: Intake, IV Titration 800 Amount Sodium Chloride 0.9% 1, 800 000 ml @ 100 mls/hr IV . Q10H [facility] Rx#:[id number] Oral 400 Other: Voiding Method Toilet Toilet # Voids 1 3 - Exam General appearance: The patient is alert, oriented, in no acute distress. HET: Head is normocephalic and atraumatic. Pupils are equal and reactive. Oropharynx is clear without lesions. Neck: Supple without lymphadenopathy. Trachea midline. Heart: S1 S2. Regular rate and rhythm. Lungs: No crackles or wheezes are heard. Abdomen: Soft, mild midabdominal tenderness, nondistended with bowel sounds. No peritoneal signs. No palpable organomegaly or masses. Extremities: Normal skin color and turgor. No cyanosis, rash, ulceration, clubbing, or edema. Radial and pedal pulses are 2/4 bilaterally. Neurological: No focal deficits. Strength and sensation are grossly intact. - Labs CBC & Chem 7: 01/06/17 06:00 01/06/17 06:00 Labs: Abnormal Lab Results - Last 24 Hours (Table) 01/06/17 Range/Units 06:00 Neutrophils # (Manual) 8.71 H (1.3-7.7) k/uL Lymphocytes # (Manual) 28.12 H (1.0-4.8) k/uL Monocytes # (Manual) 2.38 H (0-1.0) k/uL Microbiology - Last 24 Hours (Table) 01/06/17 01:40 Stool Culture - Preliminary Stool Assessment and Plan (1) Diarrhea Narrative/Plan: Nausea vomiting diarrhea status post recent EGD colonoscopy possible gastroenteritis Status: Acute (2) CLL (chronic lymphocytic leukemia) Status: Chronic (3) Abdominal pain Status: Acute Plan: 1. Continue present medical therapy. Assessment and plan of care discussed with Dr. Fernandes
--- NOTE | 2017-01-07 12:04 | P.PN ---
Subjective Patient resting in bed states she had a hard night with increased diarrhea and states she feels she is still too weak to home. States she's had poor appetite Objective - Vital Signs Vital signs: Vital Signs Temp 97.7 F 01/07/17 07:00 Pulse 87 01/07/17 08:00 Resp 16 01/07/17 07:00 BP 114/76 01/07/17 07:00 Pulse Ox 97 01/07/17 07:00 Intake & Output 01/06/17 01/07/17 01/07/17 18:59 06:59 18:59 Intake Total 1200 Balance 1200 Weight 90.718 kg Intake: Intake, IV Titration 800 Amount Sodium Chloride 0.9% 1, 800 000 ml @ 100 mls/hr IV . Q10H [facility] Rx#:[id number] Oral 400 Other: Voiding Method Toilet Toilet Toilet # Voids 1 3 - Constitutional General appearance: Present: mild distress - EENT Eyes: Present: PERRLA Ears: bilateral: normal - Neck Neck: Present: normal ROM - Respiratory Respiratory: bilateral: CTA - Cardiovascular Rhythm: regular - Gastrointestinal General gastrointestinal: Present: soft - Integumentary Integumentary: Present: normal - Neurologic Neurologic: Present: CNII-XII intact - Musculoskeletal Musculoskeletal: Present: generalized weakness - Psychiatric Psychiatric: Present: A&O x's 3, appropriate affect, intact judgment & insight - Labs CBC & Chem 7: 01/06/17 06:00 01/06/17 06:00 Labs: Microbiology - Last 24 Hours (Table) 01/06/17 01:40 Stool Culture - Preliminary Stool Assessment and Plan Plan: Assessment Intractable nausea vomiting possible gastroenteritis Chronic lymphocytic leukemia Diarrhea with abdominal cramping History of asthma History of hypertension History of COPD stable Hypothyroidism GERD Seizure disorder Plan Continue hydration Continue consultation with gastroenterology and oncology Hopeful discharge home soon
[2017-01-07] MEDS: ONDANSETRON 4 MG/2 ML VIAL IVP PRN (16:00)
[2017-01-07] MEDS: AMITRIPTYLINE HCL 50 MG TAB PO SCH (19:27)
--- NOTE | 2017-01-07 23:56 | XR ---
EXAM: XR Chest, 1 View CLINICAL HISTORY: Reason: pt reinserted Mendez needle below port TECHNIQUE: Frontal view of the chest. COMPARISON: Chest radiograph on 01/09/2014 FINDINGS: Hardware: Right-sided Port-A-Cath terminates in the region of the right atrium. Lungs/pleura: Minimal linear atelectasis or scarring in the right lower lung. No focal consolidation. No pleural effusion or pneumothorax. Heart/mediastinum: Borderline size of the cardiac silhouette. Soft tissues: Unremarkable. Bones: No acute fracture. IMPRESSION: No acute disease identified.
[2017-01-08] MEDS: HYDROmorphone 1 MG/ML 1 ML SYRINGE IV PRN ×2 (06:02→09:35)
[2017-01-08] MEDS: SODIUM CHLORIDE 0.9% 1,000 ML IV SCH (06:03)
[2017-01-08 07:09] VITALS: BP 140/77; RESP 16; TEMP 98
[2017-01-08] MEDS: LISINOPRIL-HCTZ 20-25 MG 1 EACH TAB PO SCH (08:07)
[2017-01-08] MEDS: PANTOPRAZOLE 40 MG TABLET PO SCH (08:07)
[2017-01-08] MEDS: MORPHINE SULFATE ER 30 MG TABLET PO SCH (08:08)
[2017-01-08] MEDS: predniSONE 10 MG TAB PO SCH (08:10)
[2017-01-08] MEDS: LOPERAMIDE 2 MG CAP PO SCH (08:10)
[2017-01-08 08:45] VITALS: PULSE 80
[2017-01-08] MEDS ORDERED: IMMUNE GLOBULIN (HUMAN-IGG) 1 GM/10 ML VIAL IV ONE (11:41)
--- NOTE | 2017-01-08 11:56 | P.PN ---
Subjective Principal diagnosis: N,V,D Pt seen today briefly in follow up, she has no acute physical c/o, no fevers or vomiting. Objective - Vital Signs Vital signs: Vital Signs Temp 98.0 F 01/08/17 07:00 Pulse 80 01/08/17 07:45 Resp 16 01/08/17 07:45 BP 140/77 01/08/17 07:00 Pulse Ox 98 01/08/17 07:00 Intake & Output 01/07/17 01/08/17 01/08/17 18:59 06:59 18:59 Intake Total 800 800 Balance 800 800 Intake: Intake, IV Titration 800 400 Amount Sodium Chloride 0.9% 1, 800 400 000 ml @ 100 mls/hr IV . Q10H [facility] Rx#:[id number] Oral 400 Other: Voiding Method Toilet Toilet Toilet # Voids 2 - Exam pt laying flat in bed bed, no acute distress, respirations even and unlabored, alert and oriented x 3 - Constitutional General appearance: Present: cooperative, no acute distress - Labs CBC & Chem 7: 01/06/17 06:00 01/06/17 06:00 Labs: Abnormal Lab Results - Last 24 Hours (Table) 01/06/17 Range/Units 06:00 IgG 433.0 L (700.0-1600.0) mg/dL IgA <25.5 L (60.0-350.0) mg/dL IgM <16.9 L (40.0-280.0) mg/dL Microbiology - Last 24 Hours (Table) 01/06/17 01:40 Stool Culture - Final Stool Assessment and Plan (1) CLL (chronic lymphocytic leukemia) Narrative/Plan: Pt will continue on follow up with Dr. Delgado and CBC will be monitored Status: Chronic (2) Abnormal bone radiograph Status: Chronic (3) Hypogammaglobulinemia Narrative/Plan: IVIG has been scheduled in the office for IGG of 433, appt date and time in chart Status: Chronic
--- NOTE | 2017-01-08 14:05 | P.DS ---
Providers Date of admission: 01/05/17 17:06 Expected date of discharge: 01/08/17 Attending physician: Memo Castro Consults: 01/05/17 17:12 Consult Physician Routine Consulting Provider: Luis Fernando Delgado Consult Reason/Comments: CLL Do you want consulting provider notified?: Yes 01/06/17 11:30 Consult Physician Urgent Consulting Provider: Evelio Lau Consult Reason/Comments: abd pain and diarrhea Do you want consulting provider notified?: Yes Primary care physician: Memo Sun Hospital Course: Final Diagnoses: Intractable nausea and vomiting diarrhea, improving Chronic lymphocytic leukemia Weakness, improving History of asthma COPD History of GERD History of hypertension Hypothyroidism Seizure disorder Hospital course: This is a 61-year-old female presented to the emergency room with complaints of weakness intractable nausea and vomiting and diarrhea diffuse abdominal pain in a patient with chronic lymphocytic leukemia. Patient has opioid dependence for chronic pain has had cervical and lumbar surgeries. Recent EGD reported gastroenteritis. Maintained on IV fluid hydration. Evaluated by GI and oncology with recommendations noted. scheduled for IVIG outpatient with oncology. Significant clinical improvement. Discharge pain RXs given as discussed with Dr. Sun, PCP. Patient has been cleared by all consults for discharge. Patient is being discharged home in a stable condition with guarded prognosis. The impression and plan of care has been dictated as directed. : I performed a H&P examination of this patient and discussed the same with the dictator. I agree with the dictator's note. Any additional findings/opinions/ etc. will be noted. Patient Condition at Discharge: Stable Plan - Discharge Summary New Discharge Prescriptions: Continue Lisinopril-Hctz 20-25 mg [Zestoretic 20-25] 1 tab PO DAILY Pantoprazole Sodium [Protonix] 40 mg PO DAILY #30 tablet. Amitriptyline HCl [Elavil] 200 mg PO HS Ondansetron Odt [Zofran ODT] 4 mg PO Q8HR PRN #20 tab PRN Reason: Nausea predniSONE 10 mg PO DAILY tab Morphine Sulfate ER [Ms Contin] 30 mg PO Q12H #10 Morphine Sulfate Ir [MSIR] 15 mg PO TID PRN #12 PRN Reason: Pain Discharge Medication List Lisinopril-Hctz 20-25 mg [Zestoretic 20-25] 1 tab PO DAILY 10/16/16 [History] Pantoprazole Sodium [Protonix] 40 mg PO DAILY #30 tablet. 10/20/16 [Rx] Amitriptyline HCl [Elavil] 200 mg PO HS 11/04/16 [History] Ondansetron Odt [Zofran ODT] 4 mg PO Q8HR PRN #20 tab 11/04/16 [Rx] predniSONE 10 mg PO DAILY tab 12/18/16 [Rx] Morphine Sulfate ER [Ms Contin] 30 mg PO Q12H #10 01/08/17 [Rx] Morphine Sulfate Ir [MSIR] 15 mg PO TID PRN #12 01/08/17 [Rx] Follow up Appointment(s)/Referral(s): Memo Sun MD [Primary Care Provider] - 01/12/17 10:20 am Luis Fernando Delgado MD [STAFF PHYSICIAN] - 01/14/17 8:00 am (THIS APPT IS FOR IVIG INFUSION. PT WILL BE GIVEN FURTHER APPTS WHEN SEEN) Ambulatory/Diagnostic Orders: Complete Blood Count w/diff [LAB.AMB] Time Frame: 3 Days, Location: Determined By Patient Patient Instructions/Handouts: Acute Nausea and Vomiting (DC), Acute Diarrhea ( GEN), Acute Abdominal Pain (DC) Activity/Diet/Wound Care/Special Instructions: IVIG OP with oncology DIet: cardiac Activity: limited TIll F/U Discharge Disposition: HOME SELF-CARE
== END 2017-01-08 12:51 | disposition home or self-care (01) | DRG 392 ==
LOC: EC 12:12 → 5ONC 17:06
PROVIDERS: ADMIT Family Medicine; ATTEND Family Medicine
DX: K52.9 Noninfective gastroenteritis and colitis, unspecified (principal); C79.51 Secondary malignant neoplasm of bone; C91.10 Chronic lymphocytic leukemia of B-cell type not having achieved remission; D80.1 Nonfamilial hypogammaglobulinemia; F11.20 Opioid dependence, uncomplicated; E03.9 Hypothyroidism, unspecified; G40.909 Epilepsy, unspecified, not intractable, without status epilepticus; G89.29 Other chronic pain; I10 Essential (primary) hypertension; J44.9 Chronic obstructive pulmonary disease, unspecified; K21.0 Gastro-esophageal reflux disease with esophagitis; K31.9 Disease of stomach and duodenum, unspecified; K44.9 Diaphragmatic hernia without obstruction or gangrene; K57.90 Diverticulosis of intestine, part unspecified, without perforation or abscess without bleeding; M54.31 Sciatica, right side; G43.909 Migraine, unspecified, not intractable, without status migrainosus; Z85.828 Personal history of other malignant neoplasm of skin; Z87.891 Personal history of nicotine dependence; Z79.52 Long term (current) use of systemic steroids; Z79.899 Other long term (current) drug therapy; Z88.6 Allergy status to analgesic agent; Z88.5 Allergy status to narcotic agent; Z88.2 Allergy status to sulfonamides; Z88.8 Allergy status to other drugs, medicaments and biological substances; Z80.1 Family history of malignant neoplasm of trachea, bronchus and lung; Z82.49 Family history of ischemic heart disease and other diseases of the circulatory system
CPT/HCPCS: 36415; 71010; 74177; 80053; 81003; 82784; 83605; 83735; 84100; 85025; 85610; 85730; 87045; 87046; 87324; 96361; 96365; 96366; 96372; 96375; 96376; 99285